=== PATIENT | male | born 1980 | race African-American/Black ===

== ENCOUNTER 2025-06-27 10:10 | Outpatient (CLI) | payer BC, SELFPAY ==
--- OUTSIDE RECORDS SUMMARY | 2025-06-27 10:23 | XMS_ITS ---
Author Name [facility] Address [address] [place] [address] Care Team Providers Care Pharmacy Sales Assistant Name Role Phone CECY DO Primary Care Provider Unavailabl e Insurance Providers: All historical and current Section Date Range: From patient's date of to the date document was created. This section includes the names of all active insurance providers for the patient. Insurance Provider Type of Coverage Plan Name Start of Policy Coverage End of Policy Coverage Group Number Member ID Insurance Provider's Telephone Number Policy Bell's Name Patient's Relationship to Policy Bell [place] PREFERRED PROVIDER ORGANIZAT ION (PPO) FEP BASIC FAM April 03, 2010 [id number] [phone] FIORDALIZA DÍAZ PATIENT ANTHE[place] F[place] PREFERRED PROVIDER ORGANIZAT ION (PPO) FEP BASIC FAM April 03, 2010 [id number] [phone] FIORDALIZA DÍAZ PATIENT [place] F[place] PREFERRED PROVIDER ORGANIZAT ION (PPO) FEP BASIC FAM April 03, 2010 [id number] [phone] FIORDALIZA DÍAZ PATIENT ANTHE[place] FEP PREFERRED PROVIDER ORGANIZAT ION (PPO) FEP BASIC FAMIL Y April 03, 2010 [id number] FIORDALIZA DÍAZ PATIENT ANTHEM FEP PREFERRED PROVIDER ORGANIZAT ION (PPO) FEP BASIC FAMIL Y April 03, 2010 [id number] [phone] FIORDALIZA DÍAZ PATIENT [place] F[place] PREFERRED PROVIDER ORGANIZAT ION (PPO) FEP-B ASIC- PPO April 03, 2010 [id number] [place] PATIENT [place] F[place] PREFERRED PROVIDER ORGANIZAT ION (PPO) FEP BASIC FAM April 03, 2010 [id number] [phone] BOX,FIORDALIZA PATIENT [place] ([id number]) PRESCRIPT ION FEP April 03, 2010 [id number] BOX,FIORDALIZA PATIENT [place] ([id number]) PRESCRIPT ION FEP April 03, 2010 [id number] BOX,FIORDALIZA PATIENT [place] FEP ([id number]) PRESCRIPT ION FEPRX April 03, 2010 [id number] [phone] BOX,FIORDALIZA PATIENT [place] FEP ([id number]) PRESCRIPT ION FEPRX April 03, 2010 [id number] [phone] BOX,FIORDALIZA PATIENT [place] FEP [id number] PRESCRIPT ION FEP RX April 03, 2010 [id number] [phone] BOX,FIORDALIZA PATIENT [place] FEP [id number] PRESCRIPT ION FEP RX April 03, 2010 [id number] [phone] BRE,FIORDALIZA PATIENT Selected Encounter This section includes the information on record at [place] for the Encounter. Date/Time Encounter Type Encounter Description Reason Provider Source Jun 22, 2025 07:48 AM Outpatient Encounter ADMIN PAT ACTIVTIES (MASGREGORIO) SHWETA DAVIS Encounter Template Text not used by [place] Plan of Treatment: Future Appointments (+ 6 months) and Future Tests (+/- 45 days) The Plan of Treatment section includes future care activities for the patient from all [place] treatmentfacilities. This section includes future appointments and future orders which are active, pending or scheduled. Future Appointments This section includes appointments that were scheduled to occur 6 months from the date of the Encounter, up to a maximum of 20 appointments. The data comes from all [place] treatment facilities. Appointment Date/Time Appointment Type Appointme nt Facility Name Jun 25, 2025 01:00 PM AMBULATORY - NONE [facility] Jul 09, 2025 11:00 AM AMBULATORY - NONE [facility] Jul 30, 2025 01:30 PM AMBULATORY - NONE Bryn Vazquez [facility] Oct 01, 2025 09:30 AM AMBULATORY - MEDICINE [facility] Active, Pending, and Scheduled Orders This section includes a listing of several types of active, pending, and scheduled orders, including clinic medications orders, diagnostic test orders, procedure orders and consult orders; where the start date of the order is 45 days before the date of the Encounter or 45 days after the date of theEncounter. The data comes from all [place] treatment facilities. Test Date/Time Test Type Test Details Facility Name Jun 22, 2025 12:00 AM Laboratory - Chemi stry Order OCCULT BLOOD FIT X1 SCREEN STOOL FECES SP [facility] Jul 30, 2025 12:00 AM Imaging - Magnetic Resonance Imaging (MRI) Order MRI SPINE LUMBAR W/O CONT [facility] Jul 30, 2025 12:00 AM Imaging - Magnetic Resonance Imaging (MRI) Order MRI SPINE CERVICAL W/O CONT [facility] Lab Results: +/- 30 days of the encounter This section includes the Chemistry and Hematology Lab Results on record with [place] for the patient. Radiology Reports and Pathology Reports are provided separately, in subsequent sections. Lab Results This section contains the Chemistry/Hematology Results that were resulted 30 days before or 30 daysafter the date of the Encounter. Date/Time Source Result Type Result - Unit Interpretation Reference Range Specimen Type Comment Jun 22, 2025 07:28 AM [facility] GLUCOSE,BLOOD-poct (STL) BLOOD Specimen Type: BLOOD Comment: Test Performed by: [id number] Meter #: [id number] Ordering Provider: RADHA JAMES Report Released Date/Time: Jun 22, 2025 07:31 AM Reporting Lab: [facility] [address] [facility] [id number] Performing Lab: [place] [address] [facility] [address] GLUCOSE,BLOOD-poct (STL) 133 mg/dL H 72-99 Social History: Smoking Status (Most current) and Tobacco Use (All prior to encounter date) This section includes the most current, and the historical, smoking and tobacco- related health factors from the [facility] where the Encounter took place. Current Smoking Status This section includes the most current smoking, or tobacco-related health factor, from the [place] facility where the Encounter took place. Date/Time Current Smoking Status Comment Vicenta juarez Apr 29, 2015 02:46 PM LIFETIME NON-USER OF TOBACCO [facility] Tobacco Use History This section includes a history of the smoking, or tobacco-related health factors, that were collected on or before the date of the Encounter. The data comes from the [place] facility where the Encounter took place. Date/Time Smoking Status/Tobacco Use Comment Cece logan Jun 29, 2014 02:52 PM LIFETIME NON-USER OF TOBACCO [facility] Jul 10, 2013 02:20 PM LIFETIME NON-USER OF TOBACCO [facility] May 24, 2009 08:42 AM LIFETIME NON-USER OF TOBACCO [facility] Encounter Notes: All associated encounter notes This section contains the clinical notes associated to the Encounter. Date/Time Encounter Note(s) Provider Source Jun 22, 2025 07:48 AM ANESTHESIOLOGY DAVID WSHEET: LOCAL TITLE: ANEGeorge INTRA-OP FLOWSHEET ST STANDARD TITLE: ANESTHESIOLOGY FLOWSHEET DATE OF NOTE: JUN 22, 2025@07:48 ENTRY DATE: JUN 22, 2025@07:48:06 AUTHOR: SHWETA DAVIS I EXP COSIGNER: URGENCY: STATUS: COMPLETED Patient: FIORDALIZA DÍAZ SSN: [id number] Date of Operation: 06/22/2025 Surgery Start Time: Surgery End Time: Anesthesia Care Start: 06/22/2025 7:34 Anesthesia Care End: 06/22/2025 7:37 ASA Number: 2 Procedure: colonoscopy Diagnosis: screening Staff: --------- SHWETA DAVIS PRIN. ANES. Procedure Date: 06/22/2025 Procedure Start Time: Procedure End Time: /caroline/ CHECO OCONNOR, FRACTIONATING STILL OPERATOR FRACTIONATING STILL OPERATOR, Anesthesiology Signed: 06/22/2025 07:48 SHWETA DAVIS I [facility]
--- OUTSIDE RECORDS SUMMARY | 2025-06-27 10:23 | XMS_ITS | Encounter Summary ---
Author Name [facility] [place] [facility] [place] [facility] [place] [facility] [place] Address [address] [place] [address] Care Team Providers Care Echocardiograph Technician Name Role Phone CECY DO Primary Care [...] FEP BASIC FAM April 03, 2010 [id number] [phone] FIORDALIZA GROVER PATIENT ANTHEM [place] FEP PREFERRED PROVIDER ORGANIZAT ION (PPO) FEP BASIC FAM April 03, 2010 112 [id number] [phone] FIORDALIZA GROVER PATIENT ANTHEM [place] FEP PREFERRED PROVIDER ORGANIZAT ION (PPO) FEP BASIC FAM April 03, 2010 112 [id number] [phone] FIORDALIZA GROVER PATIENT ANTHEM FEP PREFERRED PROVIDER ORGANIZAT ION (PPO) FEP BASIC FAMIL Y April 03, 2010 112 [id number] [phone] FIORDALIZA GROVER PATIENT ANTHEM FEP PREFERRED PROVIDER ORGANIZAT ION (PPO) FEP BASIC FAMIL Y April 03, 2010 112 [id number] [phone] FIORDALIZA GROVER PATIENT BC BS [place] FEP PREFERRED PROVIDER ORGANIZAT ION (PPO) FEP-B ASIC- PPO April 03, 2010 [id number] BOXFIORDALIZA PATIENT [place] FEP PREFERRED PROVIDER ORGANIZAT ION (PPO) FEP BASIC FAM April 03, 2010 112 [id number] [phone] BOXMARCON PATIENT [place] ([id number]) PRESCRIPT ION FEP April 03, 2010 [id number] BOX,FIORDALIZA PATIENT [place] ([id number]) PRESCRIPT ION FEP April 03, 2010 [id number] BOX,FIORDALIZA PATIENT [place] FEP ([id number]) PRESCRIPT ION FEPRX April 03, 2010 [id number] [phone] BOX,FIORDALIZA PATIENT [place] FEP ([id number]) PRESCRIPT ION FEPRX April 03, 2010 [id number] [phone] BOX,FIORDALIZA PATIENT [place] FEP [id number] PRESCRIPT ION FEP RX April 03, 2010 [id number] [phone] BOX,FIORDALIZA PATIENT [place] FEP [id number] PRESCRIPT ION FEP RX April 03, 2010 [id number] [phone] FIORDALIZA GROVER PATIENT Selected Encounter This section includes the information on record at [place] for the Encounter. Date/Time Encounter Type Encounter Description Reason Provider Source Sep 19, 2024 08:30 AM OFFICE O/P EST MOD 30 MIN PRIMARY CARE/MEDICINE ICD-10-CM E11.9 Type 2 diabetes mellitus without complications GABY JACINTO Monique Encounter Template Text not used by [place] Assessments - Encounter Diagnoses This section includes the primary and secondary diagnoses documented for the Encounter. Date/Time Primary/Secondary Diagnosis Diagnosis Name Provider Source Sep 30, 2024 04:30 PM PRIMARY Type 2 diabetes mellitus without complications GABY JACINTO [facility] Sep 30, 2024 04:30 PM SECONDARY Anxiety disorder, unspecified GABY JACINTO [facility] Sep 30, 2024 04:30 PM SECONDARY Constipation, unspecified GABY JACINTO [facility] Sep 30, 2024 04:30 PM SECONDARY Depression, unspecified GABY JACINTO [facility] Sep 30, 2024 04:30 PM SECONDARY Essential (primary) hypertension GABY JACINTO [facility] Sep 30, 2024 04:30 PM SECONDARY Gastro-esophageal reflux disease without esophagitis GABY JACINTO [facility] Sep 30, 2024 04:30 PM SECONDARY Gout, unspecified GAYB JACINTO [facility] Sep 30, 2024 04:30 PM SECONDARY Headache, unspecified GABY JACINTO [facility] Sep 30, 2024 04:30 PM SECONDARY Hyperlipidemia, unspecified GABY JACINTO [facility] Sep 30, 2024 04:30 PM SECONDARY Insomnia, unspecified GABY JACINTO [facility] Sep 30, 2024 04:30 PM SECONDARY Low back pain, unspecified GABY JACINTO [facility] Sep 30, 2024 04:30 PM SECONDARY Obesity, unspecified GABY JACINTO [facility] Sep 30, 2024 04:30 PM SECONDARY Obstructive sleep apnea (adult) (pediatric) GABY JACINTO [facility] Sep 30, 2024 04:30 PM SECONDARY Other constipation GABY JACINTO [facility] Sep 30, 2024 04:30 PM SECONDARY Pain in left knee GABY JACINTO [facility] Sep 30, 2024 04:30 PM SECONDARY Pain in right hip GABY JACINTO [facility] Sep 30, 2024 04:30 PM SECONDARY Unilateral primary osteoarthritis, left knee GABY JACINTO [facility] Sep 30, 2024 04:30 PM SECONDARY Vitamin B12 deficiency anemia, unspecified GABY JACINTO [facility] Sep 30, 2024 04:30 PM SECONDARY Vitamin D deficiency, unspecified GABY JACINTO [facility] Plan of Treatment: Future Appointments (+ 6 [...] The data comes from all [place] treatment [facility]. Appointment Date/Time Appointment Type Appointme nt Facility Name Sep 26, 2024 08:30 AM AMBULATORY - REHAB MEDICIN [facility] Oct 20, 2024 10:00 AM AMBULATORY - MEDICINE [facility] Oct 22, 2024 01:00 PM AMBULATORY - NONE [facility] Oct 28, 2024 10:30 AM AMBULATORY - MEDICINE [facility] Nov 10, 2024 06:35 PM AMBULATORY - MEDICINE [facility] Dec 19, 2024 02:00 PM AMBULATORY - NONE [facility] Lab Results: +/- 30 days of the encounter This section includes the Chemistry and Hematology Lab Results on record with [facility] for the patient. Radiology Reports and Pathology Reports are provided separately, in subsequent sections. Lab Results This section contains the Chemistry/Hematology Results that were resulted 30 days before or 30 daysafter the date of the Encounter. Date/Time Source Result Type Result - Unit Interpretation Reference Range Specimen Type Comment Sep 25, 2024 09:45 AM [facility] URIC ACID 24-HOUR URINE PANEL 24-HOUR URINE Specimen Type: 24-HOUR URINE No comment entered. Ordering Provider: GABY JACINTO Report Released Date/Time: Sep 19, 2024 08:27 AM Reporting Lab: [facility] [address] [facility] [phone] Performing Lab: [facility] [address] [facility] [address] VOLUME 2847 mL UNCALCULATED URINE URIC ACID comment URIC ACID 24-HOUR URINE 740 L 120-820 Sep 19, 2024 09:11 AM [facility] HGA1C BLOOD Specimen Type: BLOOD No comment entered. Ordering Provider: GABY JACINTO Report Released Date/Time: Sep 19, 2024 08:27 AM Reporting Lab: [facility] [address] [facility] [phone] Performing Lab: [facility] [address] [facility] [facility] [phone] HGA1C 6.3 H 4.0-6.0 Sep 19, 2024 09:11 AM [facility] LIPID PANEL (STL) PLASMA Specimen Type: PLASM A Comment: No hemolysis noted. Ordering Provider: GABY JACINTO Report Released Date/Time: Sep 19, 2024 08:27 AM Reporting Lab: [facility] [address] [place] [phone] Performing Lab: [facility] [address] [place] [phone] CHOLESTEROL 116 mg/dL 0-200 TRIGLYCERIDE 180 mg/dL H 0-150 CALCULATED LDL 51 mg/dL HDL(New) 29 mg/dL L >40 Sep 19, 2024 09:11 AM [facility] VITAMIN D, 25-HYDROXY SERUM Specimen Type: SE RUM Comment: The listed sex of this patient may not be a typical indication for this test. Therefore, reference ranges or interpretive criteria listed may not be valid. Clinical correlation suggested. Ordering Provider: GABY JACINTO Report Released Date/Time: Sep 19, 2024 08:27 AM Reporting Lab: [facility] [address] [facility] [phone] Performing Lab: [facility] [address] [place] [phone] VITAMIN D, 25-HYDROXY 33.3 ng/mL 30-96 Sep 19, 2024 09:11 AM [facility] COMPREHENSIVE METABOLIC PANEL PLASMA Specimen Type: PLASMA Comment: No hemolysis noted. Ordering Provider: GABY JACINTO Report Released Date/Time: Sep 19, 2024 08:27 AM Reporting Lab: [facility] [address] [facility] [phone] Performing Lab: [facility] [address] [facility] [phone] CREATININE 1.06 mg/dL 0.7-1.3 UREA NITROGEN 15.0 mg/dL 9.0-25.0 GLUCOSE 126 mg/dL H 72-99 SODIUM 138 meq/L 136-145 POTASSIUM 4.1 meq/L 3.5-5 CHLORIDE 104 meq/L 98-107 CARBON DIOXIDE 23 meq/L 22-31 CALCIUM 9.1 mg/dL 8.4-10.4 PROTEIN 7.8 g/dL 6-8.6 ALBUMIN 4.2 g/dL 3.4-5 TOTAL BILIRUBIN 0.9 mg/dL 0.2-1.2 ALKALINE PHOSPHATASE 82 U/L 40-150 AST/SGOT 20 U/L 5-34 ALT/SGPT 24 U/L 8-40 EGFR (CKD-EPI 2020) 88.8 >60 Sep 19, 2024 09:11 AM [facility] TSH (MA-PB) SERUM Specimen Type: SERUM Comment: The listed sex of this patient may not be a typical indication for this test. Therefore, reference ranges or interpretive criteria listed may not be valid. Clinical correlation suggested. Ordering Provider: GABY JACINTO Report Released Date/Time: Sep 19, 2024 08:27 AM Reporting Lab: [facility] [address] [facility] [phone] Performing Lab: [facility] [address] [place] [phone] TSH 0.858 u[IU]/mL 0.47-5 Sep 19, 2024 09:11 AM [facility] B12 SERUM Specimen Type: SERUM Comment: The listed sex of this patient may not be a typical indication for this test. Therefore, reference ranges or interpretive criteria listed may not be valid. Clinical correlation suggested. Ordering Provider: GABY JACINTO Report Released Date/Time: Sep 19, 2024 08:27 AM Reporting Lab: [facility] [address] [facility] [address] Performing Lab: [facility] [address] [facility] [phone] B12 214 pg/mL 213-816 Sep 19, 2024 09:11 AM [facility] CBC BLOOD Specimen Type: BLOOD No comment entered. Ordering Provider: GABY JACINTO Report Released Date/Time: Sep 19, 2024 08:27 AM Reporting Lab: [address] [phone] Performing Lab: [address] [address] WBC 5.3 10*3/uL 3.6-11.2 RBC 5.55 10*6/uL 4.10-5.70 HGB 15.8 g/dL 13.1-16.8 HCT 47.9 38.2-48.4 MCV 86.3 fL 80.0-100.0 MCH 28.5 pg 27.0-34.0 MCHC 33.0 g/dL 33.0-36.0 PLT 215 10*3/uL 150-400 MPV 11.2 fL 7.5-11.2 RDW 13.7 11.8-15.1 LYMPHOCYTES, AUTO % 15 MONOCYTES, AUTO % 7 NEUTROPHILS, AUTO % 73 EOSINOPHILS, AUTO % 4 BASOPHILS, AUTO % 1 LYMPHOCYTES, ABSOLUTE 0.78 10*3/uL 0.77- 4.50 MONOCYTES, ABSOLUTE 0.39 10*3/uL 0.19-0. 80 NEUTROPHILS, ABSOLUTE 3.91 10*3/uL 2.10- 8.00 EOSINOPHILS, ABSOLUTE 0.20 10*3/uL 0.00- 0.60 BASOPHILS, ABSOLUTE 0.04 10*3/uL 0.00-0. 20 Sep 19, 2024 09:11 AM [facility] PROST. SPECIFIC AG.(PB-STL) SERUM Specimen Ty pe: SERUM Comment: The listed sex of this patient may not be a typical indication for this test. Therefore, reference ranges or interpretive criteria listed may not be valid. Clinical correlation suggested. Ordering Provider: GABY JACINTO Report Released Date/Time: Sep 19, 2024 08:58 AM Reporting Lab: [facility] [address] [facility] [phone] Performing Lab: [facility] [address] [facility] [address] PROST. SPECIFIC AG.(PB-STL) 0.694 ng/mL 0-4 Sep 19, 2024 09:11 AM [facility] MICRAL/CREAT PROFILE (STL) URINE Specimen Typ e: URINE No comment entered. Ordering Provider: GABY JACINTO Report Released Date/Time: Sep 19, 2024 08:27 AM Reporting Lab: [facility] [address] [facility] [address] Performing Lab: [facility] [address] [facility] [phone] URINE ALBUMIN (PB-STL) 16.9 mg/L uACR (STL) 8 mg/g 0-29 CREATININE URINE/OTHERS 209.4 mg/dL H 63-1 66 Sep 19, 2024 09:11 AM [facility] URINALYSIS (STL-PB) URINE Specimen Type: URIN E No comment entered. Ordering Provider: GABY JACINTO Report Released Date/Time: Sep 19, 2024 08:58 AM Reporting Lab: [address] [phone] Performing Lab: [address] [phone] URINE COLOR Light-Yellow Yellow U.BILIRUBIN Negative mg/dL Negative U.PH 6.0 5.0-8.0 APPEARANCE Clear Clear U.NITRITE Negative mg/dL Negative URN.GLUCOSE > mg/dL H Negative URN.PROTEIN 20 mg/dL H URN.UROBILINOGEN Normal mg/dL Normal URN.BLOOD Negative mg/dL Negative-Trace URN.KETONES Negative mg/dL Negative-Trac e URN.LEUK.EST. Negative mg/dL Negative-Tr ghazal URN.SPECIFIC GRAVITY 1.034 H URINE WBC/HPF <1 /[HPF] 0-5 URINE RBC/HPF <1 /[HPF] 0-5 MUCUS RARE /[LPF] Negative-Rare Vital Signs: All taken on the encounter date This section contains inpatient and outpatient Vital Signs collected on the date of the Encounter. Date/Time Temperature Pulse Blood Pressure Respiratory Rate SP02 Pain Height Weight Body Mass Index Source Sep 19, 2024 08:53 AM 131/91 [facility] Sep 19, 2024 08:25 AM 130/91 [facility] Sep 19, 2024 08:24 AM 98.3 94 129/92 18 96 4 303 41 [facility] Social History: Smoking Status (Most current) and Tobacco Use (All prior to encounter date) This section includes the most current, and the historical, smoking and tobacco- related health factors from the [place] facility where the Encounter took place. Current Smoking Status This section includes the most current smoking, or tobacco-related health factor, from the [place] facility where the Encounter took place. Date/Time Current Smoking Status Comment Facil ity Aug 02, 2023 02:00 PM [facility] Tobacco Use History This section includes a history of the smoking, or tobacco-related health factors, that were collected on or before the date of the Encounter. The data comes from the [place] facility where the Encounter took place. Date/Time Smoking Status/Tobacco Use Comment F acility Apr 28, 2022 02:00 PM VA-TOBACCO NEVER [facility]ED [facility] Feb 04, 2021 09:00 AM VA-TOBACCO NEVER [facility]ED [facility] Jul 07, 2019 03:37 PM VA-TOBACCO NEVER [facility]ED [facility] Dec 11, 2018 01:41 PM VA-TOBACCO NEVER USED [facility] May 29, 2017 03:13 PM LIFETIME NON-USER OF TOBACCO [facility] Nov 29, 2016 03:21 PM LIFETIME NON-USER OF TOBACCO [facility] Encounter Notes: All associated encounter notes This section contains the clinical notes associated to the Encounter. Date/Time Encounter Note(s) Provider Source Oct 14, 2024 11:41 AM PHYSICIAN LETTERS: LOCAL TITLE: TEST RESULT GENERAL LETTER STL STANDARD TITLE: PHYSICIAN LETTERS DATE OF NOTE: OCT 14, 2024@11:41 ENTRY DATE: OCT 14, 2024@11:41:39 AUTHOR: GABY JACINTO COSIGNER: URGENCY: STATUS: COMPLETED [facility] [address] [place] [address] OCT 14, 2024 FIORDALIZA GROVER [address] [place] [address] [place], [place] [address] Dear Fiordaliza Grover, I would like to update you on your recent test results. EMG conclusion 09/26/24: Abnormal study. The electrophysiological changes seen are suggestive of: This is most likely diabetic polyneuropathy with his known history and current symptoms. I am unable to assess small fiber neuropathy with this study. However, the above findings may be related the large fiber involvement. No evidence of nerve root irritation/radiculopathy with normal EMG findings today. These readings are abnormal. Please schedule a telehealth appointment to discuss these results further. If you have any questions please call your behavioral health case manager. I look forward to seeing you at your next clinic appointment. Thank you for choosing the [facility] for your healthcare. FUTURE APPOINTMENTS: 10/22/2024 13:00 [facility] DENTAL SPEC 10/28/2024 10:30 PONCE-ST CLR PACT PHONE LESLIE 12/19/2024 14:00 PONCE-HW CHIRO CONSULT 8TH F 03/23/2025 09:00 PONCE-ST CLR VVC PACT 3 PCP Sincerely, Gaby Jacinto DNP, FORGE HELPER, SURFACER OPERATOR-C Primary Care Nurse Practitioner BOX,GABY MONTAÑO [facility] Oct 06, 2024 04:33 PM PHYSICIAN LETTERS: LOCAL TITLE: TEST RESULT GENERAL LETTER STL STANDARD TITLE: PHYSICIAN LETTERS DATE OF NOTE: OCT 06, 2024@16:33 ENTRY DATE: OCT 06, 2024@16:33:39 AUTHOR: GABY JACINTO EXP COSIGNER: URGENCY: STATUS: COMPLETED [facility] [address] [place] [address] OCT 06, 2024 FIORDALIZA GROVER [address] [facility] [place], [place] [address] Dear Fiordaliza Grover, I would like to update you on your recent test results. LIPID PROFILE - High cholesterol and triglycerides (lipids) are risk factors for heart disease. Your cholesterol should fall between 140 and 200, and your triglycerides levels should be less than or equal to 150. HDL is the good cholesterol and should ideally be greater than 40. LDL is the bad cholesterol and optimal levels should be less than 100 (near optimal is between 100 and 129). TRIGLYCERIDE 180 H mg/dL 09/19/2024 09:11 CHOLESTEROL 116 mg/dL 09/19/2024 09:11 HDL(New) 29 L mg/dL 09/19/2024 09:11 CALCULATED LDL 51 mg/dL 09/19/2024 09:11 These results are abnormal. Continue Atorvastatin as prescribed. See education below. -HDL's (high-density lipoproteins) and LDL's (low-density lipoproteins) transport cholesterol in your blood. LDLs carry cholesterol into your cells and HDLs carry it away and dispose of it in the liver, having a protective effect on your circulatory system. -HDL is good cholesterol and should be above 50. -LDL is bad cholesterol and should be less than 100 for most people including diabetics and less than 70 for people with heart disease. This level is the most important predictor of heart disease in a cholesterol panel. -Triglycerides (TG) are fatty compounds that are a combination of three (tri) fatty acids and glycerin. Body fat is made up of mostly stored triglycerides. -Triglycerides are another type of fat in the blood and should be less than 150. -Total cholesterol should be less than 200. You can improve these values by changing your diet and exercise regimen. Please review the following recommendations: -Incorporate 30-minutes of exercise with walking 5 days per week. Increasing your physical activity can help with weight management and improve your cholesterol levels. -Carefully review nutrition labels. Decrease intake of saturated fats or trans-fats. Monitor your salt intake. -Reduce your intake of sugars such as cake or candy. Additional hidden sugars are found foods such as pastries, breads, and pasta. Monitor your intake of these items as well and try not to consume on a daily basis. -Increase your intake of fresh or frozen fruits and vegetables which is preferred over canned or processed items. Canned foods have high amounts of sugar and salt. -Low fat dairy products are encouraged. -Leaner meats such as chicken or fish can have less fat that beef or pork. GLUCOSE - Your blood sugar or glucose level result GLUCOSE 126 H mg/dL 09/19/2024 09:11 These results are abnormal. A normal non-fasting glucose level is less than 140, and a normal fasting glucose test is less than 100. HEMOGLOBIN A1C - Gives us information about your diabetes (sugar or glucose) control over the past 3 months. Your target is to keep your A1C below 7 %. HGA1C 6.3 H % 09/19/2024 09:11 These results have improved since last check. Great job! Continue medication as prescribed. Continue to check blood sugars as recommended. Reduce the intake of sugary foods/beverages as well as eliminate regular soda. Monitor the frequency and portion sizes of pasta, bread, cereal, potatoes, white rice etc. Eat more whole grains including whole grain breads and pasta when possible. MICROALBUMIN - The microalbumin to creatinine ratio test is most commonly used to screen for kidney problems. MICROALBUMIN No MICRAL/CREAT RATIO (STL) data found Collection time: Sep 19, 2024@09:11 Test Name Result Units Range --------- ------ ----- ----- uACR (STL) 8 mg/g 0 - 29 These readings are within normal limits. CBC - A complete blood count (CBC) gives important information about the kinds and numbers of cells in the blood, especially red blood cells, white blood cells, and platelets. HGB 15.8 g/dL 09/19/2024 09:11 HEMATOCRIT 47.9 % (09/19/24 09:11) PLT 215 10*3/uL 09/19/2024 09:11 WHITE BLOOD COUNT 5.3 10*3/uL (09/19/24 09:11) These readings are within normal limits. B12 - Helps maintain healthy nerve cells, red blood cells, and is also needed to make DNA. B12 214 pg/mL 09/19/2024 09:11 These readings are within normal limits. CHEM 7 - This is important information about the current status of your kidneys, liver, and electrolyte and acid/base balance as well as of your blood sugar and blood proteins. SODIUM 138 mEq/L 09/19/2024 09:11 POTASSIUM 4.1 mEq/L 09/19/2024 09:11 CHLORIDE 104 mEq/L 09/19/2024 09:11 UREA NITROGEN 15.0 mg/dL 09/19/2024 09:11 CREATININE 1.06 mg/dL 09/19/2024 09:11 CALCIUM 9.1 mg/dL 09/19/2024 09:11 CARBON DIOXIDE 23 mEq/L 09/19/2024 09:11 EGFR (CKD-EPI 2020) 88.8 09/19/2024 09:11 These readings are within normal limits. LIVER FUNCTION PANEL - These are tests for liver function: PROTEIN 7.8 g/dL 09/19/2024 09:11 ALBUMIN 4.2 g/dL 09/19/2024 09:11 TOTAL BILIRUBIN 0.9 mg/dL 09/19/2024 09:11 ALKALINE PHOSPHATASE 82 U/L 09/19/2024 09:11 AST/SGOT 20 U/L 09/19/2024 09:11 ALT/SGPT 24 U/L 09/19/2024 09:11 These readings are within normal limits. PSA - Prostate-specific antigen is a protein produced by cells of the prostate gland. The PSA test measures the level of PSA in the blood. PSA PROST. SPECIFIC AG.(PB-STL) 0.694 ng/mL 09/19/2024 09:11 These readings are within normal limits. TSH - Thyroid-stimulating hormone (also known as TSH or thyrotropin) is a peptide hormone synthesized and secreted by thyrotrope cells in the anterior pituitary gland, which regulates the endocrine function of the thyroid gland. TSH 0.858 uIU/mL 09/19/2024 09:11 These readings are within normal limits. VITAMIN D - Helps promote the proper utilization of calcium and phosphorus, thereby producing proper bone maintenance. VITAMIN D, 25-HYDROXY 33.3 ng/mL 09/19/2024 09:11 These readings are within normal limits. URINALYSIS - A urinalysis (or UA) is an array of tests performed on urine and one of the most common methods of medical diagnosis. URINALYSIS URINE COLOR Light-Yellow 09/19/2024 09:11 APPEARANCE Clear 09/19/2024 09:11 U.PH 6.0 09/19/2024 09:11 U.BILIRUBIN Negative mg/dL 09/19/2024 09:11 U.NITRITE Negative mg/dL 09/19/2024 09:11 URINE RBC/HPF <1 /HPF 09/19/2024 09:11 URINE WBC/HPF <1 /HPF 09/19/2024 09:11 MUCUS RARE /LPF 09/19/2024 09:11 These readings are within normal limits. If you have any questions please call your behavioral health case manager. I look forward to seeing you at your next clinic appointment. Thank you for choosing the [facility] for your healthcare. FUTURE APPOINTMENTS: 10/28/2024 10:30 PONCE-ST CLR PACT PHONE LESLIE 12/19/2024 14:00 PONCE- CHIRO CONSULT 8TH F 03/23/2025 09:00 PONCE-ST CLR VVC PACT 3 PCP Sincerely, Gaby Jacinto DNP, FORGE HELPER, SURFACER OPERATOR-C Primary Care Nurse Practitioner BOX,GABY MONTAÑO [facility] Sep 19, 2024 08:26 AM NURSING NOTE: LOCAL TITLE: V15 PACT FACE TO FACE NOTE ST STANDARD TITLE: NURSING NOTE DATE OF NOTE: SEP 19, 2024@08:26 ENTRY DATE: SEP 19, 2024@08:26:17 AUTHOR: SAUNDRA MARTINEZ COSIGNER: URGENCY: STATUS: COMPLETED Provider Visit: Patient Identifiers : Full Name Date of Reason for visit: Established Follow-Up Patient states he is here due to back pain, neck and shoulder pain. Patient states he has muscle spasm in legs/would like labs done. Mode of Arrival: Ambulatory Allergy Review: METHADONE, METFORMIN Allergy list reviewed and remains current. Recent Vital Signs: Temperature: 98.3 F [36.8 C] (09/19/2024 08:24) Pulse: 94 (09/19/2024 08:24) Respiration: 18 (09/19/2024 08:24) B/P: 130/91 (09/19/2024 08:25) Pain: 4 (09/19/2024 08:24) Wt: 303 lb [137.44 kg] (09/19/2024 08:24) Ht: 72 in [182.9 cm] (04/28/2022 14:10) BMI: 41.2 POX: 96% (09/19/2024 08:24) Would you like to discuss any personal problem, family problem, alcohol use, drug use, or a mental or emotional illness? No [facility] ([facility]), please select appointment type: Face to face: Yes- Done Contact provided Primary Care phone number and encouraged to call if any questions or concerns. Review that after hours nurse line [phone] and emergency room are available 04/06 for patient use. Contact verbalized good understanding. Sexual Orientation - CP,L,N,P,PH,PS,S,U: The patient thinks of their sexual orientation as: Straight or Heterosexual Depression Screening - V: Perform PHQ-2 A PHQ-2 screen was performed. The score was 0 which is a negative screen for depression. Over the past two weeks, how often have you been bothered by the following problems? 1. Little interest or pleasure in doing things Not at all 2. Feeling down, depressed, or hopeless Not at all COVID-19 Immunization - L,N,P,PH,U: Refused Pfizer Monovalent COVID-19 vaccine Immunization: COVID-19 (PFIZER), MRNA, LNP-S, PF, BECCA-SUCROSE, 30 MCG/0.3 ML (AGES 12+ YEARS) Refusal Reason: PATIENT DECISION Patient refuses all immunization(s) in the COVID-19 group Date Documented: 09/19/24 08:29 Influenza Immunization - L,N,P,PH,U: Deferral / Refusal The patient declines to receive the recommended dose of seasonal influenza vaccine. Immunization: INFLUENZA, UNSPECIFIED FORMULATION Refusal Reason: PATIENT DECISION Patient refuses all immunization(s) in the FLU group Date Documented: 09/19/24 08:29 Suicide Screen - V: C-SSRS Screening [place] Suicide Severity Rating Scale (C-SSRS) screener 1. Over the past month, have you wished you were or wished you could go to sleep and not wake up? No 2. Over the past month, have you had any actual thoughts of killing yourself? No 3. Over the past month, have you been thinking about how you might do this? Response not required due to responses to other questions. 4. Over the past month, have you had these thoughts and had some intention of acting on them? Response not required due to responses to other questions. 5. Over the past month, have you started to work out or worked out the details of how to kill yourself? Response not required due to responses to other questions. 6. If yes, at any time in the past month did you intend to carry out this plan? Response not required due to responses to other questions. 7. In your lifetime, have you ever done anything, started to do anything, or prepared to do anything to end your life (for example, collected pills, obtained a gun, gave away valuables, went to the roof but didn't jump)? No 8. If YES, was this within the past 3 months? Response not required due to responses to other questions. /caroline/ SAUNDRA MARTINEZ LPN LICENSED PRACITCAL NURSE Signed: 09/19/2024 08:30 SAUNDRA MARTINEZ [facility] Sep 19, 2024 08:23 AM PRIMARY CARE NOTE: LOCAL TITLE: PRIMARY CARE PROVIDER ESTABLISHED VISIT [facility] STANDARD TITLE: PRIMARY CARE NOTE DATE OF NOTE: SEP 19, 2024@08:23 ENTRY DATE: SEP 19, 2024@08:23:31 AUTHOR: GABY JACINTO COSIGNER: URGENCY: STATUS: COMPLETED PRIMARY CARE PROVIDER ESTABLISHED VISIT [facility] Has ADDENDA REASON FOR VISIT/CHIEF COMPLAINT: Evaluation and management of chronic medical conditions/My scheduled visit HPI: Patient is a 43 year old BLACK OR MALE who presents to the clinic for evaluation and management of chronic medical conditions. Patient denies any recent ED visits or hospitalizations. Patient goes by Fiordaliza. Private providers: -Patient prefers for the [facility] to manage his primary care. -Private PCP Dr. Albright every 6 months in [place]. #DM 2: -HGA1C 7.5 H %08/03/2023. -Medications: SEMAGLUTIDE, Empagliflozin, METFORMIN, INSULIN,ASPART and INSULIN,GLARGINE-YFGN. -Reports medication compliance. -Blood sugar readings at home: <150 per patient. -Eye exam: Per [facility] optometry. -Foot exam: See reminders. -Micral: 02/13/23. Due. -Statin: Yes. -ACEI: Yes. -Denies recent hypo/hyperglycemia episodes. -Followed by [facility] pharmacist historically. #HTN: -Medications: Lisinopril. -Reports compliance to medication regimen. -Reports having blood pressure machine at home. -Blood pressure readings at home: >140/90. -Denies CP, SOB, heart palpitations, headaches, blurred vision, dizziness/lightheadedness. #HLD: -Medication: Atorvastatin. -Reports compliance with medication regimen. -Denies any new onset of myalgias. #Obesity: -BMI: 41.18. -Diet: Regular. -Exercise: Denies. #ILSA: -Denies nightly CPAP use. Reports he is intolerable. #GERD: -Medication: Omeprazole. -Reports compliance with medication regimen. -Denies concerns today. #Gout: -Medication: Allopurinol. -Denies compliance with medication regimen. -Denies any recent gout attacks. #Vitamin D deficiency: -Reports compliance with supplementation. #B12 Deficiency: -Reports compliance with supplementation. #Constipation: -Medication: Docusate and Miralax PRN. Declines renewal today. -Controlled per patient. #Left knee pain/OA: -Participated in PT for his knee historically. -Medication: Diclofenac gel and Meloxicam. Declines renewal of Meloxicam. -Has knee sleeve. #Depression/Anxiety/Insomnia: -Stable per patient. -Denies SI/HI. #Headache: -Stable, denies concerns today. -Patient reports notices this is worst when he is not sleeping well. -Denies changes in his headache pattern. #Right hip pain: -Onset: 2022. -Duration: Constant. -Character: Sharp, ache. -Aggravating factors: Prolonged walking. -Relieving factors: Stretching. -Medications: Lidocaine patches and Tylenol PRN. -Treatments: Denies. -Injury: Denies. -Imaging: Denies. -Patient had PT consult 03/06/23. #Hx CP: -Resolved. -Patient had stress test 04/20/23 at the [facility]. -Patient had EKG 06/25/23 at the [facility]. -Patient had echocardiogram 08/15/23 at the [facility]. #LBP: -Onset: Began his in 30s. -Reports having neuropathy to his bilateral legs R>L. -Duration: Intermittent. -Character: Sharp, numbness. -Aggravating factors: Prolonged standing or walking. -Relieving factors: Rest. -Medications: Methocarbamol without relief. -Treatments: Denies. -Injury: Denies. -Imaging: Has obtained historically. Reports having a bulging disc historically. -Denies bowel or bladder incontinence and saddle anesthesia. SOURCE(S) OF HISTORY: Patient PAST MEDICAL HISTORY: 1) Benign essential hypertension (SNOMED CT 3549891) 2) Sleep apnea (SNOMED CT 04161164) 3) Osteoarthritis of knee (SNOMED CT 419263315) 4) Diabetes mellitus type 2 5) Insomnia 6) Gout 7) Constipation 8) Hyperlipidemia 9) Gastroesophageal reflux disease 10) Obesity 11) Vitamin D deficiency 12) Decreased vitamin B12 level 13) Constipation 14) Pain of left knee region 15) Depression 16) Anxiety 17) Headache 18) Pain in right hip joint SOCIAL HISTORY: Tobacco: Denies. Alcohol: Has 1 drink twice per week. Illicit: Denies. ALLERGIES: METHADONE, METFORMIN ALLERGY REVIEW: Allergy list reviewed and remains current. MEDICATIONS: Active and Recently Outpatient Medications (excluding Supplies): Active Outpatient Medications Status 1) ALLOPURINOL 100MG TAB TAKE ONE TABLET BY MOUTH ONCE A ACTIVE DAY FOR GOUT. TAKE WITH PLENTY OF WATER. 2) ATORVASTATIN CALCIUM 40MG TAB TAKE ONE-HALF TABLET BY ACTIVE MOUTH EVERY EVENING FOR CHOLESTEROL. REPORT ANY UNEXPLAINED MUSCLE PAIN/WEAKNESS TO PROVIDER. 3) CHOLECALCIF 50MCG (D3-2,000UNIT) TAB TAKE TWO TABLETS ACTIVE BY MOUTH ONCE A DAY FOR VITAMIN D DEFICIENCY 4) CYANOCOBALAMIN 500MCG TAB TAKE ONE TABLET BY MOUTH ACTIVE ONCE A DAY FOR B12 SUPPLEMENTATION 5) DICLOFENAC NA 1% TOP GEL APPLY 4 GM TO AFFECTED ACTIVE AREA(S) FOUR TIMES A DAY FOR PAIN/INFLAMMATION; NOT MORE THAN 16 GRAMS DAILY TO ANY LOWER EXTREMITY JOINT. NOT MORE THAN 8 GRAMS DAILY TO ANY UPPER EXTREMITY JOINT. MAX 32GM/DAY OVER ALL JOINTS. (MEASURE DOSE WITH RULER ATTACHED INSIDE BOX) 6) EMPAGLIFLOZIN 25MG TAB TAKE ONE-HALF TABLET BY MOUTH ACTIVE ONCE A DAY 7) HYDROPHILIC (EQV EUCERIN) TOP CREAM APPLY LIGHTLY TO ACTIVE AFFECTED AREA(S) ONCE A DAY FOR DRY SKIN. (EXTERNAL USE ONLY) 8) INSULIN SYRINGE 0.5ML 30G 12MM USE 1 SYRINGE UNDER ACTIVE THE SKIN ONCE A DAY TO USE WITH INSULIN 9) INSULIN,ASPART(EQV-NOVLG)100UN/ ML FLXPEN INJECT 10 ACTIVE UNITS UNDER THE SKIN THREE TIMES A DAY BEFORE MEALS FOR BLOOD SUGAR CONTROL. ADMINISTER 10 MINUTES BEFORE FOOD DIRECTED. REFRIGERATE UN-OPENED PENS. DISCARD CARTRIDGE 28 DAYS AFTER OPENING. 10) INSULIN,GLARGINE-YFGN 100UNIT/ML INJ INJECT 42 UNITS ACTIVE UNDER THE SKIN ONCE A DAY TO CONTROL BLOOD SUGAR. ADMINISTER AT SAME TIME EACH DAY DIRECTED. DISCARD ANY VIAL 28 DAYS AFTER OPENING. 11) LIDOCAINE 5% PATCH APPLY 1 PATCH TO SKIN SITE ONCE A ACTIVE DAY NEEDED APPLY PATCH AND PRESS FIRMLY FOR 10-15 SECONDS. KEEP ON FOR 12 HOURS THEN REMOVE PATCH FOR 12 HOURS. 12) LISINOPRIL 40MG TAB TAKE ONE TABLET BY MOUTH ONCE A ACTIVE (S) DAY FOR HEART OR BLOOD PRESSURE 13) METFORMIN HCL 500MG 24HR SA TAB TAKE TWO TABLETS BY ACTIVE MOUTH ONCE A DAY FOR BLOOD SUGAR CONTROL. TAKE WITH FOOD. AVOID ALCOHOL. DISCONTINUE BEFORE GETTING XRAY DYE. 14) METHOCARBAMOL 750MG TAB TAKE 1 TABLET BY MOUTH THREE ACTIVE TIMES A DAY NEEDED FOR MUSCLE RELAXANT 15) OMEPRAZOLE 40MG EC CAP TAKE ONE CAPSULE BY MOUTH ACTIVE EVERY MORNING BEFORE A MEAL TO LOWER STOMACH ACID. TAKE 30 MINUTES PRIOR TO FOOD. Active Non-VA Medications Status 1) Non-VA ACETAMINOPHEN TAB BY MOUTH ACTIVE 2) Non-VA SEMAGLUTIDE 0.25MG/0.375ML INJ PEN 3ML 0.5MG ACTIVE UNDER THE SKIN EVERY WEEK 17 Total Medications REVIEW OF SYSTEMS: Constitutional: Denies weight loss, fever, chills. Ears, Nose, Mouth, Throat: Denies nasal drainage or sore throat. Denies dizziness. Endocrinology: Denies heat or cold intolerance, polydipsia, polyuria, or polyphagia. Cardiovascular: Denies chest pain, palpitations, or dizziness. Respiratory: Denies cough or shortness of breath. ABD/GI: Denies abdominal pain, nausea, vomiting, constipation, diarrhea or incontinence. Musculoskeletal/Extremities: Denies edema. Denies pain. /MANAGER TRANSFUSION: Denies frequency, hesitancy, urgency, or hematuria. Psychology: Denies insomnia or SI/HI. Denies anxiety or depression. Neurology: Denies ZAVALA, tremors, neuropathy, or seizures. Skin: Denies rashes, skin lesions. PHYSICAL EXAMINATION: VITALS (most recent, as listed in the electronic record): Temperature: 98.3 F [36.8 C] (09/19/2024 08:24) BP: 131/91 (09/19/2024 08:53) Pulse: 94 (09/19/2024 08:24) Resp: 18 (09/19/2024 08:24) PulsOx: 96% (09/19/2024 08:24) Pain: 4 (09/19/2024 08:24) Weight: Measurement DT WEIGHT LB(KG)[BMI] 09/19/2024 08:24 303(137.44)[41*] 01/29/2024 14:10 309(140.16)[42*] HEENT: EOMI, PERRLA, Moist mucous membranes. No Scleral icterus or cervical lymphadenopathy. Lungs: Clear to auscultation bilaterally. No accessory muscle use. Cardiovascular: Regular rate and rhythm. No murmur. No JVD. Abdomen: Soft, nontender and non-distended. No palpable masses. Positive bowel sounds in all four quadrants. Extremities: No edema. Nontender. Full ROM to all joints. Gait steady. : Deferred. Neurologic: No focal neurological deficits. Psychiatric: Appropriate mood and affect. Skin: Skin warm, dry and intact. No lesions or rashes noted. DATA REVIEW: HGA1C 7.5 H % 08/03/2023 08:24 ======== Lipid Panel: TRIGLYCERIDE 239 H mg/dL 08/03/2023 08:24 CHOLESTEROL 123 mg/dL 08/03/2023 08:24 HDL(New) 31 L mg/dL 08/03/2023 08:24 CALCULATED LDL 44 mg/dL 08/03/2023 08:24 ====== CMP: SODIUM 142 mEq/L 06/23/2023 22:30 POTASSIUM 3.8 mEq/L 06/23/2023 22:30 CHLORIDE 106 mEq/L 06/23/2023 22:30 UREA NITROGEN 19.7 mg/dL 06/23/2023 22:30 CREATININE 1.20 mg/dL 06/23/2023 22:30 CALCIUM 9.0 mg/dL 06/23/2023 22:30 PROTEIN 7.4 g/dL 06/23/2023 22:30 ALBUMIN 4.4 g/dL 06/23/2023 22:30 ALKALINE PHOSPHATASE 74 U/L 06/23/2023 22:30 ALT/SGPT 15 U/L 06/23/2023 22:30 AST/SGOT 18 U/L 06/23/2023 22:30 TOTAL BILIRUBIN 0.9 mg/dL 06/23/2023 22:30 CARBON DIOXIDE 24 mEq/L 06/23/2023 22:30 GLUCOSE 110 H mg/dL 06/23/2023 22:30 EGFR (CKD-EPI 2020) 77.0 06/23/2023 22:30 ======= CBC: WBC 6.4 10*3/uL 06/23/2023 22:30 RBC 5.38 10*6/uL 06/23/2023 22:30 HGB 15.4 g/dL 06/23/2023 22:30 HCT 46.3 % 06/23/2023 22:30 MCV 86.1 fL 06/23/2023 22:30 MCH 28.6 pg 06/23/2023 22:30 MCHC 33.3 g/dL 06/23/2023 22:30 RDW 14.5 % 06/23/2023 22:30 PLT 222 10*3/uL 06/23/2023 22:30 MPV 10.6 fL 06/23/2023 22:30 NEUTROPHILS, AUTO % 61 % 06/23/2023 22:30 LYMPHOCYTES, AUTO % 25 % 06/23/2023 22:30 MONOCYTES, AUTO % 7 % 06/23/2023 22:30 EOSINOPHILS, AUTO % 7 % 06/23/2023 22:30 BASOPHILS, AUTO % 0 % 06/23/2023 22:30 NEUTROPHILS, ABSOLUTE 3.89 10*3/uL 06/23/2023 22:30 LYMPHOCYTES, ABSOLUTE 1.57 10*3/uL 06/23/2023 22:30 MONOCYTES, ABSOLUTE 0.46 10*3/uL 06/23/2023 22:30 EOSINOPHILS, ABSOLUTE 0.47 10*3/uL 06/23/2023 22:30 BASOPHILS, ABSOLUTE 0.02 10*3/uL 06/23/2023 22:30 ======== PSA: PROST. SPECIFIC AG.(PB-STL) 0.822 ng/mL 02/13/2023 12:19 Result: Acceptable Health maintenance: -Declines immunizations today. Immunization Series Date Facility Reaction Info COVID-19 ([facility]), MRNA, LNP-S, * 2 02/16/2021 [facility] <C> COVID-19 (P[facility]ZER), MRNA, LNP-S, * 1 01/26/2021 [facility] <C> INFLUENZA, SPLIT VIRUS, QUADRIVA* 01/05/2020 [facility] PNEUMOCOCCAL CONJUGATE PCV20, PO* 08/04/2022 [facility] PNEUMOCOCCAL POLYSACCHARIDE PPV23 07/27/2015 [facility] TDAP 07/04/2019 [facility] <C> TDAP 12/02/2009 [facility] <C> Colonoscopy: Patient denies family history of colon cancer. PSA: 0.822 ng/mL 02/13/2023. Reports family history of prostate cancer in his father. Eye exam: Evaluation and management per [facility] optometry. Labs ordered: CBC, CMP, A1C, Lipid panel, Vitamin D, TSH, Uric acid, B12 PSA, UA and Micral (fasting). ASSESSMENT/PLAN: DM 2: -Continue to check BG as recommended. -Continue medication regimen. -Reviewed lifestyle modifications. -Educated to check feet daily and to have an eye exam yearly. -Evaluation and management per [facility] endocrinology. Recommend patient schedule an appointment. -Evaluation and management per [facility] nurses educator. Recommend patient schedule an appointment. -Evaluation and management per private PCP for Semaglutide. HTN: -Increase Lisinopril to 60 mg daily. Proper use and side effects reviewed. -Instructed patient to check BP daily 1-2 hours after medications. -Discussed importance of regular exercise and/or physical activity in the control of blood pressure. -Discussed low sodium diet w/ <2 g daily. -Discussed avoidance of caffeine. -Discussed appropriate sleep hygiene and quality with >6 hours of uninterrupted sleep. -RTC placed for BP log with RNCM via phone for f/u. HLD: -Continue medication regimen. -Reviewed lifestyle modifications including participating in a low fat/low cholesterol diet. -Dietitian contact information given. Obesity: -Reviewed lifestyle modifications. -MOVE program and dietitian contact information given. ILSA: -Recommend using CPAP machine nightly. -Clean machine daily and replace filters q6m. -The patient has been advised that using CPAP regularly can decrease cardiac strain and help to control blood pressure. GERD: -Continue medication regimen. -Reviewed lifestyle modifications. -Educated to avoid triggering foods such as alcohol, caffeinated drinks, chocolate, coffee, spicy foods, citrus foods, tomatoes etc. Gout: -Recommend compliance to Allopurinol. -Educated to avoid alcohol, seafood and organ meats. Vitamin D Deficiency: -Continue medication regimen. -Reviewed foods high in vitamin D including: Milk, orange juice, yogurt, salmon, canned tuna fish, cod liver oil and cereals with vitamin D added. B12 Deficiency: -Continue medication regimen. Constipation: -Continue medication regimen. -Lifestyle modifications reviewed. Left knee pain/OA: -Continue medication regimen. -Whole health contact information given. -Evaluation and management per [facility] orthopedics. Recommend patient schedule an appointment. Depression/Anxiety/Insomnia: - crisis line and whole health contact information given. -Patient declines [facility] psychology consult. Headache: -Stable. -Reviewed potential headache triggers. Right hip pain: -Continue medication regimen. -Whole health contact information given. -Evaluation and management per [facility] PT. Recommend patient schedule an appointment. Hx CP: -Resolved. LBP: -Discontinue Methocarbamol. Begin Gabapentin 100 mg at TID PRN. Proper use and side effects reviewed. Patient to notify clinic if this needs to be increased to 300 mg TID PRN. -Whole health contact information given. -EMG ordered. -Lumbar x-ray ordered. -[facility] chiropractor consult placed. RETURN TO CLINIC: 6 months or earlier as needed via [facility]. SUMMARY STATEMENT: Plan of care has been discussed with including expected therapeutic benefits and potential side effects of prescribed medication and treatments. [place] verbalizes understanding and is in agreement with the plan of care. Patient was instructed to keep all scheduled appointments and contact proposal rep for any additional problems. Medication Reconciliation Opt STL: I have reviewed the patient's medication list (including active outpatient prescriptions dispensed from this [facility] (local) and dispensed from another [facility] or [facility] facility (remote) as well as inpatient orders (local pending and active), local clinic medications, locally documented non-VA medications, and local prescriptions that have or been discontinued in the past 90 days.) with the patient and/or his/her care-infant caregiver. Handwritten corrections, additions and/or deletions were made to the list, as appropriate. Corrected Outpatient Medication List was provided to the patient/caregiver. HTN Assess for Elevated BP>=140/90 - N,P,PH: Repeat blood pressure: 131/91 The patient was counseled on the importance of regular exercise and/or physical activity in the control of blood pressure. The patient was instructed to try to participate in 120 minutes of aerobic exercise per week if possible and that any increase in physical activity may be useful in controlling blood pressure. The patient was counseled on the importance of diet and weight loss/ control in the regulation of blood pressure. The patient was counseled to reduce their weight to within 10 percent of their ideal body weight. The possible improvement in blood pressure control with even 5 to 10 pounds of weight loss was reviewed. The contribution of dietary sodium to elevated blood pressure was reviewed. The patient was counseled to have a goal sodium intake of 1500mg per day, with no more than 2300mg per day. The patient was counseled that a diet low in dietary saturated and trans fats is beneficial in lowering blood pressure. The patient was counseled that a diet rich in fresh fruits, vegetables and whole grains is beneficial in lowering blood pressure. The patient was counseled to limit alcohol intake to no more than 2 drinks per day for men and 1 drink per day for women. /caroline/ Gaby Jacinto DNP, FORGE HELPER, SURFACER OPERATOR-C Primary Care Nurse Practitioner Signed: 09/19/2024 09:00 10/06/2024 ADDENDUM STATUS: COMPLETED Labs reviewed from 09/19/24: CBC, CMP, A1C, Lipid panel, Vitamin D, TSH, B12 PSA, UA and Micral (fasting). Will mail result letter to patient. #DM 2: -HGA1C 6.3 H % 09/19/2024. -HGA1C 7.5 H %08/03/2023. -Medications: SEMAGLUTIDE, Empagliflozin, METFORMIN, INSULIN,ASPART and INSULIN,GLARGINE-YFGN. -Continue medication regimen. #HLD: TRIGLYCERIDE 180 H mg/dL 09/19/2024 09:11 CHOLESTEROL 116 mg/dL 09/19/2024 09:11 HDL(New) 29 L mg/dL 09/19/2024 09:11 CALCULATED LDL 51 mg/dL 09/19/2024 09:11 -Medication: Atorvastatin. -Continue medication regimen. /caroline/ Gaby Jacinto DNP, PATRICIA, SURFACER OPERATOR-C Primary Care Nurse Practitioner Signed: 10/06/2024 16:33 10/14/2024 ADDENDUM STATUS: COMPLETED Will mail result letter to patient. RTC placed to discuss results and treatment. EMG conclusion 09/26/24: Abnormal study. The electrophysiological changes seen are suggestive of: This is most likely diabetic polyneuropathy with his known history and current symptoms. I am unable to assess small fiber neuropathy with this study. However, the above findings may be related the large fiber involvement. No evidence of nerve root irritation/radiculopathy with normal EMG findings today. /caroline/ Gaby Jacinto DNP, PATRICIA, SURFACER OPERATOR-C Primary Care Nurse Practitioner Signed: 10/14/2024 11:41 GABY JACINTO [facility]
--- OUTSIDE RECORDS SUMMARY | 2025-06-27 10:23 | XMS_ITS | Encounter Summary ---
Author Name [facility] [place] [facility] [place] Address [address] [place] [address] Care Team Providers Care Teaching Manager Name Role Phone HI CECY Primary Care Provider Unavailforrest mccoy Insurance Providers: All historical and current Section [...] FEP BASIC FAM April 03, 2010 [id number] [phone] FIORDALIZA DÍAZ PATIENT ANTHEM BCBS [place] FEP PREFERRED PROVIDER ORGANIZAT ION (PPO) FEP BASIC FAM April 03, 2010 112 [id number] [phone] FIORDALIZA DÍAZ PATIENT ANTHEM BCBS [place] FEP PREFERRED PROVIDER ORGANIZAT ION (PPO) FEP BASIC FAM April 03, 2010 112 [id number] [phone] FIORDALIZA DÍAZ PATIENT ANTHEM FEP PREFERRED PROVIDER ORGANIZAT ION (PPO) FEP BASIC FAMIL Y April 03, 2010 112 [id number] [phone] FIORDALIZA DÍAZ PATIENT ANTHEM FEP PREFERRED PROVIDER ORGANIZAT ION (PPO) FEP BASIC FAMIL Y April 03, 2010 112 [id number] [phone] FIORDALIZA DÍAZ PATIENT BC BS [place] FEP PREFERRED PROVIDER ORGANIZAT ION (PPO) FEP-B ASIC- PPO April 03, 2010 [id number] BOXFIORDALIZA PATIENT [place] FEP PREFERRED PROVIDER ORGANIZAT ION (PPO) FEP BASIC FAM April 03, 2010 112 [id number] [phone] BOXMARCON PATIENT CAREMARK ([id number]) PRESCRIPT ION FEP April 03, 2010 [id number] BOX,FIORDALIZA PATIENT CAREMARK ([id number]) PRESCRIPT ION FEP April 03, 2010 [id number] BOX,FIORDALIZA PATIENT [place] FEP ([id number]) PRESCRIPT ION FEPRX April 03, 2010 [id number] [phone] BOX,FIORDALIZA PATIENT [place] FEP ([id number]) PRESCRIPT ION FEPRX April 03, 2010 [id number] [phone] BOX,FIORDALIZA PATIENT [place] FEP [id number] PRESCRIPT ION FEP RX April 03, 2010 [id number] [phone] BOX,FIORDALIZA PATIENT [place] FEP [id number] PRESCRIPT ION FEP RX April 03, 2010 [id number] [phone] FIORDALIZA DÍAZ PATIENT Selected Encounter This section includes the information on record at [place] for the Encounter. Date/Time Encounter Type Encounter Description Reason Provider Source April 09, 2025 09:00 AM POS AIRWAY PRESSURE CPAP SLEEP MEDICINE ICD-10-CM G47.33 Obstructive sleep apnea (adult) (pediatric) PATY HOOVER MD E Encounter Template Text not used by [place] Assessments - Encounter Diagnoses This section includes the primary and secondary diagnoses documented for the Encounter. Date/Time Primary/Secondary Diagnosis Diagnosis Name Provider Source April 09, 2025 09:42 AM PRIMARY Obstructive sleep apnea (adult) (pediatric) KYA HUBBARD [facility] Plan of Treatment: Future Appointments (+ 6 months) and Future Tests (+/- 45 days) The Plan of Treatment section includes future care activities for the patient from all [place] treatmentfacilities. This section includes future appointments and future orders which are active, pending or scheduled. Future Appointments This section includes appointments that were scheduled to occur 6 months from the date of the Encounter, up to a maximum of 20 appointments. The data comes from all [facility]. Appointment Date/Time Appointment Type Appointme nt Facility Name May 21, 2025 03:30 PM AMBULATORY - MEDICINE [facility] May 28, 2025 09:00 AM AMBULATORY - NONE [facility] Jun 02, 2025 12:00 PM AMBULATORY - NONE [facility] Jun 22, 2025 07:15 AM AMBULATORY - MEDICINE [facility] Jun 25, 2025 01:00 PM AMBULATORY - NONE [facility] Jul 09, 2025 11:00 AM AMBULATORY - NONE [facility] Jul 30, 2025 01:30 PM AMBULATORY - NONE [facility] Oct 01, 2025 09:30 AM AMBULATORY - MEDICINE [facility] Active, Pending, and Scheduled Orders This section includes a listing of several types of active, pending, and scheduled orders, including clinic medications orders, diagnostic test orders, procedure orders and consult orders; where thestart date of the order is 45 days before the date of the Encounter or 45 days after the date of the Encounter. The data comes from all [facility]. Test Date/Time Test Type Test Details Facility Name March 26, 2025 10:50 AM Consult Order [facility]-SLEEP MANDIBULAR REPOSITIONING DEVICE STL Cons Child Welfare Caseworker's Choice [facility] Lab Results: +/- 30 days of the encounter This section includes the Chemistry and Hematology Lab Results on record with [place] for the patient. Radiology Reports and Pathology Reports are provided separately, in subsequent sections. Lab Results This section contains the Chemistry/Hematology Results that were resulted 30 days before or 30 daysafter the date of the Encounter. Date/Time Source Result Type Result - Unit Interpretation Reference Range Specimen Type Comment April 02, 2025 02:20 PM [facility] HGA1C BLOOD Specimen Type: BLOOD No comment entered. Ordering Provider: GABY GASPAR Report Released Date/Time: March 26, 2025 10:50 AM Reporting Lab: [address] [address] Performing Lab: [facility] [address] [facility] [address] HGA1C 6.9 H 4.0-6.0 April 02, 2025 02:20 PM [facility] CYSTATIN C EGFR PANELS (STL-PB-MA) PLASMA Spec imen Type: PLASMA Comment: Choice of which of the reported eGFR values to use depends on the clinical situation. For example, for patients with severe muscle wasting or reduced muscle mass, eGFR calculated using the 2012 cystatin equation may be preferred. Ordering Provider: GABY GASPAR Report Released Date/Time: March 26, 2025 10:50 AM Reporting Lab: [address] [address] Performing Lab: [address] [address] CYSTATIN C 1.15 mg/L 0.57-1.80 CKD-EPI CYSTATIN C (2011) 68.6 >60 CKD-EPI CREAT-CYSC (2020) 75.4 >60 CREATININE ([facility]) 1.13 mg/dL 0.7-1.3 Social History: Smoking Status (Most current) and Tobacco Use (All prior to encounter date) This section includes the most current, and the historical, smoking and tobacco- related health factors from the [place] facility where the Encounter took place. Current Smoking Status This section includes the most current smoking, or tobacco-related health factor, from the [place] facility where the Encounter took place. Date/Time Current Smoking Status Comment Vicenta juarez Apr 29, 2015 02:46 PM LIFETIME NON-USER OF TOBACCO [facility] Tobacco Use History This section includes a history of the smoking, or tobacco-related health factors, that were collected on or before the date of the Encounter. The data comes from the [place] facility where the Encounter took place. Date/Time Smoking Status/Tobacco Use Comment Cece logan Jun 29, 2014 02:52 PM LIFETIME NON-USER OF TOBACCO [facility] Jul 10, 2013 02:20 PM LIFETIME NON-USER OF TOBACCO [facility] May 24, 2009 08:42 AM LIFETIME NON-USER OF TOBACCO [facility] Encounter Notes: All associated encounter notes This section contains the clinical notes associated to the Encounter. Date/Time Encounter Note(s) Provider Source April 09, 2025 09:40 AM RESPIRATORY THERAP Y CONSULT: LOCAL TITLE: RESPIRATORY THERAPY CONSULT STL STANDARD TITLE: RESPIRATORY THERAPY CONSULT DATE OF NOTE: APRIL 09, 2025@09:40 ENTRY DATE: APRIL 09, 2025@09:41:03 AUTHOR: KYA HUBBARD COSIGNER: URGENCY: STATUS: COMPLETED EDUCATION WAS ALSO PROVIDED TO PATIENT. /geovanni HUBBARD LUBE WORKER REGISTERED RESPIRATORY THERAPIST Signed: 04/09/2025 09:43 KYA HUBBARD [facility] April 09, 2025 09:21 AM RESPIRATORY THERAP Y CONSULT: LOCAL TITLE: RESPIRATORY THERAPY CONSULT STL STANDARD TITLE: RESPIRATORY THERAPY CONSULT DATE OF NOTE: APRIL 09, 2025@09:21 ENTRY DATE: APRIL 09, 2025@09:21:58 AUTHOR: KYA HUBBARD COSIGNER: URGENCY: STATUS: COMPLETED PATIENT ARRIVED FOR APPT TODAY. NEW MACHINE AND SUPPLIES ORDERED THROUGH [employer]. SETTINGS [id number] CONTACT/REPLACEMENT INFO PROVIDED TO PATIENT WELL. /geovanni HUBBARD LUBE WORKER REGISTERED RESPIRATORY THERAPIST Signed: 04/09/2025 09:23 KYA HUBBARD [facility]
--- OUTSIDE RECORDS SUMMARY | 2025-06-27 10:24 | XMS_ITS | Encounter Summary ---
Author Name [facility] [place] [facility] [place] Address [address] [place] [address] Care Team Providers Care Campus Recruiter Name Role Phone PANFILO DOAH Primary Care Provider Unavailforrest e Insurance Providers: All historical and current [...] FEP BASIC FAM April 03, 2010 [id number] [phone] FIORDALIZA DÍAZ PATIENT AN[place] FEP PREFERRED PROVIDER ORGANIZAT ION (PPO) FEP BASIC FAM April 03, 2010 112 [id number] [phone] FIORDALIZA DÍAZ PATIENT AN[place] FEP PREFERRED PROVIDER ORGANIZAT ION (PPO) FEP BASIC FAM April 03, 2010 112 [id number] [phone] FIORDALIZA DÍAZ PATIENT ANTHEM FEP PREFERRED PROVIDER ORGANIZAT ION (PPO) FEP BASIC FAMIL Y April 03, 2010 [id number] FIORDALIZA DÍAZ PATIENT ANTHEM FEP PREFERRED PROVIDER ORGANIZAT ION (PPO) FEP BASIC FAMIL Y April 03, 2010 112 [id number] [phone] FIORDALIZA DÍAZ PATIENT BC BS [place] FEP PREFERRED PROVIDER ORGANIZAT ION (PPO) FEP-B ASIC- PPO April 03, 2010 [id number] FIORDALIZA DÍAZ PATIENT BC[place] FEP PREFERRED PROVIDER ORGANIZAT ION (PPO) FEP BASIC FAM April 03, 2010 112 [id number] [phone] BOXMARCON PATIENT CAREMARK ([id number]) PRESCRIPT ION FEP April 03, 2010 [id number] BOX,FIORDALIZA PATIENT CAREMARK ([id number]) PRESCRIPT ION FEP April 03, 2010 [id number] BOX,FIORDALIZA PATIENT [place] FEP ([id number]) PRESCRIPT ION FEPRX April 03, 2010 [id number] [phone] BOX,FIORDALIZA PATIENT [place] FEP ([id number]) PRESCRIPT ION FEPRX April 03, 2010 [id number] [phone] BOX,FIORDALIZA PATIENT [place] FEP [id number] PRESCRIPT ION FEP RX April 03, 2010 [id number] BOX,FIORDALIZA PATIENT [place] FEP [id number] PRESCRIPT ION FEP RX April 03, 2010 [id number] [phone] FIORDALIZA DÍAZ PATIENT Selected Encounter This section includes the information on record at [place] for the Encounter. Date/Time Encounter Type Encounter Description Reason Pro vider Source Jan 08, 2025 02:58 PM Outpatient Encounter COMMUNITY CARE CONSULT IHE Encounter Template Text not used by [place] Plan of Treatment: Future Appointments (+ 6 months) and Future Tests (+/- 45 days) The Plan of Treatment section includes future care activities for the patient from all [place] treatmentfacilities. This section includes future appointments and future orders which are active, pending or scheduled. Future Appointments This section includes appointments that were scheduled to occur 6 months from the date of the Encounter, up to a maximum of 20 appointments. The data comes from all [place] treatment facilities. Appointment Date/Time Appointment Type Appointme nt Facility Name March 26, 2025 09:30 AM AMBULATORY - MEDICINE [facility] March 27, 2025 08:30 AM AMBULATORY - NONE [facility] April 02, 2025 01:00 PM AMBULATORY - NONE . [facility] April 09, 2025 09:00 AM AMBULATORY - MEDICINE [facility] May 21, 2025 03:30 PM AMBULATORY - MEDICINE [facility] May 28, 2025 09:00 AM AMBULATORY - NONE . [facility] Jun 02, 2025 12:00 PM AMBULATORY - NONE . [facility] Jun 22, 2025 07:15 AM AMBULATORY - MEDICINE . [facility] Jun 25, 2025 01:00 PM AMBULATORY - NONE [facility] Social History: Smoking Status (Most current) and Tobacco Use (All prior to encounter date) This section includes the most current, and the historical, smoking and tobacco- related health factors from the [place] facility where the Encounter took place. Current Smoking Status This section includes the most current smoking, or tobacco-related health factor, from the [place] facility where the Encounter took place. Date/Time Current Smoking Status Comment Vicenta juarez Apr 29, 2015 02:46 PM LIFETIME NON-USER OF TOBACCO [facility] Tobacco Use History This section includes a history of the smoking, or tobacco-related health factors, that were collected on or before the date of the Encounter. The data comes from the [place] facility where the Encounter took place. Date/Time Smoking Status/Tobacco Use Comment Cece logan Jun 29, 2014 02:52 PM LIFETIME NON-USER OF TOBACCO [facility] Jul 10, 2013 02:20 PM LIFETIME NON-USER OF TOBACCO [facility] May 24, 2009 08:42 AM LIFETIME NON-USER OF TOBACCO [facility] Encounter Notes: All associated encounter notes This section contains the clinical notes associated to the Encounter. Date/Time Encounter Note(s) Provider Source Jan 09, 2025 01:23 PM ADDENDUM: LOCAL TITLE: Addendum STANDARD TITLE: ADDENDUM DATE OF NOTE: JAN 09, 2025@13:23:27 ENTRY DATE: JAN 09, 2025@13:23:28 AUTHOR: KURT CROWLEY EXP COSIGNER: URGENCY: STATUS: COMPLETED Please call to schedule . RTC has been placed. 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: 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.9 Date [place] received request: Dec Date service required: Jan Requesting [facility] Provider Information: Patel Goldsmith [address] [place] [address] Specialty: Dentist - Camera Supervisor Network: [facility] Region 2 /caroline/ ERICKSON GARDUNO ADVANCED PROTECTIVE SIGNAL OPERATIONS SUPERVISOR Signed: 01/08/2025 15:00 Receipt Acknowledged By: * AWAITING SIGNATURE * KURT CROWLEY 01/09/2025 11:52 /caroline/ KYA SMITH [facility] RN 01/09/2025 ADDENDUM STATUS: COMPLETED Additional services requested: D6057 Custom fabricated abut-includes placemnt #3 D6058 Abutment supported porcelain/ceramic crown blocker #3 /caroline/ ERICKSON GARDUNO ADVANCED PROTECTIVE SIGNAL OPERATIONS SUPERVISOR Signed: 01/09/2025 12:50 Receipt Acknowledged By: 01/09/2025 13:20 /caroline/ KURT CROWLEY DENTIST * AWAITING SIGNATURE * KYA SMITH 01/09/2025 ADDENDUM STATUS: COMPLETED STL DENTAL SERVICE/COMMUNITY CARE RFS DETERMINATION The requested treatment: DENIED. 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 (provide any remarks/instructions to Community Care team or community provider) /geovanni CROWLEY DENTIST Signed: 01/09/2025 13:21 Receipt Acknowledged By: * AWAITING SIGNATURE * KYA SMITH [facility] Jan 09, 2025 01:20 PM ADDENDUM: LOCAL TITLE: Addendum STANDARD TITLE: ADDENDUM DATE OF NOTE: JAN 09, 2025@13:20:20 ENTRY DATE: JAN 09, 2025@13:20:21 AUTHOR: KURT CROWLEY COSIGNER: URGENCY: STATUS: COMPLETED ST DENTAL SERVICE/COMMUNITY CARE RFS DETERMINATION The requested treatment: DENIED. 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 (provide any remarks/instructions to Community Care team or community provider) /geovanni CROWLEY DENTIST Signed: 01/09/2025 13:21 Receipt Acknowledged By: 01/10/2025 09:39 /geovanni SMITH [facility] RN --- Original Document --- 01/08/25 COMMUNITY CARE-REQUEST FOR SERVICE NOTE STL: Request for Services (RFS) documentation has been sent for scanning to [facility] 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 Dx code: K02.9 Date VA received request: Dec Date service required: Jan Requesting [facility] Provider Information: Patel Goldsmith [address] [facility] [place] [address] Specialty: Dentist - Camera Supervisor Network: [facility] Region 2 /geovanni GARDUNO ADVANCED PROTECTIVE SIGNAL OPERATIONS SUPERVISOR Signed: 01/08/2025 15:00 Receipt Acknowledged By: 01/09/2025 15:07 /geovanni CROWLEY DENTIST 01/09/2025 11:52 /geovanni SMITH [facility] RN 01/09/2025 ADDENDUM STATUS: COMPLETED Additional services requested: D6057 Custom fabricated abut-includes placemnt #3 D6058 Abutment supported porcelain/ceramic crown blocker #3 /caroline/ ERICKSON GARDUNO ADVANCED PROTECTIVE SIGNAL OPERATIONS SUPERVISOR Signed: 01/09/2025 12:50 Receipt Acknowledged By: 01/09/2025 13:20 /geovanni CROWLEY DENTIST 01/10/2025 09:39 /geovanni SMITH [facility] [place] 01/09/2025 ADDENDUM STATUS: COMPLETED Please call to schedule . RTC has been placed. /caroline/ KURT CROWLEY DENTIST Signed: 01/09/2025 13:24 Receipt Acknowledged By: 01/09/2025 14:10 /es/ DIAMOND DE OLIVEIRA Advance Medical Auditor 01/09/2025 14:54 /es/ KURT ROBERTS MSA [facility] Jan 09, 2025 12:49 PM ADDENDUM: LOCAL TITLE: Addendum STANDARD TITLE: ADDENDUM DATE OF NOTE: JAN 09, 2025@12:49:18 ENTRY DATE: JAN 09, 2025@12:49:19 AUTHOR: ERICKSON GARDUNO COSIGNER: URGENCY: STATUS: COMPLETED Additional services requested: D6057 Custom fabricated abut-includes placemnt #3 D6058 Abutment supported porcelain/ceramic crown blocker #3 /caroline/ ERICKSON GARDUNO ADVANCED PROTECTIVE SIGNAL OPERATIONS SUPERVISOR Signed: 01/09/2025 12:50 Receipt Acknowledged By: 01/09/2025 13:20 /es/ KURT CROWLEY DENTIST 01/10/2025 09:39 /es/ KYA SMITH [facility] RN --- Original Document --- 01/08/25 COMMUNITY CARE-REQUEST FOR SERVICE NOTE STL: Request for Services (RFS) documentation has been sent for scanning [email or web address] Consult: COMMUNITY CARE-GEN Consult No: [id number] Date sent to scanning: Dec A Request for Service (RFS) form [id number] has been received which includes the following: Care Requested: 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 Dx code: K02.9 Date VA received request: Dec Date service required: Jan Requesting Community Provider Information: Patel Goldsmith [address] [place] [place] [address] Specialty: Dentist - Camera Supervisor Network: [facility] Region 2 /caroline/ ERICKSON GARDUNO ADVANCED PROTECTIVE SIGNAL OPERATIONS SUPERVISOR Signed: 01/08/2025 15:00 Receipt Acknowledged By: 01/09/2025 15:07 /geovanni CROWLEY DENTIST 01/09/2025 11:52 /caroline/ KYA SMITH [facility] RN 01/09/2025 ADDENDUM STATUS: COMPLETED STL DENTAL SERVICE/COMMUNITY CARE RFS DETERMINATION The requested treatment: DENIED. 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 (provide any remarks/instructions to Community Care team or community provider) /caroline/ KURT CROWLEY DENTIST Signed: 01/09/2025 13:21 Receipt Acknowledged By: * AWAITING SIGNATURE * KYA SMITH 01/09/2025 ADDENDUM STATUS: COMPLETED Please call to schedule . RTC has been placed. /geovanni CROWLEY DENTIST Signed: 01/09/2025 13:24 Receipt Acknowledged By: 01/09/2025 14:10 /caroline/ DIAMOND DE OLIVEIRA Advance Medical Auditor 01/09/2025 14:54 /caroline/ ERICKSON SALAZAR MSA [facility] Jan 08, 2025 02:58 PM NONVA NOTE: LOCAL TITLE: COMMUNITY CARE-REQUEST FOR SERVICE NOTE [facility] STANDARD TITLE: NONVA NOTE DATE OF NOTE: JAN 08, 2025@14:58 ENTRY DATE: JAN 08, 2025@14:58:46 AUTHOR: ERICKSON GARDUNO COSIGNER: URGENCY: STATUS: COMPLETED COMMUNITY CARE-REQUEST FOR SERVICE NOTE STL Has ADDENDA Request for Services (RFS) documentation has been sent for scanning to [employer] Community Care Consult: COMMUNITY CARE-GEN Consult No: [id number] Date sent to scanning: Dec A Request for Service (RFS) form [id number] has been received which includes the following: Care Requested: 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 Dx code: K02.9 Date VA received request: Dec Date service required: Jan Requesting Community Provider Information: Patel Goldsmith[address] [place] [phone] Specialty: Dentist - Camera Supervisor Network: [place] [phone] /caroline/ ERICKSON GARDUNO ADVANCED PROTECTIVE SIGNAL OPERATIONS SUPERVISOR Signed: 01/08/2025 15:00 Receipt Acknowledged By: 01/09/2025 15:07 /caroline/ KURT CROWLEY DENTIST 01/09/2025 11:52 /caroline/ KYA SMITH [facility] RN 01/09/2025 ADDENDUM STATUS: COMPLETED Additional services requested: D6057 Custom fabricated abut-includes placemnt #3 D6058 Abutment supported porcelain/ceramic crown blocker #3 /caroline/ ERICKSON GARDUNO ADVANCED PROTECTIVE SIGNAL OPERATIONS SUPERVISOR Signed: 01/09/2025 12:50 Receipt Acknowledged By: 01/09/2025 13:20 /caroline/ KURT CROWLEY DENTIST * AWAITING SIGNATURE * KYA SMITH 01/09/2025 ADDENDUM STATUS: COMPLETED ST[facility] DENTAL SERVICE/COMMUNITY CARE RFS DETERMINATION The requested treatment: DENIED. 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 (provide any remarks/instructions to Community Care team or community provider) /es/ KURT CROWLEY DENTIST Signed: 01/09/2025 13:21 Receipt Acknowledged By: * AWAITING SIGNATURE * LUISKYA Moore 01/09/2025 ADDENDUM STATUS: COMPLETED Please call to schedule . RTC has been placed. /caroline/ KURT CROWLEY DENTIST Signed: 01/09/2025 13:24 Receipt Acknowledged By: 01/09/2025 14:10 /es/ DIAMOND DE OLIVEIRA Advance Medical Auditor 01/09/2025 14:54 /es/ ERICKSON SALAZAR [facility]
--- OUTSIDE RECORDS SUMMARY | 2025-06-27 10:24 | XMS_ITS ---
Author Name [facility] [place] [facility] [place] [facility] [facility] [place] Address [address] [place] [address] Care Team Providers Care Rigger Apprentice Name Role Phone CECY ALVAREZ Primary Care Provider Unavailabl e Insurance Providers: [...] FEP BASIC FAM April 03, 2010 [id number] [phone] FIORDALIZA GROVER PATIENT ANTHEM [place] FEP PREFERRED PROVIDER ORGANIZAT ION (PPO) FEP BASIC FAM April 03, 2010 112 [id number] [phone] FIORDALIZA GROVER PATIENT ANTHE[place] FEP PREFERRED PROVIDER ORGANIZAT ION (PPO) FEP BASIC FAM April 03, 2010 112 [id number] [phone] FIORDALIZA GROVER PATIENT ANTHEM FEP PREFERRED PROVIDER ORGANIZAT ION (PPO) FEP BASIC FAMIL Y April 03, 2010 112 [id number] [phone] FIORDALIZA GROVER PATIENT ANTHEM FEP PREFERRED PROVIDER ORGANIZAT ION (PPO) FEP BASIC FAMIL Y April 03, 2010 112 [id number] [phone] FIORDALIZA GROVER PATIENT [place] BS [place] FEP PREFERRED PROVIDER ORGANIZAT ION (PPO) FEP-B ASIC- PPO April 03, 2010 [id number] BOX,FIORDALIZA PATIENT [place] FEP PREFERRED PROVIDER ORGANIZAT ION (PPO) FEP BASIC FAM April 03, 2010 112 [id number] [phone] BOX,FIORDALIZA PATIENT [place] ([id number]) PRESCRIPT ION FEP April 03, 2010 [id number] BOX,FIORDALIZA PATIENT [place] ([id number]) PRESCRIPT ION FEP April 03, 2010 [id number] BOX,FIORDALIZA PATIENT [place] FEP ([id number]) PRESCRIPT ION FEPRX April 03, 2010 [id number] [phone] BOX,FIORDALIZA PATIENT [place] FEP ([id number]) PRESCRIPT ION FEPRX April 03, 2010 [id number] [phone] BOX,FIORDALIZA PATIENT [place] FEP [id number] PRESCRIPT ION FEP RX April 03, 2010 [id number] [phone] BOX,FIORDALIZA PATIENT [place] FEP [id number] PRESCRIPT ION FEP RX April 03, 2010 [id number] [phone] FIORDALIZA GROVER PATIENT Selected Encounter This section includes the information on record at [place] for the Encounter. Date/Time Encounter Type Encounter Description Reason Provider Source March 26, 2025 09:30 AM OFFICE O/P EST MOD 30 MIN PRIMARY CARE/MEDICINE ICD-10-CM E11.9 Type 2 diabetes mellitus without complications CECY ALVAREZ Monique Encounter Template Text not used by [place] Assessments - Encounter Diagnoses This section includes the primary and secondary diagnoses documented for the Encounter. Date/Time Primary/Secondary Diagnosis Diagnosis Name Provider Source April 09, 2025 09:18 AM PRIMARY Type 2 diabetes mellitus without complications CECY ALVAREZ [facility] April 09, 2025 09:18 AM SECONDARY Anxiety disorder, unspecified CECY ALVAREZ [facility] April 09, 2025 09:18 AM SECONDARY Constipation, unspecified CECY ALVAREZ [facility] April 09, 2025 09:18 AM SECONDARY Depression, unspecified CECY ALVAREZ [facility] April 09, 2025 09:18 AM SECONDARY Essential (primary) hypertension CECY ALVAREZ [facility] April 09, 2025 09:18 AM SECONDARY Gastro-esophageal reflux disease without esophagitis CECY ALVAREZ [facility] April 09, 2025 09:18 AM SECONDARY Gout, unspecified CECY ALVAREZ [facility] April 09, 2025 09:18 AM SECONDARY Headache, unspecified CECY ALVAREZ [facility] April 09, 2025 09:18 AM SECONDARY Hyperlipidemia, unspecified CECY ALVAREZ [facility] April 09, 2025 09:18 AM SECONDARY Insomnia, unspecified CECY ALVARZE [facility] April 09, 2025 09:18 AM SECONDARY Low back pain, unspecified CECY ALVAREZ [facility] April 09, 2025 09:18 AM SECONDARY Obesity, unspecified CECY ALVAREZ [facility] April 09, 2025 09:18 AM SECONDARY Obstructive sleep apnea (adult) (pediatric) CECY ALVAREZ [facility] April 09, 2025 09:18 AM SECONDARY Other constipation CECY ALVAREZ [facility] April 09, 2025 09:18 AM SECONDARY Other fatigue CECY ALVAREZ [facility] April 09, 2025 09:18 AM SECONDARY Pain in left knee CECY ALVAREZ [facility] April 09, 2025 09:18 AM SECONDARY Pain in right hip CECY ALVAREZ [facility] April 09, 2025 09:18 AM SECONDARY Polyneuropathy, unspecified CECY ALVAERZ [facility] April 09, 2025 09:18 AM SECONDARY Type 2 diabetes mellitus with diabetic polyneuropathy CECY ALVAREZ [facility] April 09, 2025 09:18 AM SECONDARY Unilateral primary osteoarthritis, left knee CECY ALVAREZ [facility] April 09, 2025 09:18 AM SECONDARY Vitamin B12 deficiency anemia, unspecified CECY ALVAREZ [facility] April 09, 2025 09:18 AM SECONDARY Vitamin D deficiency, unspecified CECY ALVAREZ [facility] Plan of Treatment: Future Appointments (+ 6 months) and Future Tests (+/- 45 days) The Plan of Treatment section includes future care activities for the patient from [facility] [place] [facility]. This section includes future appointments and future orders which are active, pending or scheduled. Future Appointments This section includes appointments that were scheduled to occur 6 months from the date of the Encounter, up to a maximum of 20 appointments. The data comes from all [place] treatment [facility]. Appointment Date/Time Appointment Type Appointme nt Facility Name March 27, 2025 08:30 AM AMBULATORY - NONE . MAGY Olivarez [facility] April 02, 2025 01:00 PM AMBULATORY - NONE [facility] April 09, 2025 09:00 AM AMBULATORY - MEDICINE [facility] May 21, 2025 03:30 PM AMBULATORY - MEDICINE [facility] May 28, 2025 09:00 AM AMBULATORY - NONE [facility] Jun 02, 2025 12:00 PM AMBULATORY - NONE [facility] Jun 22, 2025 07:15 AM AMBULATORY - MEDICINE [facility] Jun 25, 2025 01:00 PM AMBULATORY - NONE [facility] Jul 09, 2025 11:00 AM AMBULATORY - NONE [facility] Jul 30, 2025 01:30 PM AMBULATORY - NONE [facility] Active, Pending, and Scheduled Orders This section includes a listing of several types of active, pending, and scheduled orders, including clinic medications orders, diagnostic test orders, procedure orders and consult orders; where the start date of the order is 45 days before the date of the Encounter or 45 days after the date of theEncounter. The data comes from all [facility]. Test Date/Time Test Type Test Details Facility Name March 26, 2025 10:50 AM Consult Order [facility]-SLEEP MANDIBULAR REPOSITIONING DEVICE STL Cons Manager Cardiology's Choice [facility] Lab Results: +/- 30 days of the encounter This section includes the Chemistry and Hematology Lab Results on record with [place] for the patient. Radiology Reports and Pathology Reports are provided separately, in subsequent sections. Lab Results This section contains the Chemistry/Hematology Results that were resulted 30 days before or 30 daysafter the date of the Encounter. Date/Time Source Result Type Result - Unit Interpretation Reference Range Specimen Type Comment April 02, 2025 02:20 PM [facility] HGA1C BLOOD Specimen Type: BLOOD No comment entered. Ordering Provider: GABY GASPAR Report Released Date/Time: March 26, 2025 10:50 AM Reporting Lab: [address] [id number] Performing Lab: [address] [id number] HGA1C 6.9 H 4.0-6.0 April 02, 2025 02:20 PM [facility] CYSTATIN C EGFR PANELS (STL-PB-MA) PLASMA Spec imen Type: PLASMA Comment: Choice of which of the reported eGFR values to use depends on the clinical situation. For example, for patients with severe muscle wasting or reduced muscle mass, eGFR calculated using the 2012 cystatin equation may be preferred. Ordering Provider: GABY GASPAR Report Released Date/Time: March 26, 2025 10:50 AM Reporting Lab: [facility] [address] [place] [id number] Performing Lab: [address] [address] CYSTATIN C 1.15 mg/L 0.57-1.80 CKD-EPI CYSTATIN C (2011) 68.6 >60 CKD-EPI CREAT-CYSC (2020) 75.4 >60 CREATININE ([facility]) 1.13 mg/dL 0.7-1.3 Vital Signs: All taken on the encounter date This section contains inpatient and outpatient Vital Signs collected on the date of the Encounter. Date/Time Temperature Pulse Blood Pressure Respiratory Rate SP02 Pain Height Weight Body Mass Index Source March 26, 2025 10:20 AM 142/88 [facility] March 26, 2025 09:33 AM 98 90 161/116 16 97 72 299.4 41 [facility] Encounter Notes: All associated encounter notes This section contains the clinical notes associated to the Encounter. Date/Time Encounter Note(s) Provider Source April 03, 2025 09:21 AM PHYSICIAN LETTERS: LOCAL TITLE: TEST RESULT GENERAL LETTER STL STANDARD TITLE: PHYSICIAN LETTERS DATE OF NOTE: APRIL 03, 2025@09:21 ENTRY DATE: APRIL 03, 2025@09:21:27 AUTHOR: GABY GASPAR EXP COSIGNER: URGENCY: STATUS: COMPLETED [facility] [address] [place] [address] APRIL 03, 2025 FIORDALIZA GROVER [address] [place] [address] [place], [place] [address] Dear Fiordaliza Grover, I would like to update you on your recent test results. HEMOGLOBIN A1C - Gives us information about your diabetes (sugar or glucose) control over the past 3 months. Your target is to keep your A1C below 0 %. HGA1C 6.9 H % 04/02/2025 14:20 The results are similar to previous values and not a clinical concern. You have diabetes. Continue follow-up with endocrinology and clinical pharmacy FUTURE APPOINTMENTS: 04/09/2025 09:00 PONCE-CPAP RESP TX 04/16/2025 13:00 PONCE-DENTAL DMD3 PROC 05/21/2025 15:30 [facility]-PACT PHONE STRING STUDIES DIRECTOR RESIDENT 07/09/2025 10:00 PONCE-ST CLR VVC PACT NUTR 10/01/2025 09:30 MARILY-PACT E STRING STUDIES DIRECTOR RESIDENT 1 Sincerely, GABY GASPAR, DNP, NUCLEAR ENGINEERING TECHNICIAN-C, PROCESS TECHNICIAN NURSE PRACTITIONER RESIDENT BOX,GABY LAMAS [facility] March 26, 2025 10:36 AM ACCOUNTING OF DISC LOSURES NOTE: LOCAL TITLE: STATE PRESCRIPTION DRUG MONITORING PROGRAM STANDARD TITLE: ACCOUNTING OF DISCLOSURES NOTE DATE OF NOTE: MARCH 26, 2025@10:36:07 ENTRY DATE: MARCH 26, 2025@10:36:07 AUTHOR: CECY ALVAREZ EXP COSIGNER: URGENCY: STATUS: COMPLETED This PDMP query was submitted by Cecy Alvarez STRING STUDIES DIRECTOR. The clinical justification for this PDMP query is to review controlled substances prescribed outside of the [facility], and any additional information that may become available, as an important component of standard clinical care, and in accordance with [facility] policy. Patient information was shared with the PDMP [place]. No prescription(s) for controlled substances outside the [facility] were found in the last 90 days. /caroline/ Cecy Malin. BOBO Alvarez- NURSE PRACTITIONER Signed: 03/26/2025 10:36 CECY ALVAREZ [facility] March 26, 2025 09:51 AM PRIMARY CARE NOTE: LOCAL TITLE: PRIMARY CARE PROVIDER ESTABLISHED VISIT ST STANDARD TITLE: PRIMARY CARE NOTE DATE OF NOTE: MARCH 26, 2025@09:51 ENTRY DATE: MARCH 26, 2025@09:51:43 AUTHOR: GABY GASPAR EXP COSIGNER: CECY ALVAREZ URGENCY: STATUS: COMPLETED PRIMARY CARE PROVIDER ESTABLISHED VISIT ST Has ADDENDA ESTABLISHED PATIENT [id number]: REASON FOR VISIT/CHIEF COMPLAINT: Regularly scheduled PCP follow up HPI: 44 y/o AAM in the office for care and management of chronic conditions Hosp/sx/ED/UC visits: No Current concerns: Pt endorses strength/muscle loss to left side for over a year. Pt didn't think anything of it, pt states it was noted by neurology during EMG, which showed polyneuropathy. Pt denies gait issues, inability to use the affected side, just slight weakness. Pt noting pins and needles, associated w/ his neuropathy. 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 DM 2 HGA1C 6.3 H % 09/19/2024 09:11 HGA1C 7.5 H % 08/03/2023 08:24 HGA1C 9.8 H % 02/13/2023 12:19 HGA1C 7.7 H % 08/17/2022 10:24 HGA1C 7.9 H % 03/01/2022 13:57 -Taking sliding scale Aspart, 45 units Lantus, Empaglaflozin, and 1mg Ozempic weekly (prvt PCP) --Pt states pharmacy just sends him the meds and has talked to a pharmacist in the past, but unsure of the name -Stopped Metformin 1-1.5 yrs ago, after starting Ozempic -Weight has been fluctuating, lost 60lbs but gained 10lbs back 2. HTN -Taking Lisinopril -Avg 140/90 3. HLD TRIGLYCERIDE 180 H mg/dL 09/19/2024 09:11 CHOLESTEROL 116 mg/dL 09/19/2024 09:11 HDL(New) 29 L mg/dL 09/19/2024 09:11 CALCULATED LDL 51 mg/dL 09/19/2024 09:11 -Taking Atorvastatin -Watches diet as much as possible -Difficult to exercise due to nerve pain 4. Obesity -LSM currently --Watches diet as much as possible --Difficult to exercise due to nerve pain -Taking Ozempic weekly -Weight has been fluctuating, lost 60lbs but gained 10lbs back 5. ILSA -Has CPAP, but doesn't use it d/t too much pressure -Pt endorses near constant fatigue 6. GERD -Taking Omeprazole -Avoiding triggering foods such as alcohol, caffeinated drinks, chocolate, coffee, spicy foods, citrus foods, tomatoes, etc. 7. Gout -Denies any episodes -Hasn't taken Allopurinol in 5 months -Avoiding alcohol, seafood, pork, and organ meats 8. Vitamin D Deficiency VITAMIN D, 25-HYDROXY 33.3 ng/mL 09/19/2024 09:11 VITAMIN D, 25-HYDROXY 22.7 L ng/mL 08/03/2023 08:24 VITAMIN D, 25-HYDROXY 15.7 L ng/mL 02/13/2023 12:19 -Taking Cholecalciferol 9. B12 Deficiency B12 214 pg/mL 09/19/2024 09:11 -Taking Cyanocobalmin 10. Constipation -LSM currently, seems to help 11. Left knee pain/OA -Swollen at times, told he needs a knee replacement -Taking Gabapentin, OTC Tylenol, and Diclofenac -F/B [facility] 12. Depression/Anxiety/Insomnia -Denies SI/HI -Dealing w/ pain is difficult, but he presses on -Declines [facility] historically, state he tried it in the past and it was unhelpful 13. Headache -Taking OTC Tylenol, Aleve, excedrin -Made better w/ sleep 14. Right hip pain -Taking Gabapentin, OTC Tylenol, and Diclofenac -F/B [facility], previously saw PT -Does stretches prescribed by Pt, helps sometimes 15. Hx CP -Resolved 16. LBP -Taking Gabapentin -EMG ordered --Probable polyneuropathy --No evidence of nerve root irritation/radiculopathy with normal EMG findings -Lumbar x-ray ordered at last visit, never obtained -[place] chiropractor, saw Dec 2024 --No longer seeing SOURCE(S) OF HISTORY: Patient [place] records reviewed and summarized PAST MEDICAL HISTORY: 1) Benign essential hypertension (SNOMED CT 4864397) 2) Sleep apnea (SNOMED CT 90341702) 3) Osteoarthritis of knee (SNOMED CT 899830264) 4) Diabetes mellitus type 2 5) Insomnia 6) Gout 7) Constipation 8) Hyperlipidemia 9) Gastroesophageal reflux disease 10) Obesity 11) Vitamin D deficiency 12) Decreased vitamin B12 level 13) Constipation 14) Pain of left knee region 15) Depression 16) Anxiety 17) Headache 18) Pain in right hip joint 19) Low back pain 20) Polyneuropathy due to diabetes mellitus FAMILY HISTORY: SOCIAL HISTORY: NICOTINE: No data available ETOH: ILLICIT DRUGS: 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 Handwritten corrections, additions and/or deletions were made to the list. Corrected Outpatient Medication List was provided to the patient/caregiver. Active Outpatient Medications (including Supplies): Active Outpatient Medications Status 1) CHOLECALCIF 50MCG (D3-2,000UNIT) TAB TAKE TWO TABLETS BY ACTIVE MOUTH ONCE A DAY Indication: FOR VITAMIN D DEFICIENCY 2) GABAPENTIN 100MG CAP TAKE ONE CAPSULE BY MOUTH THREE TIMES A ACTIVE DAY Indication: FOR NERVE PAIN 3) INSULIN SYRINGE 0.5ML 30G 12MM USE 1 SYRINGE UNDER THE SKIN ACTIVE ONCE A DAY TO USE WITH INSULIN Indication: FOR DIABETES 4) INSULIN,GLARGINE,HUMAN 100 UNIT/ML INJ INJECT 42 UNITS UNDER ACTIVE THE SKIN ONCE A DAY TO CONTROL BLOOD SUGAR. ADMINISTER AT SAME TIME EACH DAY DIRECTED. DISCARD ANY VIAL 28 DAYS AFTER OPENING. Indication: FOR DIABETES 5) LISINOPRIL 40MG TAB TAKE ONE AND ONE-HALF TABLETS BY MOUTH ACTIVE ONCE A DAY FOR HEART OR BLOOD PRESSURE Indication: FOR HIGH BLOOD PRESSURE 6) NEEDLE,PEN 31G,5MM USE 1 NEEDLE UNDER THE SKIN FOUR TIMES A ACTIVE DAY 7) OMEPRAZOLE 40MG EC CAP TAKE ONE CAPSULE BY MOUTH EVERY ACTIVE MORNING BEFORE A MEAL TO LOWER STOMACH ACID. TAKE 30 MINUTES PRIOR TO FOOD. 8) SODIUM FLUORIDE 1.1% TOOTHPASTE USE DIRECTED BY MOUTH ACTIVE TWICE A DAY TOOTHPASTE (DO NOT SWALLOW) APPLY A PEA-SIZED AMOUNT OF THE PASTE TO A TOOTHBRUSH AND BRUSH THOROUGHLY FOR TWO MINUTES, AT MORNING AND AT NIGHT; SPIT, DO NOT RINSE. DO NOT EAT, DRINK, OR RINSE FOR 30 MINUTES AFTER USE. Indication: FOR DENTAL CARIES Active Non-VA Medications Status 1) Non-VA ACETAMINOPHEN TAB BY MOUTH ACTIVE 2) Non-VA SEMAGLUTIDE 0.25MG/0.375ML INJ PEN 3ML 0.5MG UNDER ACTIVE THE SKIN EVERY WEEK 10 Total Medications DATA REVIEW: HGA1C 6.3 H % 09/19/2024 09:11 Lipid Panel: TRIGLYCERIDE 180 H mg/dL 09/19/2024 09:11 CHOLESTEROL 116 mg/dL 09/19/2024 09:11 HDL(New) 29 L mg/dL 09/19/2024 09:11 CALCULATED LDL 51 mg/dL 09/19/2024 09:11 CMP: SODIUM 138 mEq/L 09/19/2024 09:11 POTASSIUM 4.1 mEq/L 09/19/2024 09:11 CHLORIDE 104 mEq/L 09/19/2024 09:11 UREA NITROGEN 15.0 mg/dL 09/19/2024 09:11 CREATININE 1.06 mg/dL 09/19/2024 09:11 CALCIUM 9.1 mg/dL 09/19/2024 09:11 PROTEIN 7.8 g/dL 09/19/2024 09:11 ALBUMIN 4.2 g/dL 09/19/2024 09:11 ALKALINE PHOSPHATASE 82 U/L 09/19/2024 09:11 ALT/SGPT 24 U/L 09/19/2024 09:11 AST/SGOT 20 U/L 09/19/2024 09:11 TOTAL BILIRUBIN 0.9 mg/dL 09/19/2024 09:11 CARBON DIOXIDE 23 mEq/L 09/19/2024 09:11 GLUCOSE 126 H mg/dL 09/19/2024 09:11 EGFR (CKD-EPI 2020) 88.8 09/19/2024 09:11 CBC: WBC 5.3 10*3/uL 09/19/2024 09:11 RBC 5.55 10*6/uL 09/19/2024 09:11 HGB 15.8 g/dL 09/19/2024 09:11 HCT 47.9 % 09/19/2024 09:11 MCV 86.3 fL 09/19/2024 09:11 MCH 28.5 pg 09/19/2024 09:11 MCHC 33.0 g/dL 09/19/2024 09:11 RDW 13.7 % 09/19/2024 09:11 PLT 215 10*3/uL 09/19/2024 09:11 MPV 11.2 fL 09/19/2024 09:11 NEUTROPHILS, AUTO % 73 % 09/19/2024 09:11 LYMPHOCYTES, AUTO % 15 % 09/19/2024 09:11 MONOCYTES, AUTO % 7 % 09/19/2024 09:11 EOSINOPHILS, AUTO % 4 % 09/19/2024 09:11 BASOPHILS, AUTO % 1 % 09/19/2024 09:11 NEUTROPHILS, ABSOLUTE 3.91 10*3/uL 09/19/2024 09:11 LYMPHOCYTES, ABSOLUTE 0.78 10*3/uL 09/19/2024 09:11 MONOCYTES, ABSOLUTE 0.39 10*3/uL 09/19/2024 09:11 EOSINOPHILS, ABSOLUTE 0.20 10*3/uL 09/19/2024 09:11 BASOPHILS, ABSOLUTE 0.04 10*3/uL 09/19/2024 09:11 PSA: PROST. SPECIFIC AG.(PB-STL) 0.694 ng/mL 09/19/2024 09:11 Result: Acceptable Follow-up Action: Re check prior to next visit. Data results reviewed with patient and/or caregiver. REVIEW OF SYSTEMS: All systems reviewed and otherwise negative unless noted in HPI VITALS Temperature: 98 F [36.7 C] (03/26/2025 09:33) BP: 161/116 (03/26/2025 09:33) Pulse: 90 (03/26/2025 09:33) Resp: 16 (03/26/2025 09:33) PulsOx: 97% (03/26/2025 09:33) Pain: 3 (11/10/2024 18:42) Weight: Measurement DT WEIGHT LB(KG)[BMI] 03/26/2025 09:33 299.4(135.81)[41*] 09/19/2024 08:24 303(137.44)[41*] PHYSICAL EXAM Gen: Patient pleasant, appears adequately nourished, appropriately dressed, well-groomed. Pt yawning repeatedly throughout visit HEENT: Normocephalic; PERRLA, EOM, sclera white, cornea clear, conjunctiva pink. TM pearly ramirez, + light reflex. Throat without erythema or exudate Neck: supple, no lymphadenopathy, no thyroidmegaly, or carotid bruits Lungs: Lungs CTA, normal RR, no increased WOB noted Heart: RRR S1S2-m/r/g Abdomen: soft, non-tender, no hepatosplenomegaly, BS pos X4 neuro: A+OX4, no focal deficits, ambulates with steady gait, normal foot exam : deferred Psych: good affect, denies si/hi Back: Normal curvature, no crepitus/step-offs noted to C/T/L-spine, Equal shoulder and hip symmetry ext: no edema, + pedal pulses. Slight size difference of musculature from left to right upper and lower extremities. Strength and ROM equal bilateral skin: warm and dry, normal color for race, no rashes or skin lesions ASSESSMENT/PLAN: 1. DM 2 HGA1C 6.3 H % 09/19/2024 09:11 HGA1C 7.5 H % 08/03/2023 08:24 HGA1C 9.8 H % 02/13/2023 12:19 HGA1C 7.7 H % 08/17/2022 10:24 HGA1C 7.9 H % 03/01/2022 13:57 -Continue sliding scale Aspart, 45 units Lantus, Empaglaflozin, and 1mg Ozempic weekly (prvt PCP) -Cotninue watching diet and exercise as able -Will add clinical pharm to pt note for coverage of DM management 2. HTN -Continue Lisinopril -Avg 140/90 3. HLD TRIGLYCERIDE 180 H mg/dL 09/19/2024 09:11 CHOLESTEROL 116 mg/dL 09/19/2024 09:11 HDL(New) 29 L mg/dL 09/19/2024 09:11 CALCULATED LDL 51 mg/dL 09/19/2024 09:11 -Cotninue Atorvastatin -Continue watching diet and exercise as able --Discussed Mediterranean diet and 150 mins of exercise 4. Obesity -LSM currently -Continue Ozempic weekly -Continue watching diet and exercise as able --Discussed Mediterranean diet and 150 mins of exercise 5. ILSA -Pt to attempt CPAP usage and contact sleep clinic for new pressure settings -RT consult placed to assist w/ CPAP changes -Consult placed for mandibular device 6. GERD -Continue Omeprazole and avoiding trigger foods 7. Gout -Avoid alcohol, seafood, pork, and organ meats 8. Vitamin D Deficiency VITAMIN D, 25-HYDROXY 33.3 ng/mL 09/19/2024 09:11 VITAMIN D, 25-HYDROXY 22.7 L ng/mL 08/03/2023 08:24 VITAMIN D, 25-HYDROXY 15.7 L ng/mL 02/13/2023 12:19 -Continue Cholecalciferol 9. B12 Deficiency B12 214 pg/mL 09/19/2024 09:11 -Continue Cyanocobalmin 10. Constipation -LSM currently 11. Left knee pain/OA -Continue Gabapentin, OTC Tylenol, and Diclofenac -[facility] --Pt still wants to wait on sx, pt to contact the office/ortho when that changes 12. Depression/Anxiety/Insomnia -Denies SI/HI -Offered MH, pt declined -Pt to start Duloxeting 30mg daily to help w/ pain and secondarily assist with MH complaints 13. Headache -Continue OTC Tylenol, Aleve, excedrin -Pt to attempt CPAP usage and contact sleep clinic for new pressure settings -RT consult placed to assist w/ CPAP changes -Consult placed for mandibular device 14. Right hip pain -Most likely r/t overuse of that side -Continue Gabapentin, OTC Tylenol, and Diclofenac -Continue stretches prescribed by PT -Discussed Whole Health, Yoga, Pilates 15. Hx CP -Resolved 16. LBP -Pt to take Gabapentin at night w/ sleep -Pt prescribed 30mg Duloxetine during day for pain -Discussed Whole Health, Yoga, Pilates -Pt to F/U via phone in 2 months to discuss pain control --Pt to call sooner if med dosage is not effective and will increase then 17. Neuropathy/weakness -Explained to pt noted weak feeling and slight loss of mass to left side most likely d/t disuse r/t pain on that side (LUE neuropathy and left knee pain) -30 mg Duloxetine ordered during the day to help w/ pain and fatigue -Pt to continue Gabapentin at night -Pt to F/U via phone in 2 months to discuss pain control --Pt to call sooner if med dosage is not effective and will increase then #Labs Ordered: A1C, Cystatin C #Tests: None #RTC: 6 months PREVENTION & SCREENING: Colonoscopy: No data available for: COLONOSCOPY CONSULT REPORT STL SLT - Lab Tests Selected No selection items chosen for this component. AAA: No data available for: US ABD AORTA (AAA) US ABD AORTA SCREENING(AAA) US AAA SCREENING US ABDOMEN AORTA (AAA), LIMITED No Impressions found LDCT: LOW DOSE CHEST CT No data available for: ZZLDCT LUNG CANCER SCREENING No data available for: LDCT LCS 1, 3 OR 6 MONTH FOLLOW UP ZZLDCT LUNG CANCER SCREENING LDCT LUNG CANCER SCREENING No selection items chosen for this component. PSA: Collection DT Specimen Test Name Result Units Ref Range 09/19/2024 09:11 SERUM PSA 0.694 ng/mL 0 - 4 Comment: The listed sex of this patient may not be a typical Comment: indication for this test. Therefore, reference ranges or Comment: interpretive criteria listed may not be valid. Clinical correlation Comment: suggested. 02/13/2023 12:19 SERUM PSA 0.822 ng/mL 0 - 4 Comment: The listed sex of this patient may not be a typical Comment: indication for this test. Therefore, reference ranges or Comment: interpretive criteria listed may not be valid. Clinical correlation Comment: suggested. 12/02/2009 12:48 SERUM PSA 0.561 ng/ml 0 - 4 [facility] Bone Density No data available for: NM BONE DENSITY(DXA), AXIAL SKELETON BONE DENSITY (RAD) -P BONE DENSITY-P LAB SURGICAL PATHOLOGY No data available [facility] FACTORS SELECTED No data available for: [facility] Outside Abnormal ([facility]) Pap [facility] Outside Abnormal (Other) Pap [facility] Outside Normal Pap Immunizations ADMINISTERED Immunization Series Date Facility Reaction Info COVID-19 (Adjacent Applications), MRNA, LNP-S, * 2 02/16/2021 [facility]* <C> COVID-19 (PFIZER), MRNA, LNP-S, * 1 01/26/2021 [facility]* <C> INFLUENZA, SPLIT VIRUS, QUADRIVA* 01/05/2020 [facility] INFLUENZA, UNSPECIFIED FORMULATI* Says here* NOVEL [id number], ALL FOR* 02/10/2010 [facility]* <C> PNEUMOCOCCAL CONJUGATE PCV20, PO* 08/04/2022 [facility] PNEUMOCOCCAL POLYSACCHARIDE PPV23 07/27/2015 [facility] TDAP 4 12/15/2023 [facility] TDAP 07/04/2019 [facility]* <C> TDAP 2 05/24/2018 [facility] TDAP 12/02/2009 [facility]* <C> CONTRAINDICATED No data available REFUSED ======= Immunization Date Facility Info COVID-19 (MODERNA), MRNA, LNP-S,* 01/31/2023 [facility] <I> COVID-19 (MODERNA), MRNA, LNP-S,* 01/29/2024 [facility] <I> COVID-19 (PFIZER), MRNA, LNP-S, * 03/26/2025 [facility]* <I> COVID-19 (PFIZER), MRNA, LNP-S, * 09/19/2024 [facility] <I> INFLUENZA, UNSPECIFIED FORMULATI* 09/19/2024 [facility] <I> INFLUENZA, UNSPECIFIED FORMULATI* 01/29/2024 [facility] <I> INFLUENZA, UNSPECIFIED FORMULATI* 08/02/2023 [facility] <I> INFLUENZA, UNSPECIFIED FORMULATI* 02/07/2023 No Site <I> INFLUENZA, UNSPECIFIED FORMULATI* 01/31/2023 [facility] <I> <C> See the Detailed Immunizations Health Summary Component[DIM] for Comments <I> See the Detailed Immunizations Health Summary Component[DIM] for Additional Information * Value is truncated; see the Detailed Immunizations Health Summary Component[DIM] for complete text RETURN TO CLINIC: Return to Clinic order placed SUMMARY STATEMENT: Plan of care has been discussed with including expected therapeutic benefits and potential side effects of prescribed medication and treatments. verbalizes understanding and is in agreement with the plan of care. Patient was instructed to keep all scheduled appointments and contact materials inspector for any additional problems. THE SUPERVISING PHYSICIAN FOR THIS PATIENT ENCOUNTER IS MICHELE Calvert HTN Assess for Elevated BP>=140/90 - N,P,PH: Repeat blood pressure: 142/88 The patient declines the recommended changes in medications to improve blood pressure control. Comment: will revaluate in 1 month Cystatin C with eGFR Screen - N,P,PH: The patient has a condition that may benefit from obtaining a Cystatin C test for accurate assessment of renal function. Cystatin C w/eGFR ordered for renal assessment. RHS Screen - VS: RHS Screen Session Format: Face to Face Environmental Check Upon inquiry, the individual reports that the environment is safe to proceed. Informed Consent to Screen and Document The individual consents to proceed with screening. The individual consents to documentation of responses. PRIMARY SCREEN: In the past 12 months, how often did a current or former intimate partner (e.g., boyfriend, girlfriend, , , sexual partner): 1. Scream or curse at you Never 2. Insult or talk down to you Never 3. Threaten you with harm Never 4. Physically hurt you Never 5. Force or pressure you to have sexual contact against your will, or when you were unable to say no Never The HITS tool (items 1-4 above) is [place] copyright protected by Nash Cabrera MD, and the user has full rights to use it throughout the [place] system. PRIMARY SCREEN RESULT: The Primary Screen is NEGATIVE. The individual answered never to all forms of IPV above (i.e., answered never to all 5 items) The individual accepts education and/or resources: Yes - Offered verbal universal education about IPV EDUCATION: The individual indicated readiness to learn. Education offered during this session as noted above. The individual indicated understanding by asking relevant questions and making appropriate comments. No barriers to learning were observed or identified. Avg Risk Colorectal Cancer Screen - L,N,P,PH: AVERAGE RISK colorectal cancer screening is due based on information available to this clinical reminder Screening is due now. Colonoscopy consult has been ordered. See orders tab for details. Eye Care At-Risk Screen - L,N,PH,U: Patient identified to be at risk for the following eye condition(s): DIABETIC RETINOPATHY: Diabetes Diagnosis Information: Encounter Diagnosis: 11/10/2024@18:35 E11.9 (ICD-10-CM) Type 2 Diabetes Mellitus without Complications rank: SECONDARY Prov. Narr. - Type 2 Diabetes Mellitus without Complications Action: Referral Ordered: Comprehensive Eye Exam Patient has active eye problems/symptoms. Schedule for a comprehensive eye exam ordered. PAVE Foot Check - L,N,P,PH,PO,PT,U: A complete foot check was completed at this encounter. VISUAL INSPECTION: Includes inspection for skin breaks, deformity, erythema, trauma, pallor on elevation, dependent rubor, nail deformities, extensive callus and pitting edema. Visual exam results: Normal PEDAL PULSES: Includes palpation of dorsalis and posterior tibial pulses and signs/symptoms of vascular compromise like pain, pallor, paresthesia or paralysis. Present (even if diminished) SENSORY CHECK: Includes 10 gram Monofilament ([place]Rafal) test of sensation. Intact (Greater than or equal to 80% of sites checked) Abnormal (Less than 80% of sites checked): Intact LOW-RISK: LOW RISK INFORMATION PROVIDED: 1. Advised patient not to walk barefoot. 2. Explained the importance of daily foot checks for changes. 3. Stressed the importance of daily foot hygiene, including bathing and complete drying. The patient verbalized understanding and was offered a detailed handout on diabetic foot care. /caroline/ GABY GASPAR DNP, BOBO-C, PROCESS TECHNICIAN NURSE PRACTITIONER RESIDENT Signed: 03/26/2025 11:10 /caroline/ MICHELE Hernandez NURSE PRACTITIONER Cosigned: 03/26/2025 11:12 03/26/2025 ADDENDUM STATUS: COMPLETED I have seen this with the STRING STUDIES DIRECTOR resident. I have participated in developing the plan of care, and reviewed medications, lab, and any radiology reports. The concurs with the plan of care. /caroline/ MICHELE Hernandez NURSE PRACTITIONER Signed: 03/26/2025 11:13 GABY GASPAR [facility] March 26, 2025 09:37 AM NURSING NOTE: LOCAL TITLE: V15 PACT FACE TO FACE NOTE STL STANDARD TITLE: NURSING NOTE DATE OF NOTE: MARCH 26, 2025@09:37 ENTRY DATE: MARCH 26, 2025@09:37:24 AUTHOR: KIMBERLEY WILSON EXP COSIGNER: URGENCY: STATUS: COMPLETED Provider Visit: Patient Identifiers : Full Name Date of Reason for visit: Established Follow-Up Mode of Arrival: Ambulatory Allergy Review: METFORMIN MARCH 22, 2017 (HISTORICAL) Symptoms: DIARRHEA METHADONE MAY 08, 2011 (HISTORICAL) Symptoms: NAUSEA AND VOMITING Allergy list reviewed and remains current. Recent Vital Signs: Temperature: 98 F [36.7 C] (03/26/2025 09:33) Pulse: 90 (03/26/2025 09:33) Respiration: 16 (03/26/2025 09:33) B/P: 161/116 (03/26/2025 09:33) Pain: 3 (11/10/2024 18:42) Wt: 299.4 lb [135.81 kg] (03/26/2025:) Ht: 72 in [182.9 cm] (03/26/2025 09:) BMI: 40.7 POX: 97% (03/26/2025 09:) Would you like to discuss any personal problem, family problem, alcohol use, drug use, or a mental or emotional illness? No Contact provided Primary Care phone number and encouraged to call if any questions or concerns. Review that after hours nurse line [phone] and emergency room are available 04/06 for patient use. Contact verbalized good understanding. Alcohol Use Screen (AUDIT-C) - V: Alcohol Screen: SCREEN FOR ALCOHOL (AUDIT-C) An alcohol screening test (AUDIT-C) was negative (score=1). 1. How often did you have a drink containing alcohol in the past year? Consider a drink to be a 12 ounce can or bottle of regular beer, 8 ounces of malt liquor, a 5 ounce glass of table wine, or a 1.5 ounce shot of liquor (like scotch, gin, or vodka). Monthly or less 2. How many drinks containing alcohol did you have on a typical day when you were drinking in the past year? One or two drinks 3. How often did you have six or more drinks on one occasion in the past year? Never COVID-19 Immunization-L,N,P,PH,U: Refused Pfizer Monovalent COVID-19 vaccine Immunization: COVID-19 (PFIZER), MRNA, LNP-S, PF, BECCA-SUCROSE, 30 MCG/0.3 ML (AGES 12+ YEARS) Refusal Reason: PATIENT DECISION Patient refuses all immunization(s) in the COVID-19 group Date Documented: 03/26/25 09:39 /caroline/ KIMBERLEY RICHARDSON RN REGISTERED NURSE Signed: 03/26/2025 09:40 KIMBERLEY WILSON [facility]
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
--- OUTSIDE RECORDS SUMMARY | 2025-06-27 10:24 | XMS_ITS | Encounter Summary ---
Author Name [facility] [place] [facility] [place] Address [address] [place] [address] Care Team Providers Care Dietary Cook Name Role Phone CECY DO Primary Care Provider Unavailforrest e Insurance Providers: [...] FEP BASIC FAM April 03, 2010 112 [id number] [phone] FIORDALIZA DÍAZ PATIENT ANTHEM [place] FEP PREFERRED PROVIDER ORGANIZAT ION (PPO) FEP BASIC FAM April 03, 2010 112 [id number] [phone] FIORDALIZA DÍAZ PATIENT [place] F[place] PREFERRED PROVIDER ORGANIZAT ION (PPO) FEP BASIC FAM April 03, 2010 112 [id number] [phone] FIORDALIZA DÍAZ PATIENT ANTHEM FEP PREFERRED PROVIDER ORGANIZAT ION (PPO) FEP BASIC FAMIL Y April 03, 2010 112 [id number] FIORDALIZA DÍAZ PATIENT ANTHEM FEP PREFERRED PROVIDER ORGANIZAT ION (PPO) FEP BASIC FAMIL Y April 03, 2010 112 [id number] [phone] FIORDALIZA DÍAZ PATIENT BC BS [place] FEP PREFERRED PROVIDER ORGANIZAT ION (PPO) FEP-B ASIC- PPO April 03, 2010 112 [id number] BOX,FIORDALIZA PATIENT [place] FEP PREFERRED PROVIDER ORGANIZAT ION (PPO) FEP BASIC FAM April 03, 2010 112 [id number] [phone] BOX,FIORDALIZA PATIENT CAREMARK ([id number]) PRESCRIPT ION FEP April 03, 2010 [id number] BOX,FIORDALIZA PATIENT CAREMARK ([id number]) PRESCRIPT ION FEP April 03, 2010 [id number] BOX,FIORDALIZA PATIENT CAREMARK FEP ([id number]) PRESCRIPT ION FEPRX April 03, 2010 [id number] [phone] BOX,FIORDALIZA PATIENT CAREMARK FEP ([id number]) PRESCRIPT ION FEPRX April 03, 2010 [id number] [phone] BOX,FIORDALIZA PATIENT CAREMARK FEP [id number] PRESCRIPT ION FEP RX April 03, 2010 [id number] [phone] BOX,FIORDALIZA PATIENT CAREMARK FEP [id number] PRESCRIPT ION FEP RX April 03, 2010 [id number] [phone] FIORDALIZA DÍAZ PATIENT Selected Encounter This section includes the information on record at [place] for the Encounter. 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 Date/Time Primary/Secondary Diagnosis Diagnosis Name Provider Source Dec 19, 2024 04:49 PM PRIMARY Low back pain, unspecified TIAGO CROWELL [facility] Dec 19, 2024 04:49 PM SECONDARY Myalgia, unspecified site TIAGO CROWELL [facility] Plan of Treatment: Future Appointments (+ 6 months) and Future Tests (+/- 45 days) The Plan of Treatment section includes future care activities for the patient from all [place] [facility]. This section includes future appointments and future orders which are active, pending or scheduled. Future Appointments This section includes appointments that were scheduled to occur 6 months from the date of the Encounter, up to a maximum of 20 appointments. The data comes from all [facility] facilities. Appointment Date/Time Appointment Type Appointme nt Facility Name March 26, 2025 09:30 AM AMBULATORY - MEDICINE [facility] March 27, 2025 08:30 AM AMBULATORY - NONE [facility] April 02, 2025 01:00 PM AMBULATORY - NONE [facility] April 09, 2025 09:00 AM AMBULATORY - MEDICINE [facility] May 21, 2025 03:30 PM AMBULATORY - MEDICINE [facility] May 28, 2025 09:00 AM AMBULATORY - NONE [facility] Jun 02, 2025 12:00 PM AMBULATORY - NONE [facility] Social History: Smoking Status (Most current) and Tobacco Use (All prior to encounter date) This section includes the most current, and the historical, smoking and tobacco- related health factors from the [place] facility where the Encounter took place. Current Smoking Status This section includes the most current smoking, or tobacco-related health factor, from the [place] facility where the Encounter took place. Date/Time Current Smoking Status Comment Vicenta itgold Apr 29, 2015 02:46 PM LIFETIME NON-USER OF TOBACCO [facility] Tobacco Use History This section includes a history of the smoking, or tobacco-related health factors, that were collected on or before the date of the Encounter. The data comes from the [place] facility where the Encounter took place. Date/Time Smoking Status/Tobacco Use Comment F acfelice Jun 29, 2014 02:52 PM LIFETIME NON-USER OF TOBACCO [facility] Jul 10, 2013 02:20 PM LIFETIME NON-USER OF TOBACCO [facility] May 24, 2009 08:42 AM LIFETIME NON-USER OF TOBACCO [facility] Encounter Notes: All associated encounter notes This section contains the clinical notes associated to the Encounter. Date/Time Encounter Note(s) Provider Source Dec 19, 2024 12:47 PM CONSULT: LOCAL TITLE: CHIROPRACTIC [facility] CONSULT [facility] STANDARD TITLE: CONSULT DATE OF NOTE: DEC 19, 2024@12:47 ENTRY DATE: DEC 19, 2024@12:47:48 AUTHOR: VINI GAUTHIER COSIGNER: URGENCY: STATUS: COMPLETED REQUESTING PROVIDER: MARTINA JACINTO Thank you for your referral, as you know this is a 44 year old BLACK OR NOT OR MALE presenting to the Chiropractic clinic on 12/19/24 14:00 with a chief complaint of neck and low back pain. COMPLAINT: Patient is 44 y/o pleasant male who presents today for an evaluation of low back pain. It has been ongoing for 10 years, but in the last 6 months feels like it has gotten worse. He has done an EMG, and the results report it's due to neuropathy. Patient mentions that has been taking Ozempic for the last 7 months and only eats one meal a day due to the prescription. He has decreased his soda intake to 1x/wk and replacing it with sweetened tea. He reports having dropped his sugar levels from 12 to 6 in the past year. 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 Patient reports experiencing back pain when sitting, or walking for various amounts of time. 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 He notes that he bustos through work task and not taking enough screen time breaks. Patient is equipped with variable height desk, but his task chair has poor lumbar support. He endorses walking and bowling does help with the back pain, and does not experience radicular symptoms during activity. At it's worse he rates his low back pain, 8/10. Patient points to the lumbosacral region as the area pain with the R > L. He endorses experiencing b/l radicular pain that can go down to the feet. However today he feels more pain on the right side of the back that radiates behind the leg to the knee and anteriorly into the groin. Denies of any slips, falls, or injury. Denies n/t or bladder and bowel dysfunction. Patient also reports of neck pain that has been ongoing for 2-3 years. He points to the CT junction as the area of pain. He reports of no ORI, and has gradually gotten worse over time. Patient endorses experiencing headaches with light and sound sensitivity, just about every day for the last 3 months. He reports taking IBU 3x/day/every day for the pain. Denies of any nausea or vomiting. He rates the pain today, 12/22. RED FLAGS: [-] Recent unexplained weight loss [-] History of Cancer [-] Recent fever/chills [-] Chest Pain/SOB [-] Abdominal Pains [-] Bowel/Bladder Dysfunction intermittent increase in urination frequency, attributes to medication intermittent episodes of constipation and diarrhea [-] New Severe Headache experiences headaches every day, 3-02/19 pain, no nausea/vomiting, does get light and sound sensitivity [-] Dizziness standing up [-] History of Stroke PAST HISTORY: Surgery/Facet or Epidural Inj: injection left knee 3 years ago, not beneficial Past DC/PT/TENS: DC: 3 years for left knee, and neck pain, beneficial PT: 15 years for low back TENS: feels like shock no relief SIGNIFICANT INJURY OR ILLNESS: left knee replacement SOCIAL HISTORY/EMPLOYMENT: [employer] disability work, walks, bowling [employer] 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 TOBACCO: Denies ETOH: rarely ILLICITS: Denies Service Connected: Yes (100%) DS - Disabilities Eligibility: SERVICE CONNECTED 50% to 100% VERIFIED Total S/C %: 100 HIATAL HERNIA 30% 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% S/C SLEEP APNEA SYNDROMES 50% S/C OSTEOMALACIA 10% S/C KNEE CONDITION 0% S/C INTERVERTEBRAL DISC SYNDROME 40% S/C KNEE CONDITION 0% S/C EXCESSIVE TEARING 0% S/C MIGRAINE HEADACHES 50% S/C PHARYNX, INJURIES TO 0% S/C DEFORMITY OF THE PENIS 0% S/C MOOD DISORDER 70% S/C HYPERTENSIVE VASCULAR DISEASE 10% S/C LIMITED FLEXION OF KNEE 10% 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% S/C CAN score: N/A GOALS: knowledge, would like answers of how to better manage symptoms REFERRAL DATE: 09/19/2024 EXAM DATE(S): 12/19/24 14:00 INITIAL TREATMENT DATE: 12/19/24 14:00 TYPE OF CARE: active DISCHARGE DATE: ALERTS: EXAMINATION APPEARANCE, MOOD & ORIENTATION The patient is a 44 year old BLACK OR NOT OR MALE, who is alert and oriented to person, place, and time. The patient is in no apparent distress and is well developed and well nourished. Patient walks with a limp limiting pressure on LLE. There is no visible antalgia nor hitch in his gait OBJECTIVE/PALPATION: taut and tender lumbar, thoracic, cervical. TrP right levator and left supraspinatus RESTRICTIONS: lumbar, thoracic CERVICAL RANGE OF MOTION: Ranges of motion in flexion, extension, lateral flexion, and rotation were all in normal range except: left lateral flexion and right rotation with pain R cervical paraspinals. THORACOLUMBAR RANGE OF MOTION : Ranges of motion in extension, lateral flexion, and rotation were all in normal range excepct: flexion restriction with hands to mid chopra with pain lumbosacral junction. SENSORY Light touch: Bilateral upper/lower extremities intact without deficit. Patient experienced increased sensation to touch on entire R LE compared to L. MOTOR (Graded 0-5) All 5/5 bilaterally except : L R Deltoids (C5) Biceps (C6) Wrist Extension (C6) Triceps (C7) Finger Extension (C7) Finger Flexion (C8) Finger Adduction (T1) Hip Flexion - Iliopsoas (L1,2,3) Leg Extension - Quadriceps (L2,3,4) Hip Adduction (L2,3,4) Tibialis Anterior (L4) Extensor Hallucis Longus (L5) Peroneus Longus and Brevis (S1) REFLEXES - Deep Tendon All 2+ bilaterally except (Graded 0-4) L R Biceps (C5) Triceps (C7) Brachioradialis (C6) Patellar (L4) 0 0 Achilles (S1) ORTHOPEDIC All tests negative except as indicated: L R Location of Pain Foraminal Compression Max Foraminal Compression + central Anuj's Compression + central Distraction Comments Gait Toe Walk (S1,S2) Heel Walk (L4,L5) Jarad's Sign Comments: Able to stand on their heels and on their toes without difficulty L R Location of Pain Kemps Standing + central LB Bechterew's Tripod Sign SLR 60 70 central LB Efrem FABERE + + central and right hip Denita's Hibb's Nachlas Julissa's [place]'s + anterior thigh Additional Tests: Clonus (-) LE Hoffmans (-) UE OK sign (-) UE Additional Comments: Palmar inspection normal color, muscle tone, and turgor DIAGNOSTIC IMAGING Exam Date/Time 03/03/2019 08:44 Procedure Name SPINE CERVICAL MIN 4 OR 5 VIEWS Reason for Study radicular left shoulder pain Clinical History as above Impression FINDINGS/IMPRESSION: Left 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 No acute fracture or malalignment. Intact ribs. No pneumothorax. Straightening of the typical cervical lordosis. Loss of disc height at C4-5 and C6-7 with marginal osteophytes. Suboptimal cervical spine radiographs fail to demonstrate the cervicothoracic junction, even on the swimmer's view. Atlantoaxial relationships are grossly maintained (although the C1/C2 relationships are obscured by over-projecting teeth on the odontoid view). Prevertebral soft tissues grossly unremarkable. Exam Date/Time 02/28/2019 12:40 Procedure Name MRI SPINE LUMBAR W/O CONT Reason for Study eval for stenosis Clinical History back pain radiates down the bilateral posterior legs to the bottoms of the feet, left greater than right. He states there is associated numbness and tingling. Report INDICATION: Degenerative disc disease COMPARISON: 07/23/2018 TECHNIQUE: MRI lumbar spine without intravenous contrast. This patient was unable to complete the study due to severe claustrophobia. Only the sagittal T2 sequences performed. FINDINGS: For purposes of this dictation, the lowest fully formed intervertebral disc space is designated as L5-S1. Redemonstrated is endplate remodeling most prominent at L4-L5 which is associated with intervertebral disc space height loss. Redemonstrated is prominent disc herniation at L4-L5 resulting in central canal stenosis. Exam Date/Time 04/25/2018 13:15 Procedure Name MRI SPINE LUMBAR W/O CONT Reason for Study low back pain Clinical History 37 y old male with chronic low back pain now getting worse and now with pain radiating down the left leg with numbness x 3 months Report INDICATION: low back pain COMPARISON:Radiographs 03/18/2018, MRI 05/24/2011 TECHNIQUE: MRI lumbar spine without intravenous contrast FINDINGS: Only the sagittal T2 sequence could be performed. The patient was unable to tolerate the study due to claustrophobia. The patient cannot take sedation. The lowest fully formed intervertebral intervertebral disc space is designated as L5-S1. Degenerative intervertebral disc space height loss, discogenic changes, endplate remodeling and signal changes have progressed at L4-L5. No acute fracture or traumatic subluxation. Distal spinal cord signal not well evaluated. Posterior disc osteophyte complex and facet arthropathy at L4-L5 result in bilateral neuroforaminal stenosis and central canal stenosis. ASSESSMENT: Nonspecific low back pain with neuropathy and myalgia with associated segmental dysfunction complicated by comorbidities and degenerative changes. No red flags. Neurological exam intact except could not illicit L4 b/l, and patient experiences greater sensation on the R LE in neurological exam. Prognosis is guarded given patient's past medical history. However, patient is receptive working with [facility] in managing his symptoms. open to working with PACT nutrition therapist. PLAN: The patient was given a review of findings following the exam. The benefits, risks and alternatives to animal care worker were discussed with the patient, along with an opportunity to ask questions. Patient then gave an informed consent to treatment. Plan of care will consist of 4-6 visits consisting of chiropractic manipulation with an incremental increase in home exercise depending on the patients response. The patient agrees to this plan. Treatment consisted of flexion distraction lumbar, Abdi drop lumbar and SIJ regions. Manual therapy consisting of vibratory massage of thoracic and lumbar paraspinal. Table assisted pin and stretch thoracolumbar paraspinals. Manual therapy 10 minutes. Patient was instructed in /20/20 breaks from desk work, Bruegger's Stretch. Therapeutic exercise 10 minutes. The patient reported feeling much better following their treatment. May consider lumbar support, hamstrings stretch, quad/hip flexor stretch, knee strengthening exercise. Encourage increased walking, seated hip flexion activation. Outpatient consultation consisting of chart review, history, examination, education and documentation 43 minutes. HOME CARE: Rule of 20's Bruegger's Stretches RTC: 2 weeks /es/ VINI GAUTHIER [facility] Chiropractic Physician Signed: 12/19/2024 17:11 VINI GAUTHIER [facility]
--- OUTSIDE RECORDS SUMMARY | 2025-06-27 10:24 | XMS_ITS | Encounter Summary ---
Author Name [place] Address [address] [place] [address] Care Team Providers Care Record Retrieval Specialist Name Role Phone CECY DO Primary Care [...] FEP BASIC FAM April 03, 2010 112 [id number] [phone] FIORDALIZA DÍAZ ANTHEM [place] FEP PREFERRED PROVIDER ORGANIZAT ION (PPO) FEP BASIC FAM April 03, 2010 112 [id number] [phone] FIORDALIZA DÍAZ [place] FEP PREFERRED PROVIDER ORGANIZAT ION (PPO) FEP BASIC FAM April 03, 2010 112 [id number] [phone] FIORDALIZA DÍAZ ANTHEM FEP PREFERRED PROVIDER ORGANIZAT ION (PPO) FEP BASIC FAMIL Y April 03, 2010 112 [id number] FIORDALIZA DÍAZ PATIENT ANTHEM FEP PREFERRED PROVIDER ORGANIZAT ION (PPO) FEP BASIC FAMIL Y April 03, 2010 112 [id number] [phone] BOX,FIORDALIZA PATIENT BC BS [place] FEP PREFERRED PROVIDER ORGANIZAT ION (PPO) FEP-B ASIC- PPO April 03, 2010 112 [id number] BOX,FIORDALIZA PATIENT [place] FEP PREFERRED PROVIDER ORGANIZAT ION (PPO) FEP BASIC FAM April 03, 2010 112 [id number] [phone] BOXMARCON PATIENT CAREMARK ([id number]) PRESCRIPT ION FEP April 03, 2010 [id number] BOX,FIODRALIZA PATIENT CAREMARK ([id number]) PRESCRIPT ION FEP April 03, 2010 [id number] [phone] BOX,FIORDALIZA PATIENT CAREMARK FEP ([id number]) PRESCRIPT ION FEPRX April 03, 2010 [id number] [phone] BOX,FIORDALIZA PATIENT CAREMARK FEP ([id number]) PRESCRIPT ION FEPRX April 03, 2010 [id number] [phone] BOX,FIORDALIZA PATIENT CAREMARK FEP [id number] PRESCRIPT ION FEP RX April 03, 2010 [id number] [phone] BOX,FIORDALIZA PATIENT CAREMARK FEP [id number] PRESCRIPT ION FEP RX April 03, 2010 [id number] [phone] BOX,FIORDALIZA PATIENT Selected Encounter This section includes the information on record at [place] for the Encounter. Date/Time Encounter Type Encounter Description Reason Pro vider Source IHE Encounter Template Text not used by [place]
--- OUTSIDE RECORDS SUMMARY | 2025-06-27 10:24 | XMS_ITS | Encounter Summary ---
Author Name [facility] [place] Address [address] [place] [address] Care Team Providers Care Digital Photographer Name Role Phone CECY DO Primary Care [...] FEP BASIC FAM April 03, 2010 112 [id number] [phone] FIORDALIZA DÍAZ ANTHEM [place] FEP PREFERRED PROVIDER ORGANIZAT ION (PPO) FEP BASIC FAM April 03, 2010 112 [id number] [phone] FIORDALIZA DÍAZ [place] FEP PREFERRED PROVIDER ORGANIZAT ION (PPO) FEP BASIC FAM April 03, 2010 112 [id number] [phone] FIORDALIZA DÍAZ ANTHEM FEP PREFERRED PROVIDER ORGANIZAT ION (PPO) FEP BASIC FAMIL Y April 03, 2010 112 [id number] [phone] FIORDALIZA DÍAZ PATIENT ANTHEM FEP PREFERRED PROVIDER ORGANIZAT ION (PPO) FEP BASIC FAMIL Y April 03, 2010 112 [id number] [phone] BOX,FIORDALIZA PATIENT BC BS [place] FEP PREFERRED PROVIDER ORGANIZAT ION (PPO) FEP-B ASIC- PPO April 03, 2010 112 [id number] BOX,FIORDALIZA PATIENT [place] FEP PREFERRED PROVIDER ORGANIZAT ION (PPO) FEP BASIC FAM April 03, 2010 112 [id number] [phone] BOXMARCON PATIENT CAREMARK ([id number]) PRESCRIPT ION FEP April 03, 2010 [id number] BOX,FIORDALIZA PATIENT CAREMARK ([id number]) PRESCRIPT ION FEP April 03, 2010 [id number] BOX,FIORDALIZA PATIENT CAREMARK FEP ([id number]) PRESCRIPT ION FEPRX April 03, 2010 [id number] [phone] BOX,FIORDALIZA PATIENT CAREMARK FEP ([id number]) PRESCRIPT ION FEPRX April 03, 2010 [id number] [phone] BOX,FIORDALIZA PATIENT CAREMARK FEP [id number] PRESCRIPT ION FEP RX April 03, 2010 [id number] [phone] BOX,FIORDALIZA PATIENT CAREMARK FEP [id number] PRESCRIPT ION FEP RX April 03, 2010 [id number] [phone] BOX,FIORDALIZA PATIENT Selected Encounter This section includes the information on record at [place] for the Encounter. Date/Time Encounter Type Encounter Description Reason Pro vider Source I[facility] Encounter Template Text not used by [place]
--- OUTSIDE RECORDS SUMMARY | 2025-06-27 10:24 | XMS_ITS | Clinical Summary ---
Author Organization 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 Gender Identity Not on file Sexual Orientation Not on file Plan of Treatment Health Maintenance Due Date Last Done Comments Hepatitis C Virus (HCV) Screening 1979 TdaP Immunization 1979 Hepatitis B Immunization (1 of 3 - 19+ 3-dose series) 1998 Human Papillomavirus (HPV) Immunization (1 - 3-dose SCDM series) 2006 SARS-COV-2 Immunization ( season) 2024 Cologuard 2024 Colonoscopy 2024 Colorectal Cancer Screening 2024 Immunochemical Fecal Occult Blood 2024 Influenza Immunization (#1) 2025 Respiratory Syncytial Virus (RSV) Immunization (Adult) (1 - 1-dose 75+ series) 2054 Meningococcal Immunization (ACWY) Aged Out No longer eligible based on patient's age to complete this topic Pneumococcal Immunization Combined Aged Out No longer eligible based on patient's age to complete this topic Rotavirus Immunization Aged Out No lo nger eligible based on patient's age to complete this topic
--- OUTSIDE RECORDS SUMMARY | 2025-06-27 10:24 | XMS_ITS | Continuity of Care Document ---
Author Name [facility] Organization [facility] Care Team Providers Care Application Tester Name Role Phone [facility] Unavailable Unavailable Problems Combined list of problems 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 It does not include entries that were removed or entered in error. Problem Status Onset Date Problem Type Date of Resolution Comments Source MALE ERECTILE DISORDER Active Condition reassurance, possibly due to HTN meds. Will change meds and reevaluate before working up ED further. DoD CONDITIONS INFLUENCING HEALTH STATUS Active Condition DoD diarrhea Active Condition immodium ordered DoD KNEE SPRAIN CRUCIATE LIGAMENT ANTERIOR Active Condition DoD ASTIGMATISM - REGULAR Active Condition DoD REFRACTIVE ERROR - HYPERMETROPIA Active Condition DoD HEADACHE SYNDROMES Inactive Condition Do D BACKACHE Active Condition [facility] headache Inactive Condition possibly r /t allergies DoD LUMBAGO Active Condition DoD Vaccines Prophylactic Need Against Influenza Inactive Condition [facility] Body Mass Index Active Condition [facility] Patient Education - Dietary Active Condition Pt completed questionnaire prior to start of class. Questionnaire revealed: _x__high calorie beverages, _x__high fat foods, _x__meal/snack infrequency, _x__oversized portions, __x_decreased activity level may be contributing to overweight/obesity. Reviewed behavioral/eating/l ifestyle characteristics of soldiers on the wt mgt program; incr metabolism by not skipping meals; eating in response to hunger and satiety; food groups, nutrients, and high fat sources of each; food guide pyramid; emphasized the need for awareness of serving size, kcal from sweetened beverages, and restaurant food choices, and non-hunger eating; the need for carbohydrate/glycog en replacement; Goal - pt will keep food journal to improve awareness and get fasting blood sugar, thyroid function and cholesterol panel checked. 60 MINUTES FACE TO FACE TIME. [facility] visit for: ears, nose, and throat exam Inactive Condition [facility] SLEEP APNEA OBSTRUCTIVE Active Condition Assessment: Pt with ILSA that is symptomatic. I have discussed the PSG, diagnosis, and treatment options (CPAP, dental appliance, ENT surgery and wt loss). At present, he wishes to continue on CPAP therapy. Discussed the importance of compliance, weight loss and good sleep hygiene. Also, the implications (AR [id number]) of the diagnosis were discussed. He currently meets retention stds for this dx. Plan: 1) continue CPAP @ 7 cm H2O. Profile (temp) provided for access to electricity. Increase use to q night. Consider increasing humidity to improve xerostomia.; 2) Good sleep hygiene; 3) wt loss encouraged; 4) keep ENT appt; 5) Safety briefing provided. To f/u in 3 months. All questions answered. DoD OSTEOARTHROSIS KNEE Active Condition MEB for Chronic left knee DJD. HX of twisting injury in 2001. Constant left knee pain with associated swelling, popping, giving way and occassional locking. Imaging: Left knee ( Dec 19), MRI left knee ( April 18). Tx : Physical therapy, Aquatic therapy, knee class, ACL knee brace, knee sleeve, NSAODS, profile. No active meds. P3 profile [facility] OSTEOARTHRITIS Active Condition [facility] NONORGANIC SLEEP DISORDERS Active Condition The patient was referred for a possible sleep disorder.The patient attended a group session on sleep disorders. The patient completed a comprehensive sleep questionnaire that was reviewed by the sleep medicine physician. During the group appointment, I gave an interactive presentation covering respiratory therapy, nutrition, behavioral medicine, pharmacology and sleep medicine designed to educate and inform the patient about the multidisciplinary nature of many sleep disorders and self help options for addressing many of these issues. The patient was shown a short video designed to familiarize the patient with sleep laboratory procedures. At the conclusion of the session, the patient was appointed to an overnight polysomnogram or Sleep Clinic appointment to best address the likely sleep disorder. The patient was given a safety briefing about driving precautions when sleepy. The patient was given an opportunity to ask questions at the completion of the group session. All questions were answered.Detailed questionnaire reviewed. The patient has a high clinical suspicion for sleep disordered breathing. Proceed to a split night PSG prior to 1:1 appointment with a sleep physician. [facility] Observation For Suspected Medical Condition Inactive Condition DoD feared medical condition not demonstrated Inactive Condition f/u with pcm fo r annual evaluations. DoD visit for: screening exam hypertension Active Condition diastolic press ure slightly high: Patient encouraged to f/u next week with 5 day b/p reading DoD Other Physical Therapy Active Condition DoD visit for: physical medical evaluation board (MEB) Inactive Condition DoD ESSENTIAL HYPERTENSION Active Condition continue 5 day bp check DoD insomnia Active Condition [facility] PRIMARY SNORING Active Condition DoD HYPERTENSION (SYSTEMIC) Active Condition stopped HCTZ du e to ED, started new HTN meds. 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 [facility] Knee Motion Active Condition [facility] OBESITY Active Condition [facility] Anxiety Active Condition [facility] ARTHRALGIA [facility] Benign essential hypertension (SNOMED CT 2596737) Active Condition [facility] Constipation Active Condition [facility] Decreased vitamin B12 level Active Condition [facility] DEGENERATIVE JOINT DISEASE (DJD) [facility] Depression Active Condition [facility] Diabetes mellitus type 2 Active Condition [facility] Eczema * (ICD-9-CM 692.9) [facility] Gastroesophageal reflux disease Active Condition [facility] Gout Active Condition [facility] Headache Active Condition [facility] Hyperglycemia * (ICD-9-CM 790.29) [facility] Hyperlipidemia Active Condition [facility] Insomnia Active Condition [facility] Low back pain Active Condition [facility] LOW BACK PAIN Active Condition [facility] Morbid Obesity * (ICD-9-CM 278.01) [facility] Obesity Active Condition [facility] Osteoarthritis of knee (SNOMED CT 487644032) Active Condition Apr 15, 2012 Entered By: NARRA,KAMINI B Comment: severe [facility] Other and unspecified Sleep Apnea (ICD-9-CM 780.57) Active Condition [facility] Pain in right hip joint Active Condition [facility] Pain of left knee region Active Condition [facility] Polyneuropathy due to diabetes mellitus Active Condition [facility] pre diabetes Active Condition [facility] Sleep apnea (SNOMED CT 55872502) Active Condition [facility] Vitamin D deficiency Active Condition [facility] ACL Injury, Chronic Inactive Condition 01/30/2024 [facility] Body mass index 30+ - obesity Inactive Condition 01/30/2024 [facility] Chronic low back pain (SNOMED CT 503657887) Inactive Condition 01/30/2024 Feb 02, 2011 Entered By: KAMINI ALBERT Comment: disc herniation L4-5 [facility] Degeneration of lumbar intervertebral disc (SNOMED CT 43200895) Inactive Condition 01/30/2024 [facility] Diabetes Mellitus without mention of Complication, type II or unspecified type, Inactive Condition 01/30/2024 [facility] Herniated Disc * Inactive Condition 01/30/2024 [facility] Impotence of organic origin Inactive Condition 01/30/2024 [facility] Injury of right wrist Inactive Condition 01/30/2024 [facility] Lack of Housing (ICD-9-CM V60.0) Inactive Condition 01/30/2024 [facility] Old disruption of anterior cruciate ligament Inactive Condition 01/30/2024 [facility] Diagnosis: ICD-10-CM Z01.818 Encounter for other preprocedural examination Active Diagnosis [facility] Diagnosis: ICD-10-CM Z12.11 Encounter for screening for malignant neoplasm of colon Active Diagnosis [facility] Diagnosis: ICD-10-CM Z01.20 Encounter for dental exam and cleaning w/o abnormal findings Active Diagnosis [facility] Diagnosis: ICD-10-CM E11.42 Type 2 diabetes mellitus with diabetic polyneuropathy Active Diagnosis [facility] Diagnosis: ICD-10-CM G47.33 Obstructive sleep apnea (adult) (pediatric) Active Diagnosis [facility] Diagnosis: ICD-10-CM E11.9 Type 2 diabetes mellitus without complications Active Diagnosis [facility] Diagnosis: ICD-10-CM M54.50 Low back pain, unspecified Active Diagnosis [facility] Diagnosis: ICD-10-CM J02.9 Acute pharyngitis, unspecified Active Diagnosis [facility] Diagnosis: ICD-10-CM I10 Essential (primary) hypertension Active Diagnosis [facility] Diagnosis: ICD-10-CM E10.40 Type 1 diabetes mellitus with diabetic neuropathy, unsp Active Diagnosis [facility] Medications Combined list of outpatient medications from Department of Defense and [facility] Affairs facilities.Medications provided include 1) outpatient medications from the last 15 months, and 2) patient-reported medications. Medication Details Route Status Patient Instructions Prescription Expires Prescription Number Last Dispense Date Ordering Provider Order Date Order Qty Source ACETAMINOPH EN TAB TAKE BY MOUTH FOUR TIMES A DAY NEEDED ORAL ACTIVE VIDHYA JACINTO LBY R 2022 [facility] ALLOPURINOL 100MG TAB TAKE ONE TABLET BY MOUTH ONCE A DAY FOR GOUT. TAKE WITH PLENTY OF WATER. ORAL ACTIVE 03/27/2026 [id number] 5 GABY GASPAR 2024 90 [facility] AMOXICILLIN TRIHYDRATE 500MG CAP TAKE TWO CAPSULES BY MOUTH ONCE A DAY FOR PHARYNGI TIS TAKE UNTIL GONE UNLESS OTHERWIS E DIRECTED . ORAL 12/10/2024 [id number] JOSEPHINE GENAO 2023 20 [facility] ATORVASTATI N CA 40MG TAB TAKE ONE-HALF TABLET BY MOUTH EVERY EVENING FOR CHOLESTE ROL. REPORT ANY UNEXPLAI ERICK MUSCLE PAIN/WEA KNESS TO PROVIDER . ORAL ACTIVE 03/27/2026 [id number] 5 GABY GASPAR 2024 45 [facility] ATORVASTATI N CA 40MG TAB TAKE ONE-HALF TABLET BY MOUTH EVERY EVENING FOR CHOLESTE ROL. REPORT ANY UNEXPLAI ERICK MUSCLE PAIN/WEA KNESS TO PROVIDER . ORAL DISCONT INUED 01/21/2025 [id number] 4 VIDHYA JACINTO LBY R 2023 45 [facility] BACITRACIN 500UNT/GM OINT,TOP APPLY LIGHTLY TO AFFECTED AREA(S) TWICE DAILY FOR BACTERIA L INFECTIO N (EXTERNA L USE ONLY) TOPICA L 12/10/2024 [id number] VU,JOSEPHINE D 2023 30 [facility] BISACODYL 5MG TAB,EC TAKE TWO TABLETS BY MOUTH ONE TIME TAKE BISACODY L TABLETS AT 4PM ON AFTERNOO N PRIOR TO TEST. CALL [phone] WITH ANY QUESTION S ABOUT THESE INSTRUCT IONS. MAIL TAKE BISACODY L TABLETS AT 4PM ON AFTERNOO N PRIOR TO TEST. CALL WITH ANY QUESTION S ABOUT THESE INSTRUCT IONS. MAIL ORAL ACTIVE 07/15/2025 [id number] 5 Frannie HOBSON 2024 2 [facility] BISACODYL 5MG TAB,EC TAKE TWO TABLETS BY MOUTH ONE TIME TAKE BISACODY L TABLETS AT 4PM ON AFTERNOO N PRIOR TO TEST. CALL WITH ANY QUESTION S ABOUT THESE INSTRUCT IONS. MAIL TAKE BISACODY L TABLETS AT 4PM ON AFTERNOO N PRIOR TO TEST. CALL [phone] WITH ANY QUESTION S ABOUT THESE INSTRUCT IONS. MAIL ORAL 05/09/2025 [id number] 5 Frannie HOBSON 2024 2 [facility] CHOLECALCIF MIKE 50MCG (2,000UNIT) TAB TAKE TWO TABLETS BY MOUTH ONCE A DAY FOR VITAMIN D DEFICIEN CY ORAL ACTIVE 09/20/2025 [id number] 5 VIDHYA JACINTO R 2024 200 [facility] CHOLECALCIF MIKE 50MCG (2,000UNIT) TAB TAKE TWO TABLETS BY MOUTH ONCE A DAY FOR VITAMIN D DEFICIEN CY ORAL DISCONT INUED 01/21/2025 [id number] 4 VIDHYA JACINTO R 2023 200 [facility] CYANOCOBALA MIN 500MCG TAB TAKE ONE TABLET BY MOUTH ONCE A DAY FOR B12 SUPPLEME NTATION ORAL ACTIVE 03/27/2026 [id number] 5 GABY GASPAR 2024 100 [facility] CYANOCOBALA MIN 500MCG TAB TAKE ONE TABLET BY MOUTH ONCE A DAY FOR B12 SUPPLEME NTATION ORAL DISCONT INUED 01/30/2025 [id number] VIDHYA JACINTO R 2023 100 [facility] DICLOFENAC NA 1% GEL,TOP APPLY 4 GM TO AFFECTED AREA(S) FOUR TIMES A DAY FOR PAIN/INF LAMMATIO N; NOT MORE THAN 16 GRAMS DAILY TO ANY LOWER EXTREMIT Y JOINT. NOT MORE THAN 8 GRAMS DAILY TO ANY UPPER EXTREMIT Y JOINT. MAX 32GM/DAY OVER ALL JOINTS. (MEASURE DOSE WITH RULER ATTACHED INSIDE BOX) TOPICA L ACTIVE 03/27/2026 [id number] 5 GABY GASPRA 2024 300 [facility] DICLOFENAC NA 1% GEL,TOP APPLY 4 GM TO AFFECTED AREA(S) FOUR TIMES A DAY FOR PAIN/INF LAMMATIO N; NOT MORE THAN 16 GRAMS DAILY TO ANY LOWER EXTREMIT Y JOINT. NOT MORE THAN 8 GRAMS DAILY TO ANY UPPER EXTREMIT Y JOINT. MAX 32GM/DAY OVER ALL JOINTS. (MEASURE DOSE WITH RULER ATTACHED INSIDE BOX) TOPICA L DISCONT INUED 01/30/2025 [id number] VIDHYA JACINTO R 2023 300 [facility] DULOXETINE HCL 30MG CAP,EC TAKE ONE CAPSULE BY MOUTH ONCE A DAY DO NOT ABRUPTLY DISCONTI NUE MEDICATI ON. ORAL ACTIVE 05/22/2026 [id number] CHASITY GABY Zhao 2024 90 [facility] DULOXETINE HCL 30MG CAP,EC TAKE ONE CAPSULE BY MOUTH ONCE A DAY DO NOT ABRUPTLY DISCONTI NUE MEDICATI ON. ORAL DISCONT INUED 06/24/2025 [id number] 5 CHASITYGABY Cece 2024 90 [facility] EMPAGLIFLOZ IN 25MG TAB TAKE ONE-HALF TABLET BY MOUTH ONCE A DAY ORAL ACTIVE 03/27/2026 [id number] 5 CHASITYGABY Cece 2024 45 [facility] EMPAGLIFLOZ IN 25MG TAB TAKE ONE-HALF TABLET BY MOUTH ONCE A DAY ORAL DISCONT INUED 01/21/2025 [id number] 4 OPHELIA,VIDHYA LBY R 2023 45 [facility] GABAPENTIN 100MG CAP TAKE ONE CAPSULE BY MOUTH THREE TIMES A DAY FOR NERVE PAIN ORAL ACTIVE 09/20/2025 [id number] 5 VIDHYA JACINTO LBY R 2023 270 [facility] HYDROPHILIC (EQV EUCERIN) CREAM,TOP APPLY LIGHTLY TO AFFECTED AREA(S) ONCE A DAY FOR DRY SKIN. (EXTERNA L USE ONLY) TOPICA L ACTIVE 03/27/2026 [id number] 5 GABY GASPAR 2024 454 [facility] INSULIN,ASP ART,HUMAN (EQV-NOVOLO G) 100 UNIT/ML,FLE XPEN,3ML INJECT 10 UNITS UNDER THE SKIN THREE TIMES A DAY BEFORE MEALS FOR BLOOD SUGAR CONTROL. ADMINIST ER 10 MINUTES BEFORE FOOD DIRECTED . REFRIGER ATE UN-OPENE D PENS. DISCARD CARTRIDG E 28 DAYS AFTER OPENING. SUBCUT ANEOUS ACTIVE 03/27/2026 [id number] 5 GABY GASPAR 2024 10 [facility] INSULIN,ASP ART,HUMAN (EQV-NOVOLO G) 100 UNIT/ML,FLE XPEN,3ML INJECT 10 UNITS UNDER THE SKIN THREE TIMES A DAY BEFORE MEALS FOR BLOOD SUGAR CONTROL. ADMINIST ER 10 MINUTES BEFORE FOOD DIRECTED . REFRIGER ATE UN-OPENE D PENS. DISCARD CARTRIDG E 28 DAYS AFTER OPENING. SUBCUT ANEOUS DISCONT INUED 01/21/2025 [id number] 4 VIDHYA JACINTO R 2023 10 [facility] INSULIN,GLA RGINE,HUMAN 100 UNT/ML INJ INJECT 42 UNITS UNDER THE SKIN ONCE A DAY TO CONTROL BLOOD SUGAR. ADMINIST ER AT SAME TIME EACH DAY DIRECTED . DISCARD ANY VIAL 28 DAYS AFTER OPENING. SUBCUT ANEOUS ACTIVE 09/20/2025 [id number] 5 OPHELIA,VIDHYA PRATER R 2023 3 [facility] INSULIN,GLA RGINE-YFGN 100UNIT/ML INJ INJECT 42 UNITS UNDER THE SKIN ONCE A DAY TO CONTROL BLOOD SUGAR. ADMINIST ER AT SAME TIME EACH DAY DIRECTED . DISCARD ANY VIAL 28 DAYS AFTER OPENING. SUBCUT ANEOUS DISCONT INUED 01/21/2025 [id number] VIDHYA JACINTO R 2023 3 [facility] LIDOCAINE 5% PATCH APPLY 1 PATCH TO SKIN SITE ONCE A DAY NEEDED APPLY PATCH AND PRESS FIRMLY FOR 10-15 SECONDS. KEEP ON FOR 12 HOURS THEN REMOVE PATCH FOR 12 HOURS. TRANSD ERMAL ACTIVE 03/27/2026 [id number] 5 GABY GASPAR F 2024 90 [facility] LISINOPRIL 40MG TAB TAKE ONE AND ONE-HALF TABLETS BY MOUTH ONCE A DAY FOR HIGH BLOOD PRESSURE FOR HEART OR BLOOD PRESSURE ORAL ACTIVE 09/20/2025 [id number] OPHELIA,VIDHYA PRATER R 2023 135 [facility] LISINOPRIL 40MG TAB TAKE ONE TABLET BY MOUTH ONCE A DAY FOR HEART OR BLOOD PRESSURE ORAL DISCONT INUED (EDIT) 01/21/2025 [id number] 4 VIDHYA JACINTO R 2023 90 [facility] METHOCARBAM OL 750MG TAB TAKE 1 TABLET BY MOUTH THREE TIMES A DAY NEEDED FOR MUSCLE RELAXANT ORAL DISCONT INUED BY PROVIDE R 06/28/2025 [id number] 4 VIDHYA JACINTO R 2023 270 [facility] NO NON-VA MEDICATIONS PER PATIENT INTERVIE W ACTIVE YULIANA OLVERA RAY [address] [place]bi [facility] OMEPRAZOLE 40MG CAP,EC TAKE ONE CAPSULE BY MOUTH EVERY MORNING BEFORE A MEAL TO LOWER STOMACH ACID. TAKE 30 MINUTES PRIOR TO FOOD. ORAL ACTIVE 09/20/2025 [id number] 5 VIDHYA JACINTO R 2024 90 [facility] OMEPRAZOLE 40MG CAP,EC TAKE ONE CAPSULE BY MOUTH EVERY MORNING BEFORE A MEAL TO LOWER STOMACH ACID. TAKE 30 MINUTES PRIOR TO FOOD. ORAL DISCONT INUED 01/30/2025 [id number] 4 VIDHYA JACINTO R 2023 90 [facility] PEG-3350/EL ECTROLYTES PWDR MIX AND DRINK CONTENTS OF BOTTLE BY MOUTH DIRECTED FOR BOWEL EMPTYING FILL WITH WATER TO THE LINE INDICATE D ON CONTAINE R. DRINK DIRECTED . (THE DAY BEFORE YOUR TEST ONLY DRINK CLEAR LIQUIDS- NO SOLID FOOD! TAKE THE BISACODY L TABLETS AT 4PM AND MIX THE CONTAINE R WITH WATER AND REFRIGER ATE. AT 7PM DRINK HALF OF THE CONTAINE R. REFRIGER ATE OVERNIGH T. COMPLETE CONTAINE R 3 HRS BEFORE LEAVING HOME FOR TEST. READ YOUR INSTRUCT IONS!) ORAL ACTIVE 07/19/2025 [id number] Carmen JUNIOR 2024 1 [facility] PEG-3350/EL ECTROLYTES PWDR MIX AND DRINK CONTENTS OF BOTTLE BY MOUTH DIRECTED FILL WITH WATER TO THE LINE INDICATE D ON CONTAINE R. DRINK DIRECTED . (THE DAY BEFORE YOUR TEST ONLY DRINK CLEAR LIQUIDS- NO SOLID FOOD! TAKE THE BISACODY L TABLETS AT 4PM AND MIX THE CONTAINE R WITH WATER AND REFRIGER ATE. AT 7PM DRINK HALF OF THE CONTAINE R. REFRIGER ATE OVERNIGH T. COMPLETE CONTAINE R 3 HRS BEFORE LEAVING HOME FOR TEST. READ YOUR INSTRUCT IONS!) FILL WITH WATER TO THE LINE INDICATE D ON CONTAINE R. DRINK DIRECTED . (THE DAY BEFORE YOUR TEST ONLY DRINK CLEAR LIQUIDS- NO SOLID FOOD! TAKE THE BISACODY L TABLETS AT 4PM AND MIX THE CONTAINE R WITH WATER AND REFRIGER ATE. AT 7PM DRINK HALF OF THE CONTAINE R. REFRIGER ATE OVERNIGH T. COMPLETE CONTAINE R 3 HRS BEFORE LEAVING HOME FOR TEST. READ YOUR INSTRUCT IONS!) ORAL DISCONT INUED (EDIT) 07/15/2025 [id number] 5 Frannie HOBSON 2024 1 [facility] PEG-3350/EL ECTROLYTES PWDR MIX AND DRINK CONTENTS OF BOTTLE BY MOUTH DIRECTED (THE DAY BEFORE YOUR TEST ONLY DRINK CLEAR LIQUIDS- NO SOLID FOOD! TAKE THE BISACODY L TABLETS AT 4PM AND MIX THE CONTAINE R WITH WATER AND REFRIGER ATE. AT 7PM DRINK HALF OF THE CONTAINE R. REFRIGER ATE OVERNIGH T. COMPLETE CONTAINE R 3 HRS BEFORE LEAVING HOME FOR TEST. READ YOUR INSTRUCT IONS!) (THE DAY BEFORE YOUR TEST ONLY DRINK CLEAR LIQUIDS- NO SOLID FOOD! TAKE THE BISACODY L TABLETS AT 4PM AND MIX THE CONTAINE R WITH WATER AND REFRIGER ATE. AT 7PM DRINK HALF OF THE CONTAINE R. REFRIGER ATE OVERNIGH T. COMPLETE CONTAINE R 3 HRS BEFORE LEAVING HOME FOR TEST. READ YOUR INSTRUCT IONS!) ORAL 05/09/2025 [id number] 5 Frannie HOBSON 2024 1 [facility] SEMAGLUTIDE 0.25MG/0.37 5ML INJ,SOLN,PE N,3ML INJECT 0.5MG UNDER THE SKIN EVERY WEEK SUBCUT ANEOUS ACTIVE ANIKA RAMON 2022 [facility] SIMETHICONE 80MG TAB,CHEW CHEW AND SWALLOW FOUR TABLETS BY MOUTH DIRECTED FOR TWO DOSES BEFORE GI PROCEDUR E ORAL ACTIVE 07/15/2025 [id number] 5 Frannie HOBSON 2024 8 [facility] SIMETHICONE 80MG TAB,CHEW CHEW AND SWALLOW FOUR TABLETS BY MOUTH DIRECTED FOR TWO DOSES BEFORE GI PROCEDUR E ORAL 05/09/2025 [id number] 5 Frannie HOBSON 2024 8 [facility] SODIUM FLUORIDE 1.1% TOOTHPASTE USE DIRECTED BY MOUTH TWICE A DAY TOOTHPAS TE (DO NOT SWALLOW) APPLY A PEA-SIZE D AMOUNT OF THE PASTE TO A TOOTHBRU SH AND BRUSH THOROUGH LY FOR TWO MINUTES, AT MORNING AND AT NIGHT; SPIT, DO NOT RINSE. DO NOT EAT, DRINK, OR RINSE FOR 30 MINUTES AFTER USE. TOOTHPAS TE (DO NOT SWALLOW) APPLY A PEA-SIZE D AMOUNT OF THE PASTE TO A TOOTHBRU SH AND BRUSH THOROUGH LY FOR TWO MINUTES, AT MORNING AND AT NIGHT; SPIT, DO NOT RINSE. DO NOT EAT, DRINK, OR RINSE FOR 30 MINUTES AFTER USE. ORAL ACTIVE 01/01/2026 [id number] 5 ROBERTO CARLOS CHARLES 2024 51 [facility] N Allergies, Adverse Reactions, Alerts Combined list of allergies 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 It does not include entries that were removed or entered in error. Substance Category Reaction Severity Reaction type Status Date Reported Comments Source ANALGESIC(O PIOD) DR[facility] GROUP FOR ALLERGIES Drug allergy (disorder) Nausea and Vomiting active 1 [facility] METFORMIN Propensity to adverse reactions to drug (finding) Diarrhea active 7 [facility] METHADONE Propensity to adverse reactions to drug (finding) Nausea and vomiting active 1 [facility] Immunizations Combined list of available immunizations from the Department of Defense and Veterans Affairs facilities. Immunization Series Date Given Administered By Site Reaction Lot Number CVX Code Drug Basket Filler Status Comments Source TDAP 4 2023 115 complet ed HISTORICA L INFORMATI ON - FROM OTHER REGISTRY, [facility] PNEUMOCOCCAL CONJUGATE PCV20, POLYSACCHARID E [id number] CONJUGATE, ADJUVANT, PF 2021 216 complet ed [facility] COVID-19 (PFIZER), MRNA, LNP-S, PF, 30 MCG/0.3 ML DOSE 2 2020 208 complet ed PFR; [id number]; 1 [facility] COVID-19 (PFIZER), MRNA, LNP-S, PF, 30 MCG/0.3 ML DOSE 1 2020 208 complet ed PFR; [id number]; 1 [facility] INFLUENZA, INJECTABLE, QUADRIVALENT, PRESERVATIVE FREE 2019 150 complet ed [facility] TDAP 2018 115 complet ed Right Deltoid [facility] TDAP 2 2017 115 complet ed HISTORICA L INFORMATI ON - FROM OTHER REGISTRY, [facility] N PNEUMOCOCCAL POLYSACCHARID E PPV23 2014 33 complet ed [facility] INFLUENZA, UNSPECIFIED FORMULATION 2009 88 complet ed [facility] NOVEL INFLUENZA-H1N 1-09, ALL FORMULATIONS 2009 128 complet ed Nov[employer]is [facility] N TDAP 2009 115 complet ed Left Deltoid [facility] N influenza virus vaccine, unspecified formulation 1 2006 IRWIN, FARSHAD [id number] 88 [employer] (SKB) complet ed influenza virus vaccine, unspecifi ed formulati on [facility] hepatitis A vaccine, adult dosage 2 2005 [id number] 52 Merck (MSD) complet ed hepatitis A vaccine, adult dosage DoD typhoid Vi capsular polysaccharid e vaccine 1 2005 [id number] Sanofi Pasteur (PMC) complet ed typhoid Vi capsular polysacch aride vaccine DoD influenza virus vaccine, live, attenuated, for intranasal use 1 2005 [id number] [employer] (MED) complet ed influenza virus vaccine, live, attenuate d, for intranasa l use [facility] tetanus and diphtheria toxoids, adsorbed, preservative free, for adult use (2 Lf of tetanus toxoid and 2 Lf of diphtheria toxoid) 1 2005 [id number] [employer] (AVB) complet ed tetanus and diphtheri a toxoids, adsorbed, preservat efren free, for adult use (2 Lf of tetanus toxoid and 2 Lf of diphtheri a toxoid) [facility] hepatitis A vaccine, adult dosage 1 2005 [id number] 52 [employer] (SKB) complet ed hepatitis A vaccine, adult dosage DoD measles, mumps and rubella virus vaccine 1 2001 UNK 03 Unknown (UNK) comple t ed measles, mumps and rubella virus vaccine DoD poliovirus vaccine, inactivated 1 2001 UNK 10 Unknown (UNK) comple t ed polioviru s vaccine, inactivat ed DoD Results Combined list of recent chemistry, hematology and other laboratory results from Department of Defense and Veterans Affairs, ranging from 15 months to all on record, depending upon the facility. Order Name Results Value Reference Range Date Interpretation Specimen Comments Source GLUCOSE, BLOOD-po ct (STL) GLUCOSE [MASS/VOLU ME] IN BLOOD BY AUTOMATED TEST STRIP 133 mg/dL 72 - 99 06/22 H Specimen Type: BLOOD Comment: Test Performed by: [id number] Meter #: [id number] Ordering Provider: RADHA JAMES Report Released Date/Time: Jun 22, 2025 07:31 AM Reporting Lab: [facility] [address] [facility] [address] Performing Lab: [facility] [address] [place] [phone] [facility] HGA1C HEMOGLOBIN A1C/HEMOGL OBIN.TOTAL IN BLOOD 6.9 4.0 - 6.0 04/02 H Specimen Type: BLOOD No comment entered. Ordering Provider: YULIANA GASPAR Report Released Date/Time: March 26, 2025 10:50 AM Reporting Lab: [facility] [address] [facility] [address] Performing Lab: [facility] [address] [facility] [address] [facility] CYSTATIN C EGFR PANELS (STL-PB- MA) CYSTATIN C [MASS/VOLU ME] IN SERUM OR PLASMA 1.15 mg/L 0.57 - 1.80 04/02 Specimen Type: PLASMA Comment: Choice of which of the reported eGFR values to use depends on the clinical situation. For example, for patients with severe muscle wasting or reduced muscle mass, eGFR calculated using the 2011 cystatin equation may be preferred. Ordering Provider: YULIANA GASPAR Report Released Date/Time: March 26, 2025 10:50 AM Reporting Lab: [address] [address] Performing Lab: [address] [address] [facility] CYSTATIN C EGFR PANELS (L-PB- MA) CKD-EPI CYSTATIN C (2011) 68.6 60 04/02 Specimen Type: PLASMA Comment: Choice of which of the reported eGFR values to use depends on the clinical situation. For example, for patients with severe muscle wasting or reduced muscle mass, eGFR calculated using the 2011 cystatin equation may be preferred. Ordering Provider: YULIANA GASPAR Report Released Date/Time: March 26, 2025 10:50 AM Reporting Lab: [address] [address] Performing Lab: [address] [address] [facility] CYSTATIN C EGFR PANELS (L-PB- MA) CKD-EPI CREAT-CYSC (2020) 75.4 60 04/02 Specimen Type: PLASMA Comment: Choice of which of the reported eGFR values to use depends on the clinical situation. For example, for patients with severe muscle wasting or reduced muscle mass, eGFR calculated using the 2011 cystatin equation may be preferred. Ordering Provider: YULIANA GASPAR Report Released Date/Time: March 26, 2025 10:50 AM Reporting Lab: [address] [address] Performing Lab: [address] [address] [facility] CYSTATIN C EGFR PANELS ([facility]-PB- MT) CREATININE [MASS/VOLU ME] IN SERUM OR PLASMA 1.13 mg/dL 0.7 - 1.3 04/02 Specimen Type: PLASMA Comment: Choice of which of the reported eGFR values to use depends on the clinical situation. For example, for patients with severe muscle wasting or reduced muscle mass, eGFR calculated using the 2012 cystatin equation may be preferred. Ordering Provider: YULIANA GASPAR Report Released Date/Time: March 26, 2025 10:50 AM Reporting Lab: [place] [address] [facility] [address] Performing Lab: [place] [address] [place] [address] COVID-19 DIAGNOST IC (FLU/RSV )([facility]) INFLUENZA VIRUS A AG [PRESENCE] IN NASOPHARYN X Negative 11/10 Specimen Type: NASOPHARYNX Comment: Qualitative real-time PCR and RT-PCR to detect viral RNA. A negative result does not preclude infection with the agent(s) tested and should not be used as the sole basis for treatment or other patient management decisions. If negative, but symptoms persist, consider re-testing. Positive results do not rule out bacterial infection or co-infectio n with other viruses. All results must be combined with clinical observation s, patient history, and epidemiolog ical information for final interpretat ion. Ordering Provider: EZEQUIEL DURAN Report Released Date/Time: Nov 10, 2024 06:43 PM Reporting Lab: [address] [address] Performing Lab: [place] [address] [facility] [phone] [place] [address] COVID-19 DIAGNOST IC (FLU/RSV )([facility]) INFLUENZA B Negative 11/10 Specimen Type: NASOPHARYNX Comment: Qualitative real-time PCR and RT-PCR to detect viral RNA. A negative result does not preclude infection with the agent(s) tested and should not be used as the sole basis for treatment or other patient management decisions. If negative, but symptoms persist, consider re-testing. Positive results do not rule out bacterial infection or co-infectio n with other viruses. All results must be combined with clinical observation s, patient history, and epidemiolog ical information for final interpretat ion. Ordering Provider: EZEQUIEL DURAN Report Released Date/Time: Nov 10, 2024 06:43 PM Reporting Lab: [address] [address] Performing Lab: [address] [address] [facility] COVID-19 DIAGNOST IC (FLU/RSV )(STL) SARS-COV-2 (COVID-19) RNA [PRESENCE] IN RESPIRATOR Y SYSTEM SPECIMEN BY NICKI WITH PROBE DETECTION Not Detected 11/10 Specimen Type: NASOPHARYNX Comment: Qualitative real-time PCR and RT-PCR to detect viral RNA. A negative result does not preclude infection with the agent(s) tested and should not be used as the sole basis for treatment or other patient management decisions. If negative, but symptoms persist, consider re-testing. Positive results do not rule out bacterial infection or co-infectio n with other viruses. All results must be combined with clinical observation s, patient history, and epidemiolog ical information for final interpretat ion. Ordering Provider: EZEQUIEL DURAN Report Released Date/Time: Nov 10, 2024 06:43 PM Reporting Lab: [address] [address] Performing Lab: [address] [address] [facility] COVID-19 DIAGNOST IC (FLU/RSV )(STL) RESPIRATOR Y SYNCYTIAL VIRUS RNA [PRESENCE] IN RESPIRATOR Y SYSTEM SPECIMEN BY NICKI WITH PROBE DETECTION NEGATIVE 11/10 Specimen Type: NASOPHARYNX Comment: Qualitative real-time PCR and RT-PCR to detect viral RNA. A negative result does not preclude infection with the agent(s) tested and should not be used as the sole basis for treatment or other patient management decisions. If negative, but symptoms persist, consider re-testing. Positive results do not rule out bacterial infection or co-infectio n with other viruses. All results must be combined with clinical observation s, patient history, and epidemiolog ical information for final interpretat ion. Ordering Provider: EZEQUIEL UDRAN Report Released Date/Time: Nov 10, 2024 06:43 PM Reporting Lab: [facility] [address] [facility] [address] Performing Lab: [address] [phone] [place] [address] URIC ACID 24-HOUR URINE PANEL VOLUME OF 24 HOUR URINE 2847 mL 09/25 Specimen Type: 24-HOUR URINE No comment entered. Ordering Provider: CONNIE JACINTO Report Released Date/Time: Sep 19, 2024 08:27 AM Reporting Lab: [facility] [address] [facility] [address] Performing Lab: [address] [facility] URIC ACID 24-HOUR URINE PANEL URATE [MASS/VOLU ME] IN 24 HOUR URINE comment 09/25 Specimen Type: 24-HOUR URINE No comment entered. Ordering Provider: CONNIE JACINTO Report Released Date/Time: Sep 19, 2024 08:27 AM Reporting Lab: [facility] [address] [facility] [address] Performing Lab: [address] [facility] URIC ACID 24-HOUR URINE PANEL URATE [MASS/TIME ] IN 24 HOUR URINE 740 120 - 820 09/25 L Specimen Type: 24-HOUR URINE No comment entered. Ordering Provider: CONNIE JACINTO Report Released Date/Time: Sep 19, 2024 08:27 AM Reporting Lab: [facility] [address] [place] [address] Performing Lab: [address] [facility] HGA1C HEMOGLOBIN A1C/HEMOGL OBIN.TOTAL IN BLOOD 6.3 4.0 - 6.0 09/19 H Specimen Type: BLOOD No comment entered. Ordering Provider: CONNIE JACINTO Report Released Date/Time: Sep 19, 2024 08:27 AM Reporting Lab: [place] [address] Performing Lab: [address] VITAMIN D, 25-HYDRO XY 25-HYDROXY VITAMIN D3 [MASS/VOLU ME] IN SERUM OR PLASMA 33.3 ng/mL 30 - 96 09/19 Specimen Type: SERUM Comment: The listed sex of this patient may not be a typical indication for this test. Therefore, reference ranges or interpretiv e criteria listed may not be valid. Clinical correlation suggested. Ordering Provider: CONNIE JACINTO Report Released Date/Time: Sep 19, 2024 08:27 AM Reporting Lab: [place] [address] Performing Lab: [address] TSH (MA-PB) THYROTROPI N [UNITS/VOL UME] IN SERUM OR PLASMA 0.858 u[IU]/mL 0.47 - 5 09/19 Specimen Type: SERUM Comment: The listed sex of this patient may not be a typical indication for this test. Therefore, reference ranges or interpretiv e criteria listed may not be valid. Clinical correlation suggested. Ordering Provider: CONNIE JACINTO Report Released Date/Time: Sep 19, 2024 08:27 AM Reporting Lab: [place] [address] Performing Lab: [address] LIPID PANEL (STL) CHOLESTERO L [MASS/VOLU ME] IN SERUM OR PLASMA 116 mg/dL 0 - 200 09/19 Specimen Type: PLASMA Comment: No hemolysis noted. Ordering Provider: CONNIE JACINTO Report Released Date/Time: Sep 19, 2024 08:27 AM Reporting Lab: [facility] [address] [facility] [address] Performing Lab: [facility] [address] [place] [address] [facility] LIPID PANEL (STL) TRIGLYCERI DE [MASS/VOLU ME] IN SERUM OR PLASMA 180 mg/dL 0 - 150 09/19 H Specimen Type: PLASMA Comment: No hemolysis noted. Ordering Provider: CONNIE JACINTO Report Released Date/Time: Sep 19, 2024 08:27 AM Reporting Lab: [address] [address] Performing Lab: [address] [address] [facility] LIPID PANEL (STL) CHOLESTERO L IN LDL [MASS/VOLU ME] IN SERUM OR PLASMA BY CALCULAONEIDAO N 51 mg/dL 09/19 Specimen Type: PLASMA Comment: No hemolysis noted. Ordering Provider: CONNIE JACINTO Report Released Date/Time: Sep 19, 2024 08:27 AM Reporting Lab: [address] [address] Performing Lab: [address] [address] [facility] LIPID PANEL (STL) CHOLESTERO L IN HDL [MASS/VOLU ME] IN SERUM OR PLASMA 29 mg/dL 40 09/19 L Specimen Type: PLASMA Comment: No hemolysis noted. Ordering Provider: CONNIE JACINTO Report Released Date/Time: Sep 19, 2024 08:27 AM Reporting Lab: [address] [address] Performing Lab: [address] [address] [facility] PROST. SPECIFIC AG.(PB-S TL) PROSTATE SPECIFIC AG [MASS/VOLU ME] IN SERUM OR PLASMA 0.694 ng/mL 0 - 4 09/19 Specimen Type: SERUM Comment: The listed sex of this patient may not be a typical indication for this test. Therefore, reference ranges or interpretiv e criteria listed may not be valid. Clinical correlation suggested. Ordering Provider: CONNIE JACINTO Report Released Date/Time: Sep 19, 2024 08:58 AM Reporting Lab: [facility] [address] [facility] [address] Performing Lab: [facility] [address] [facility] [address] [facility] Vital Signs Combined list of inpatient and outpatient Vital Signs from Department of Defense and Veterans Affairs, ranging from 12 months to all on record, depending upon the facility. Vital Sign Value Date Comments Source SYSTOLIC BLOOD PRESSURE 161 03/26/2025 09:33:58 [facility] DIASTOLIC BLOOD PRESSURE 116 03/26/2025 09:33:58 [facility] PULSE OXIMETRY 97 03/26/2025 09:33:58 [facility] WEIGHT 299.4 03/26/2025 09:33:[address] [facility] BMI 41 kg/m2 03/26/2025 09:33:[address] [facility] HEIGHT 72 03/26/2025 09:33:[address] [facility] TEMPERATURE 98 03/26/2025 09:33:58 [facility] PULSE 90 03/26/2025 09:33:[address] [facility] RESPIRATION 16 03/26/2025 09:33:58 [facility] SYSTOLIC BLOOD PRESSURE 130 11/10/2024 18:42:00 [facility] DIASTOLIC BLOOD PRESSURE 90 11/10/2024 18:42:00 [facility] PAIN 3 11/10/2024 18:42:00 [facility] TEMPERATURE 98 11/10/2024 18:42:00 [facility] PULSE 98 11/10/2024 18:42:00 [facility] RESPIRATION 18 11/10/2024 18:42:00 [facility] SYSTOLIC BLOOD PRESSURE 129 09/19/2024 08:24:49 [facility] DIAST[facility]LOOD PRESSURE 92 09/19/2024 08:24:49 [facility] PULSE OXIMETRY 96 09/19/2024 08:24:49 [facility] WEIGHT 303 09/19/2024 08:24:[facility] BMI 41 kg/m2 09/19/2024 08:24:[facility] PAIN 4 09/19/2024 08:24:49 [facility] TEMPERATURE 98.3 09/19/2024 08:24:49 [facility] PULSE 94 09/19/2024 08:24:49 [facility] RESPIRATION 18 09/19/2024 08:24:49 [facility] Encounters Combined list of: 1) Encounters from Department of Veterans Affairs facilities going backup to the last 18 months, not all VA inpatient encounters are included; 2) Encounters from the Department of Defense facilities going backup to 280 months. Location Location Details Encounter Type Encounter Number Reason For Visit Attending Provider ADM Date DC Date Status Disposition Source [place]) OUTPATIENT [id number] left knee pain JOHAN DELEON 12/11 Released w/o Limitations [place] [facility]PAT[place] [id number] L knee DONNY HWANG A 12/24 Released with Work/Duty [place] [facility] [place] OUTPATIENT [id number] pt/st rash on ear conf [email or web address] 40 KYA REDDY 01/16 Released [place]itations [place] [place]) [place]) OUTPATIENT [id number] PT/ST FOR KNEE PAIN IRA TAN 03/21 Released with Work/D[place]itations [place]) [place] OUTPATIENT [id number] NIALL CLINTON 03/25 [place] [id number] JOINT PAIN LEFT KNEE ASHOK ESPARZA I 05/06 Released with Work/[place]PAT[place] [id number] inserts IRA AZEVEDO 05/06 [place] OUTPATIENT [id number] S/T/INS ISTED ON APPT TO GET MRI RESULTS LIDIA VILLAVICENCIO 05/07 [place]ased [place] Limitations [place] [place]) [place] [id number] knee pain MELVIN VILLA 05/08 Released [place] [id number] est/kne ASHOK Russell I 05/23 Released [place] [id number] [place] JOHAN DELEON 05/27 [place] [facility] [id number] OSTEOAR THRITIS KNEE MELVIN VILLA 05/27 Released [place] OUTPATIENT [id number] walkin / bp JOHAN DELEON 05/28 [place]ased [place] [facility]) [place] OUTPATIENT [id number] blood pressur e check IRA TAN 05/29 [place]ased [place] [place] [facility] [id number] ADAN Ramos 05/29 [place] [facility] [place] OUTPATIENT [id number] walk-in bp JOHAN DLEEON 05/30 [place]ased [place] Limitations [place] Red) [place] OUTPATIENT [id number] WALK IN FOR BP CHECK JOHAN DELEON 05/31 [place]ased [place]o Limitations [place] [id number] WALK IN FOR BP CHECK SAUNDRA LEE 06/01 [place]ased [place] [place] [facility] [id number] ADAN Ramos 06/03 [place] [place] [id number] ADAN Ramos 06/05 [place] [place] [place] OUTPATIENT [id number] walk-in / mri results ADRIENNE JOHAN Jass 06/07 [place]ased [place] [id number] ADAN Ramos 06/10 [place] [place] [id number] DAYAN MOSES 06/12 [place] [id number] ADAN Ramos 06/17 [place] [place] [place] [id number] acl fitting IRA AZEVEDO 06/18 [place] [id number] ADAN Ramos 06/19 [place] [place] [place]Pul[place] [id number] arsenio william RAFIQ TEJA VINCENTKYAW 06/20 [place] OUTPATIENT [id number] FLB YOLY CHAVEZ 06/25 [place] OUTPATIENT [id number] walk-in /knee JOHAN DELEON 07/09 [place]ased [place] [id number] est/ASHOK Chan I 07/12 [place]ased [place]) [place] [id number] FLB SAVANNAH SALGADO 07/18 [place] [id number] narsum request for left knee djd ALLEN MELVIN A 07/26 [place] TELE CONSULT [id number] ALLEN MELVIN A 08/05 [place]LE CONS[place] [id number] no show ASHOK ESPARZA I 08/12 [place] [id number] OBESITY SHERIDAN BERGERON 08/27 [place]ul[place] [id number] RAFIQ TEJA MELISAKYAW 09/13 [place] [facility] [place] OUTPAT[place] [id number] FLU SHOT IRA ENRIQUE 10/11 [place] OUTPATIENT [id number] NEW PT IRA ENRIQUE 10/11 [place] OUTPATIENT [id number] initial intake LYUDMILA BEDOLLA 10/11 [place]ased with [place] [place] OUTPATIENT [id number] HIGH BLOOD PRESSUR E JOHAN DELEON 10/16 [place] [place] OUTPATIENT [id number] Initial CM Meeting DIAMOND ALANIZ 10/18 Released [place] OUTPATIENT [id number] Weekly CM meeting DIAMOND ALANIZ 10/22 Released [place] [id number] BACK/NE CK CLASS OSCAR GRIFFIN 10/23 [place] [facility] [place] OUT[place]IENT [id number] F/U/BLO OD PRESSUR E/PER CM/(CRH ) SERENE LINARES L 10/24 [place] OUTPATIENT [id number] Wkly CEDRIC Meeting DIAMOND ALANIZ 10/29 Released with [place] [facility] [place] OUTPATIENT [id number] BP CHECK SERENE LINARES L 10/29 [place] [facility] [place] OUTPATIENT [id number] BACK PAIN/(C RH) SERENE LINARES 10/30 [place] OUT[place]IENT [id number] BP check SERENE LINARES 10/30 Released w/o Limitations [place] [place] [facility] OUTPATIENT [id number] BLOOD PRESSUR E CHECK SERENE LINARES L 10/31 [place]ased [place] [place] [place] [facility] [place] OUTPATIENT [id number] Routine eye exam DEB HERNANDEZ 10/31 [place]itations [place] [place] [facility] OUTPATIENT [id number] BP CHECK JARVISDRNADINE SANTIAGOA L 11/01 [place]ased [place] [place] [facility] OUTPATIENT [id number] BP CHECK MCKENDRJACK , SERENE L 11/07 [place]itations [place] [place] OUTPATIENT [id number] Wkly CM Meeting DIAMOND ALANIZ 11/07 Released with Work/Duty [place] [place] [id number] 2ND OPIONIO N FROM DR.JOHN HERNANDEZ. pT HAS HAD mri DONE SEAN FOREMAN 11/13 [place] [id number] Cane fitting and instruc tions. EVANGELINA MCKINLEY 11/13 Released with Work/D[place] OUTPATIENT [id number] Wkly CM Meeting DIAMOND ALANIZ 11/14 Released with Work/[place]uty [place] OUTPATIENT [id number] BLOOD PRESSUR E CHECK SERENE LINARES Jass 11/18 [place]itations [place] [id number] BACKNIRMAL PEREZ 11/18 [place] [place] [facility] OUTPATIENT [id number] BLOOD PRESSUR E SERENE BEAN L 11/19 [place]ased [place]itations [place] OUTPATIENT [id number] Wkly CM Meeting DIAMOND ALANIZ 11/19 Released with Work/D[place] [place] [facility] OUTPATIENT [id number] med concern /sdw VIJAY SERENE L 11/21 [place]itations [place] TELE CONSULT [id number] f/u call/Re ab to [place] HUNG Herbert 11/27 [place] [place] OUTPATIENT [id number] Wkly CM Meeting DIAMOND ALANIZ 12/04 Released with Work/D[place] TELE CONSULT [id number] no-show DONNY HWANG 12/06 [place] [place]PATIENT [id number] Vamsi Meeting DIAMOND ALANIZ 12/10 Released with Work/Duty [place]itations [place] [place] [place] [facility] OUTPATIENT [id number] med refills per SERENE Coffman 01/21 [place]ased w[place]o Limitations [place] [facility] Outpatient Encounter [id number] [id number] CIRO ANN 01/10 [facility] OFFICE O/P EST MOD 30 MIN [id number] Diagnos is: ICD-10- CM E11.9 Type 2 diabete s mellitu s without complic ations MARAH JACINTO 01/28 [facility] INTRAORAL PERIAPICAL FIRST [id number] Diagnos is: ICD-10- CM Z01.20 Encount er for dental exam and cleanin g w/o abnorma l finding s KURT CROWLEY 02/27 [facility] END THXPY BICUSPID TOOTH [id number] [id number] Diagnos is: ICD-10- CM Z01.20 Encount er for dental exam and cleanin g w/o abnorma l finding s KURT CROWLEY 03/13 [facility] Outpatient Encounter [id number] [id number] CARIE VALENCIA GGShruthi 04/04 [facility] INTRAORAL PERIAPICAL FIRST [id number] [id number] Diagnos is: ICD-10- CM Z01.20 Encount er for dental exam and cleanin g w/o abnorma l finding s KURT CROWLEY 06/13 [facility] Outpatient Encounter [id number] [id number] 06/27 [facility] Outpatient Encounter [id number] [id number] GORMANEUGENIO MCDANIEL L 07/02 [facility] Outpatient Encounter [id number] [id number] 07/13 [facility] Outpatient Encounter [id number] [id number] 07/28 [facility] FIXED PROSTHODON TIC PROC [id number] [id number] Diagnos is: ICD-10- CM Z01.20 Encount er for dental exam and cleanin g w/o abnorma l finding s KURT CROWLEY 08/05 [facility] FIXED PROSTHODON TIC PROC [id number] [id number] Diagnos is: ICD-10- CM Z01.20 Encount er for dental exam and cleanin g w/o abnorma l finding s KURT CROWLEY 08/15 [facility] Outpatient Encounter [id number] [id number] 08/30 [facility] Outpatient Encounter [id number] [id number] 09/11 [facility] CORE BUILD-UP INCL ANY PINS [id number] [id number] Diagnos is: ICD-10- CM Z01.20 Encount er for dental exam and cleanin g w/o abnorma l finding s KURT CROWLEY 09/16 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 OFFICE O/P EST MOD 30 MIN [id number] [id number] Diagnos is: ICD-10- CM E11.42 Type 2 diabete s mellitu s with diabeti c polyneu ropathy MARAH JACINTO BY Juanis 10/20 [facility] OFF/OP EST MAY X REQ PHY/QHP [id number] [id number] Diagnos is: ICD-10- CM I10 Essenti al (primar y) hyperte nsion MARAH JACINTO BY R 10/28 [facility] Outpatient Encounter [id number] [id number] VU,JOSEPHINE D 11/10 [facility] EMERGENCY DEPT VISIT LOW MDM 72446-4.65 [id number] Diagnos is: ICD-10- CM J02.9 Acute pharyng itis, unspeci fied VU,JOSEPHINE D 11/10 [facility] Outpatient Encounter [id number] [id number] VU,JOSEPHINE D 11/10 [facility] Outpatient Encounter [id number] [id number] 11/20 [facility] Outpatient Encounter [id number] [id number] 12/04 [facility] Outpatient Encounter [id number] [id number] 12/16 [facility] Outpatient Encounter [id number] [id number] EUGENIO GORMAN L 12/18 [facility] OFF/OP CNSLTJ NEW/EST MOD 40 [id number] [id number] Diagnos is: ICD-10- CM M54.50 Low back pain, unspeci fied TERESE GAUTHIER TTHEW J 12/19 [facility] Outpatient Encounter [id number] [id number] TERESE GAUTHIER TTHEW J 12/19 [facility] Outpatient Encounter [id number] [id number] 01/08 [facility] Outpatient Encounter [id number] [id number] 01/08 [facility] Outpatient Encounter [id number] [id number] 01/09 [facility] Outpatient Encounter [id number] [id number] KURT CROWLEY 01/10 [facility] Outpatient Encounter [id number] [id number] 01/14 [facility] Outpatient Encounter [id number] [id number] 01/15 [facility] Outpatient Encounter [id number] [id number] 01/19 [facility] Outpatient Encounter [id number] [id number] TERESE SILVERMANENIA A 03/24 [facility] Outpatient Encounter [id number] [id number] 03/26 [facility] Outpatient Encounter [id number] [id number] 03/26 [facility] OFFICE O/P EST MOD 30 MIN [id number] [id number] Diagnos is: ICD-10- CM E11.9 Type 2 diabete s mellitu s without complic FRANKLIN Spencer 03/26 [facility] Outpatient Encounter [id number] [id number] 03/26 [facility] POS AIRWAY PRESSURE CPAP [id number] [id number] Diagnos is: ICD-10- CM G47.33 Obstruc tive sleep apnea (adult) ([facility]) HUBBARDJIMENEZ EMILIA Saul 03/26 [facility] Outpatient Encounter [id number] [id number] 03/26 [facility] [place] [id number] [id number] Diagnos is: ICD-10- CM E11.9 Type 2 diabete s mellitu s without complic ations FELICIA RIOS 03/27 [facility] TOPICAL FLUORIDE VARNISH [id number] [id number] Diagnos is: ICD-10- CM Z01.20 Encount er for dental exam and cleanin g w/o abnorma l finding s KURT CROWLEY 04/02 [facility] POS AIRWAY PRESSURE CPAP [id number] [id number] Diagnos is: ICD-10- CM G47.33 Obstruc tive sleep apnea (adult) ([facility]) HARSH HOOVER MD 04/09 [facility] PT EDUCATION NOC INDIVID [id number] [id number] Diagnos is: ICD-10- CM Z12.11 Encount er for screeni ng for maligna nt neoplas m of colon GUIGNON,CH RISTINA 04/09 [facility] Outpatient Encounter [id number] [id number] HARSH HOOVER MD 04/10 [facility] Outpatient Encounter [id number] [id number] 04/29 [facility] N [facility] SYNCH AUDIO-ONLY EST HIGH 40 [id number] [id number] Diagnos is: ICD-10- CM E11.42 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 FRANKLIN DO T 05/21 [facility] Outpatient Encounter [id number] [id number] 05/22 [facility] CUSTOM ABUTMENT [id number] [id number] Diagnos is: ICD-10- CM Z01.20 Encount er for dental exam and cleanin g w/o abnorma l finding s KURT CROWLEY 06/02 [facility] Outpatient Encounter [id number] [id number] 06/11 [facility] PH1 ASSMT&MGMT NQHP 5-10 [id number] [id number] Diagnos is: ICD-10- CM Z12.11 Encount er for screeni ng for maligna nt neoplas m of colon KOSTA,ARYAN LY A 06/15 [facility] Outpatient Encounter [id number] [id number] 06/19 [facility] OFFICE O/P EST SF 10 MIN [id number] [id number] Diagnos is: ICD-10- CM Z12.11 Encount er for screeni ng for maligna nt neoplas m of colon ELWING,CONG L E 06/22 [facility] ANES LWR INTST SCR COLSC [id number] [id number] Diagnos is: ICD-10- CM Z01.818 Encount er for other preproc edural examTATY Sherwood 06/22 [facility] Outpatient Encounter [id number] [id number] 06/22 [facility] Outpatient Encounter [id number] [id number] LANES,TRAC Y I 06/22 [facility] Procedures Combined list of: 1) Procedures from Department of [facility] Affairs facilities going back up to thelast 18 months, not all [place] non-surgical procedures are included; 2) All procedures from the Department of Defense facilities. Procedure Procedure Type Code Date Perfomer Comments Sourc e Patient Counseling Medical Management Individual Patient Patient Counseling Medical Management Individual Patient [id number] 2007 NIRMAL SALCIDO Physical Medicine Physical Therapy Evaluation Physical Medicine Physical Therapy Evaluation 16428 2007 NIRMAL SALCIDO Phys Therapy Education Self Care Training - Per 15 Minutes Phys Therapy Education Self Care Training - Per 15 Minutes [address]Supervised Services Provision Of Educational Supplies -Supervised Services Provision Of Educational Supplies 72956 2006 SERENE LINARES Ophthalmological New Patient Start Comprehensive Care Ophthalmological New Patient Start Comprehensive Care 12739 2006 DEB HERNANDEZ Determination Of Refractive State Determination Of Refractive State [address]Supervised Services Provision Of Educational Supplies -Supervised Services Provision Of Educational Supplies [address]Supervised Services Provision Of Educational Supplies -Supervised Services Provision Of Educational Supplies [address]Supervised Services Provision Of Educational Supplies -Supervised Services Provision Of Educational Supplies 57285 2006 OSCAR GRIFFIN Physical Medicine - Group Physical Therapy [facility] Physical Medicine - Group Physical Therapy Session 11006 2006 OSCAR GRIFFIN [facility] Medical Nutrition Therapy Group (2 or More Individual(s)) Medical Nutrition Therapy Group (2 or More Individual(s)) 68482 2006 SHERIDAN BERGERON [facility] ENT Services ENT Services [address]Supervised Group Educational Services 2006 HUNTER PEREZ Special Services Analysis Of Computerized Data Special Services Analysis Of Computerized Data [address]Supervised Services Provision Of Special Supplies -Supervised Services Provision Of Special Supplies 24689 2006 HUNTER PEREZ Audiometry Group Testing Audiometry Grou p Testing 05957 2006 HUNTER PEREZ Threshold Audiogram (Pure Tone) Threshold Audiogram (Pure Tone) [address]Supervised Services Provision Of Educational Supplies -Supervised Services Provision Of Educational Supplies 18849 2006 ASHOK ESPARZA I [facility] Physical Therapy: ___ Se ion Segments, 15 Minutes Each Physical Therapy: ___ Session Segments, 15 Minutes Each [id number] 2006 ASHOK ESPARZA Patient Counseling Medical Management Individual Patient Patient Counseling Medical Management Individual Patient 96736 2006 ASHOK ESPARZA I [facility] Physical Medicine Physical Therapy Re-Evaluation Physical Medicine Physical Therapy Re-Evaluation 08858 2006 ASHOK ESPARZA I [facility] Patient Counseling Medical Management Individual Patient Patient Counseling Medical Management Individual Patient 11835 2006 ADAN BUNN [facility] Physical Medicine - Group Physical Therapy Se ion Physical Medicine - Group Physical Therapy Session 21326 2006 ADAN BUNN Physical Medicine - Group Physical Therapy Se ion Physical Medicine - Group Physical Therapy Session 32664 2006 ADAN BUNN Patient Counseling Medical Management Individual Patient Patient Counseling Medical Management Individual Patient [address]Supervised Group Educational Services 2006 TEJA CONROY [facility] Knee orthosis, derotation, medial-lateral, anterior cruciate ligament, custom fabricated 2006 IRA AZEVEDO Left oleg sandoval.o. [facility] Patient Counseling Medical Management Individual Patient Patient Counseling Medical Management Individual Patient 04178 2006 ADAN BUNN [facility] Physical Medicine - Group Physical Therapy Se ion Physical Medicine - Group Physical Therapy Session 50010 2006 ADAN BUNN [facility] Patient Counseling Medical Management Individual Patient Patient Counseling Medical Management Individual Patient 33381 2006 ADAN BUNN [facility] Physical Medicine - Group Physical Therapy Se ion Physical Medicine - Group Physical Therapy Session 51993 2006 ADAN BUNN [facility] Patient Counseling Medical Management Individual Patient Patient Counseling Medical Management Individual Patient 84424 2006 ADAN BUNN [facility] Physical Medicine - Group Physical Therapy Se ion Physical Medicine - Group Physical Therapy Session 09788 2006 ADAN BUNN [facility] -Supervised Services Provision Of Educational Supplies -Supervised Services Provision Of Educational Supplies 72147 2006 JOHAN DELEON [facility] Physical Medicine - Group Physical Therapy Se ion Physical Medicine - Group Physical Therapy Session 35230 2006 ADAN BUNN [facility] Patient Counseling Medical Management Individual Patient Patient Counseling Medical Management Individual Patient 68064 2006 ADAN BUNN [facility] -Supervised Services Provision Of Educational Supplies -Supervised Services Provision Of Educational Supplies 21202 2006 ASHOK ESPARZA I [facility] Patient Counseling Medical Management Individual Patient Patient Counseling Medical Management Individual Patient 76584 2006 ASHOK ESPARZA I [facility] Physical Medicine Physical Therapy Re-Evaluation Physical Medicine Physical Therapy Re-Evaluation 38541 2006 ASHOK ESPARZA I [facility] Physical Therapy: ___ Se ion Segments, 15 Minutes Each Physical Therapy: ___ Session Segments, 15 Minutes Each 12996 2006 ASHOK ESPARZA I [facility] Knee orthosis, derotation, medial-lateral, anterior cruciate ligament, custom fabricated 2006 IRA AZEVEDO eval for ACL-K.O./ special order to return for final DoD Knee orthosis, elastic with joints, prefabricated, includes fitting and adjustment 2006 IRA AZEVEDO Hinged K.O. as temp until ACL-K.O. is available. [facility] Customized item (list in addition to code for basic item) 2006 IRA AZEVEDO customized [facility] Foot, arch support, removable, premolded, longitudinal, each 2006 IRA AZEVEDO Foot support [facility] Patient Counseling Medical Management Individual Patient Patient Counseling Medical Management Individual Patient [address]Supervised Services Provision Of Educational Supplies -Supervised Services Provision Of Educational Supplies 60554 2006 ASHOK ESPARZA Physical Therapy: ___ Se ion Segments, 15 Minutes Each Physical Therapy: ___ Session Segments, 15 Minutes Each 52276 2006 ASHOK ESPARZA Physical Medicine Physical Therapy Evaluation Physical Medicine Physical Therapy Evaluation 94356 2006 ASHOK ESPARZA I [facility] ENT Services ENT Services 79202 2006 [facility] Special Son Services Analysis Of Computerized Data Special Services Analysis Of Computerized Data 93847 [address] [facility]Supervised Group Educational Services 2006 [facility] Audiometry Group Testing Audiometry Grou p Testing 08532 [address] [facility] [address]Supervised Services Provision Of Special Supplies -Supervised Services Provision Of Special Supplies 74873 2006 [facility] Threshold Audiogram (Pure Tone) Threshold Audiogram (Pure Tone) 31785 2006 [facility] Compre ion bandage, roll [address]Supervised Services Provision Of Educational Supplies -Supervised Services Provision Of Educational Supplies [address]Supervised Services Provision Of Special Supplies -Supervised Services Provision Of Special Supplies 31733 2006 DONNY HWANG Patient Counseling Medical Management Individual Patient Patient Counseling Medical Management Individual Patient 43935 2006 DONNY HWANG [employer] Community Reintegration Training - Per 15 Min [employer] Community Reintegration Training - Per 15 Min 94444 2006 DONNY HWANG Physical Therapy: ___ Se ion Segments, 15 Minutes Each Physical Therapy: ___ Session Segments, 15 Minutes Each 86732 2006 DONNY HWANG [facility] Physical Medicine Physical Therapy Evaluation Physical Medicine Physical Therapy Evaluation 63916 2006 DONNY HWANG [facility] EDUCATION &TRAINING, PATIENT SELF-MGT QUALIFIED, NONPHYSICIAN HEALTH MOLD SWABBER USING STDIZED CURRICULUM, [id number] W THE PATIENT (COULD INCL CAREGIVER/FAMILY) EA 30 MIN; INDIVIDUAL PATIENT 2007 [facility] SELF-CARE/HOME MANAGMENT TRAIN (EG,ACT OF DAILY LIVING (ADL) &COMPENSAT TRAIN,MEAL PREPARATION,SAFETY PROCS,AND INSTRUCT IN USE OF ASST TECHNOLOGY DEV/ADPT EQUIP) DIR ONE-ON-ONE CONT,EA 15 MINUTES 2007 [facility] EDUCATIONAL SUPPLIES, SUCH BOOKS, TAPES, AND PAMPHLETS, FOR THE PATIENT'S EDUCATION AT COST TO PHYSICIAN OR OTHER QUALIFIED HEALTH MOLD SWABBER 2006 [facility] DETERMINATION OF REFRACTIVE STATE 2006 [facility] EDUCATIONAL SUPPLIES, SUCH BOOKS, TAPES, AND PAMPHLETS, FOR THE PATIENT'S EDUCATION AT COST TO PHYSICIAN OR OTHER QUALIFIED HEALTH MOLD SWABBER 2006 [facility] OCCUPATIONAL THERAPY EVALUATION 2006 [facility] EDUCATION &TRAINING, PATIENT SELF-MGT QUALIFIED, NONPHYSICIAN HEALTH MOLD SWABBER USING STDIZED CURRICULUM, [id number] W THE PATIENT (COULD INCL CAREGIVER/FAMILY) EA 30 MIN; INDIVIDUAL PATIENT 2006 [facility] IMMUNIZATION ADMINISTRATION (INCLUDES PERCUTANEOUS, INTRADERMAL, SUBCUTANEOUS, OR INTRAMUSCULAR INJECTIONS); 1 VACCINE (SINGLE OR COMBINATION VACCINE/TOXOID) 2006 [facility] WEIGHT MANAGEMENT CLASSES, NON-PHYSICIAN PROVIDER, PER SESSION 2006 [facility] EDUCATIONAL SUPPLIES, SUCH BOOKS, TAPES, AND PAMPHLETS, FOR THE PATIENT'S EDUCATION AT COST TO PHYSICIAN OR OTHER QUALIFIED HEALTH MOLD SWABBER 2006 [facility] UNLISTED OTORHINOLARYNGOLOGICAL SERVICE OR PROCEDURE 2006 [facility] PHYS/OTH QUALIFIED HEALTH MOLD SWABBER QUALIFIED,EDUCATION,TRAIN ,LICENSURE/REGULATION (WHEN APPLICABLE) EDUC SER RENDERED TO PATS IN A GRP SETTING (EG,,OBESITY,OR DIABETIC INSTRUCT) 2006 [facility] EDUCATION &TRAINING, PATIENT SELF-MGT QUALIFIED, NONPHYSICIAN HEALTH MOLD SWABBER USING STDIZED CURRICULUM, [id number] W THE PATIENT (COULD INCL CAREGIVER/FAMILY) EA 30 MIN; INDIVIDUAL PATIENT 2006 [facility] KNEE ORTHOSIS (KO), DEROTATION, MEDIAL-LATERAL, ANTERIOR CRUCIATE LIGAMENT, CUSTOM FABRICATED 2006 [facility] EDUCATION &TRAINING, PATIENT SELF-MGT QUALIFIED, NONPHYSICIAN HEALTH MOLD SWABBER USING STDIZED CURRICULUM, [id number] W THE PATIENT (COULD INCL CAREGIVER/FAMILY) EA 30 MIN; INDIVIDUAL PATIENT 2006 [facility] INFUSION, NORMAL SALINE SOLUTION , 1000 CC 2006 [facility] EDUCATION &TRAINING, PATIENT SELF-MGT QUALIFIED, NONPHYSICIAN HEALTH MOLD SWABBER USING STDIZED CURRICULUM, [id number] W THE PATIENT (COULD INCL CAREGIVER/FAMILY) EA 30 MIN; INDIVIDUAL PATIENT 2006 [facility] EDUCATION &TRAINING, PATIENT SELF-MGT QUALIFIED, NONPHYSICIAN HEALTH MOLD SWABBER USING STDIZED CURRICULUM, [id number] W THE PATIENT (COULD INCL CAREGIVER/FAMILY) EA 30 MIN; INDIVIDUAL PATIENT 2006 [facility] EDUCATION &TRAINING, PATIENT SELF-MGT QUALIFIED, NONPHYSICIAN HEALTH MOLD SWABBER USING STDIZED CURRICULUM, [id number] W THE PATIENT (COULD INCL CAREGIVER/FAMILY) EA 30 MIN; INDIVIDUAL PATIENT 2006 [facility] EDUCATIONAL SUPPLIES, SUCH BOOKS, TAPES, AND PAMPHLETS, FOR THE PATIENT'S EDUCATION AT COST TO PHYSICIAN OR OTHER QUALIFIED HEALTH MOLD SWABBER 2006 [facility] EDUCATION &TRAINING, PATIENT SELF-MGT QUALIFIED, NONPHYSICIAN HEALTH MOLD SWABBER USING STDIZED CURRICULUM, [id number] W THE PATIENT (COULD INCL CAREGIVER/FAMILY) EA 30 MIN; INDIVIDUAL PATIENT 2006 [facility] EDUCATIONAL SUPPLIES, SUCH BOOKS, TAPES, AND PAMPHLETS, FOR THE PATIENT'S EDUCATION AT COST TO PHYSICIAN OR OTHER QUALIFIED HEALTH MOLD SWABBER 2006 [facility] KNEE ORTHOSIS, ELASTIC WITH JOINTS, PREFABRICATED ITEM THAT HAS BEEN TRIMMED, BENT, MOLDED, ASSEMBLED, OR OTHERWISE CUSTOMIZED TO FIT A SPECIFIC PATIENT BY AN INDIVIDUAL WITH EXPERTISE 2006 [facility] EDUCATIONAL SUPPLIES, SUCH BOOKS, TAPES, AND PAMPHLETS, FOR THE PATIENT'S EDUCATION AT COST TO PHYSICIAN OR OTHER QUALIFIED HEALTH MOLD SWABBER 2006 [facility] UNLISTED OTORHINOLARYNGOLOGICAL SERVICE OR PROCEDURE 2006 [facility] COMPRESSION BANDAGE, ROLL 2006 [facility] Social History Combined list of available smoking, tobacco, and other social history 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 Social History Type Response Date Comment Sour e Tobacco smoking status NHIS VA-TOBACCO NEVER USED 08/02/2023 [facility] History of tobacco use VA-TOBACCO NEVER USED 04/28/2022 [facility] History of tobacco use VA-TOBACCO NEVER USED 02/04/2021 [facility] History of tobacco use VA-TOBACCO NEVER USED 07/07/2019 [facility] History of tobacco use VA-TOBACCO NEVER USED 12/11/2018 [facility] History of tobacco use LIFETIME NON-USER OF TOBACCO 05/29/2017 [facility] History of tobacco use LIFETIME NON-USER OF TOBACCO 11/29/2016 [facility] History of tobacco use LIFETIME NON-USER OF TOBACCO 04/29/2015 [facility] History of tobacco use LIFETIME NON-USER OF TOBACCO 06/29/2014 [facility] History of tobacco use LIFETIME NON-USER OF TOBACCO 07/10/2013 [facility] History of tobacco use LIFETIME NON-USER OF TOBACCO 05/24/2009 [facility] History of tobacco use LIFETIME TOBACCO NON-USER 03/11/2008 [facility] This section is an empty social history section. DoD Plan of Care List of future care activities from [facility] facilities. Additional future care activities may be listed in the Assessment and Plan section. Date/Time Care Activity Care Activity Detail Facili ty 07/09/2025 AMBULATORY - NONE AMBULATORY - NONE [facility]
--- OUTSIDE RECORDS SUMMARY | 2025-06-27 10:24 | XMS_ITS | Encounter Summary ---
Author Name [facility] [place] [facility] [place] Address [address] [place] [address] Care Team Providers Care Department Assistant Name Role Phone PANFILO DOAH Primary Care [...] FEP BASIC FAM April 03, 2010 [id number] [phone] FIORDALIZA DÍAZ PATIENT ANTHEM [place] FEP PREFERRED PROVIDER ORGANIZAT ION (PPO) FEP BASIC FAM April 03, 2010 112 [id number] [phone] FIODRALIZA DÍAZ PATIENT ANTHEM BC[place] FEP PREFERRED PROVIDER ORGANIZAT ION (PPO) FEP BASIC FAM April 03, 2010 112 [id number] [phone] FIORDALIZA DÍAZ PATIENT ANTHEM FEP PREFERRED PROVIDER ORGANIZAT ION (PPO) FEP BASIC FAMIL Y April 03, 2010 [id number] FIORDALIZA DÍAZ PATIENT ANTHEM FEP PREFERRED PROVIDER ORGANIZAT ION (PPO) FEP BASIC FAMIL Y April 03, 2010 112 [id number] [phone] FIORDALIZA DÍAZ PATIENT BC BS [place] FEP PREFERRED PROVIDER ORGANIZAT ION (PPO) FEP-B ASIC- PPO April 03, 2010 [id number] FIORDALIZA DÍAZ PATIENT [place] FEP PREFERRED PROVIDER ORGANIZAT ION (PPO) FEP BASIC FAM April 03, 2010 112 [id number] [phone] BOXMARCON PATIENT CAREMARK ([id number]) PRESCRIPT ION FEP April 03, 2010 [id number] BOX,FIORDALIZA PATIENT CAREMARK ([id number]) PRESCRIPT ION FEP April 03, 2010 [id number] BOX,FIORDALIZA PATIENT [place] FEP ([id number]) PRESCRIPT ION FEPRX April 03, 2010 [id number] [phone] BOX,FIORDALIZA PATIENT [place] FEP ([id number]) PRESCRIPT ION FEPRX April 03, 2010 [id number] [phone] BOX,FIORDALIZA PATIENT [place] FEP [id number] PRESCRIPT ION FEP RX April 03, 2010 [id number] [phone] BOX,FIORDALIZA PATIENT [place] FEP [id number] PRESCRIPT ION FEP RX April 03, 2010 [id number] [phone] FIORDALIZA DÍAZ PATIENT Selected Encounter This section includes the information on record at [place] for the Encounter. Date/Time Encounter Type Encounter Description Reason Provider Source Jan 10, 2025 09:40 AM Outpatient Encounter [facility] Encounter Template Text not used by [place] Plan of Treatment: Future Appointments (+ 6 months) and Future Tests (+/- 45 days) The Plan of Treatment section includes future care activities for the patient from all [place] treatmentfacilities. This section includes future appointments and future orders which are active, pending or scheduled. Future Appointments This section includes appointments that were scheduled to occur 6 months from the date of the Encounter, up to a maximum of 20 appointments. The data comes from all [place] treatment facilities. Appointment Date/Time Appointment Type Appointme nt Facility Name March 26, 2025 09:30 AM AMBULATORY - MEDICINE [facility] March 27, 2025 08:30 AM AMBULATORY - NONE [facility] April 02, 2025 01:00 PM AMBULATORY - NONE [facility] April 09, 2025 09:00 AM AMBULATORY - MEDICINE [facility] May 21, 2025 03:30 PM AMBULATORY - MEDICINE [facility] May 28, 2025 09:00 AM AMBULATORY - NONE [facility] Jun 02, 2025 12:00 PM AMBULATORY - NONE [facility] Jun 22, 2025 07:15 AM AMBULATORY - MEDICINE [facility] Jun 25, 2025 01:00 PM AMBULATORY - NONE [facility] Jul 09, 2025 11:00 AM AMBULATORY - NONE [facility] Social History: Smoking Status (Most current) and Tobacco Use (All prior to encounter date) This section includes the most current, and the historical, smoking and tobacco- related health factors from the [place] facility where the Encounter took place. Current Smoking Status This section includes the most current smoking, or tobacco-related health factor, from the [place] facility where the Encounter took place. Date/Time Current Smoking Status Comment Vicenta ity Apr 29, 2015 02:46 PM LIFETIME NON-USER OF TOBACCO [facility] Tobacco Use History This section includes a history of the smoking, or tobacco-related health factors, that were collected on or before the date of the Encounter. The data comes from the [place] facility where the Encounter took place. Date/Time Smoking Status/Tobacco Use Comment F acility Jun 29, 2014 02:52 PM LIFETIME NON-USER OF TOBACCO [facility] Jul 10, 2013 02:20 PM LIFETIME NON-USER OF TOBACCO [facility] May 24, 2009 08:42 AM LIFETIME NON-USER OF TOBACCO [facility] Encounter Notes: All associated encounter notes This section contains the clinical notes associated to the Encounter. Date/Time Encounter Note(s) Provider Source Jan 10, 2025 09:40 AM LETTERS: LOCAL TITLE: COMMUNITY CARE-REQUEST FOR SERVICES (RFS) LETTER ST STANDARD TITLE: LETTERS DATE OF NOTE: JAN 10, 2025@09:40 ENTRY DATE: JAN 10, 2025@09:40:36 AUTHOR: TOW,KYA D EXP COSIGNER: URGENCY: STATUS: COMPLETED [facility] [address] [place] [address] [facility] [address] [place] [address] [place] [address] Dear Provider, Information: Patient Name: FIORDALIZA DÍAZ Date of : Dec [facility] has received the request for D6057 Custom fabricated abut-includes placemnt #3 D6058 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 Upon review, the following determination has been made: Service has been denied: Care has been deemed clinically inappropriate. Reason: Rationale for Decision (choose all that apply): (clinical justification for treatment denials) * [facility] Should you have questions, please contact us at [phone] to speak with a patient medicine and health service manager. As a reminder, if applicable, return medical records within 30 days for routine services. Sincerely, [facility]
--- OUTSIDE RECORDS SUMMARY | 2025-06-27 10:24 | XMS_ITS | Encounter Summary ---
Author Name [facility] [place] [facility] [place] Address [address] [place] [address] Care Team Providers Care Behavioral Consultant Name Role Phone CECY DO Primary Care [...] FEP BASIC FAM April 03, 2010 [id number] [phone] FIORDALIZA DÍAZ PATIENT ANTHEM [place] FEP PREFERRED PROVIDER ORGANIZAT ION (PPO) FEP BASIC FAM April 03, 2010 112 [id number] [phone] FIORDALIZA DÍAZ PATIENT [place] FEP PREFERRED PROVIDER ORGANIZAT ION (PPO) FEP BASIC FAM April 03, 2010 112 [id number] [phone] FIORDALIZA DÍAZ PATIENT ANTHEM FEP PREFERRED PROVIDER ORGANIZAT ION (PPO) FEP BASIC FAMIL Y April 03, 2010 112 [id number] FIORDALIZA DÍAZ PATIENT ANTHEM FEP PREFERRED PROVIDER ORGANIZAT ION (PPO) FEP BASIC FAMIL Y April 03, 2010 112 [id number] [phone] FIORDALIZA DÍAZ PATIENT BC BS [place] FEP PREFERRED PROVIDER ORGANIZAT ION (PPO) FEP-B ASIC- PPO April 03, 2010 [id number] BOX,FIORDALIZA PATIENT [place] FEP PREFERRED PROVIDER ORGANIZAT ION (PPO) FEP BASIC FAM April 03, 2010 112 [id number] [phone] BOX,FIORDALIZA PATIENT CAREMARK ([id number]) PRESCRIPT ION FEP April 03, 2010 [id number] BOX,FIORDALIZA PATIENT CAREMARK ([id number]) PRESCRIPT ION FEP April 03, 2010 [id number] BOX,FIORDALIZA PATIENT [place] FEP ([id number]) PRESCRIPT ION FEPRX April 03, 2010 [id number] [phone] BOX,FIORDALIZA PATIENT [place] FEP ([id number]) PRESCRIPT ION FEPRX April 03, 2010 [id number] [phone] BOX,FIORDALIZA PATIENT [place] FEP [id number] PRESCRIPT ION FEP RX April 03, 2010 [id number] [phone] BOX,FIORDALIZA PATIENT [place] FEP [id number] PRESCRIPT ION FEP RX April 03, 2010 [id number] [phone] BRE,FIORDALIZA PATIENT Selected Encounter This section includes the information on record at [place] for the Encounter. Date/Time Encounter Type Encounter Description Reason Provider Source Jun 22, 2025 07:20 AM ANES LWR INTST SCR COLSC NON-OR ANESTHESIA PROCEDURES ICD-10-CM Z01.818 Encounter for other preprocedural examination GUNNER DENNEY Monique Encounter Template Text not used by [place] Assessments - Encounter Diagnoses This section includes the primary and secondary diagnoses documented for the Encounter. Date/Time Primary/Secondary Diagnosis Diagnosis Name Provider Source Jun 26, 2025 12:43 PM PRIMARY Encounter for other preprocedural examination BRYAN DENNEY [facility] Plan of Treatment: Future Appointments (+ 6 months) and Future Tests (+/- 45 days) The Plan of Treatment section includes future care activities for the patient from all [place] treatmentfacilities. This section includes future appointments and future orders which are active, pending or scheduled. Future Appointments This section includes appointments that were scheduled to occur 6 months from the date of the Encounter, up to a maximum of 20 appointments. The data comes from all [facility]. Appointment Date/Time Appointment Type Appointme nt Facility Name Jun 25, 2025 01:00 PM [facility] Jul 09, 2025 11:00 AM AMBULATORY - NONE [facility] Jul 30, 2025 01:30 PM AMBULATORY - NONE [facility] Oct 01, 2025 09:30 AM AMBULATORY - MEDICINE [facility] Active, Pending, and Scheduled Orders This section includes a listing of several types of active, pending, and scheduled orders, including clinic medications orders, diagnostic test orders, procedure orders and consult orders; where the start date of the order is 45 days before the date of the Encounter or 45 days after the date of theEncounter. The data comes from all [facility]. Test Date/Time Test Type Test Details Facility Name Jun 22, 2025 12:00 AM Laboratory - Chemi stry Order OCCULT BLOOD FIT X1 SCREEN STOOL FECES SP [facility] Jul 30, 2025 12:00 AM Imaging - Magnetic Resonance Imaging (MRI) Order MRI SPINE LUMBAR W/O CONT [facility] Jul 30, 2025 12:00 AM Imaging - Magnetic Resonance Imaging (MRI) Order MRI SPINE CERVICAL W/O CONT [facility] Lab Results: +/- 30 days [...] Type Comment Jun 22, 2025 07:28 AM [facility] GLUCOSE,BLOOD-poct (STL) BLOOD Specimen Type: BLOOD Comment: Test Performed by: [id number] Meter #: [id number] Ordering Provider: RADHA JAMES Report Released Date/Time: Jun 22, 2025 07:31 AM Reporting Lab: [address] [place] [address] Performing Lab: [facility] [address] [address] GLUCOSE,BLOOD-poct (STL) 133 mg/dL H 72-99 Social History: Smoking Status (Most current) and Tobacco Use (All prior to encounter date) This section includes the most current, and the historical, smoking and tobacco- related health factors from the [facility] where the Encounter took place. Current Smoking Status This section includes the most current smoking, or tobacco-related health factor, from the [place] facility where the Encounter took place. Date/Time Current Smoking Status Comment Facil ity Apr 29, 2015 02:46 PM LIFETIME NON-USER OF TOBACCO [facility] Tobacco Use History This section includes a history of the smoking, or tobacco-related health factors, that were collected on or before the date of the Encounter. The data comes from the [place] facility where the Encounter took place. Date/Time Smoking Status/Tobacco Use Comment F acility Jun 29, 2014 02:52 PM LIFETIME NON-USER OF TOBACCO [facility] Jul 10, 2013 02:20 PM LIFETIME NON-USER OF TOBACCO [facility] May 24, 2009 08:42 AM LIFETIME NON-USER OF TOBACCO [facility] Encounter Notes: All associated encounter notes This section contains the clinical notes associated to the Encounter. Date/Time Encounter Note(s) Provider Source Jun 22, 2025 08:03 AM ANESTHESIOLOGY POS T OPERATIVE E & M NOTE: LOCAL TITLE: ANESTHESIA POST-OP STL STANDARD TITLE: ANESTHESIOLOGY POST OPERATIVE E & M NOTE DATE OF NOTE: JUN 22, 2025@08:03 ENTRY DATE: JUN 22, 2025@08:03:42 AUTHOR: TATY DENNEY EXP COSIGNER: URGENCY: STATUS: COMPLETED Anesthesia Post-Anesthetic After patient was in the endo room , he decided not to have the procedure. Per pts wishes no procedure was done and pt was discharged. /caroline/ TATY DENNEY MD Staff Physician, Anesthesiology Signed: 06/22/2025 08:05 TATY DENNEY [facility] Jun 22, 2025 07:28 AM ANESTHESIOLOGY PRE OPERATIVE E & M NOTE: LOCAL TITLE: ANESTHESIA PRE-OP STL STANDARD TITLE: ANESTHESIOLOGY PRE OPERATIVE E & M NOTE DATE OF NOTE: JUN 22, 2025@07:28 ENTRY DATE: JUN 22, 2025@07:28:08 AUTHOR: TATY DENNEYIGNER: URGENCY: STATUS: COMPLETED ANESTHESIA PRE-OP STL Has ADDENDA Pre-Operative Diagnosis: Colon Cancer screening Operation proposed: Colonoscopy Vitals: Age: 44 Weight: 299.4 lb [135.81 kg] (03/26/2025 09:33) Height: 72 in [182.9 cm] (03/26/2025 09:33) Blood Pressure: 142/88 (03/26/2025 10:20) Pulse: 90 (03/26/2025 09:33) Temp: 98 F [36.7 C] (03/26/2025 09:33) Resp: 16 (03/26/2025 09:33) SpO2: 97% (03/26/2025 09:33) BMI: 40.7 Allergies: METHADONE, METFORMIN Medications: ACTIVE INPT MEDS: No medications found. Active Outpatient Medications (including Supplies): Active Outpatient Medications Status = 1) ALLOPURINOL 100MG TAB TAKE ONE TABLET BY MOUTH ONCE A DAY ACTIVE FOR GOUT. TAKE WITH PLENTY OF WATER. 2) ATORVASTATIN CALCIUM 40MG TAB TAKE ONE-HALF TABLET BY MOUTH ACTIVE EVERY EVENING FOR CHOLESTEROL. REPORT ANY UNEXPLAINED MUSCLE PAIN/WEAKNESS TO PROVIDER. 3) BISACODYL 5MG EC TAB TAKE TWO TABLETS BY MOUTH ONE TIME TAKE ACTIVE BISACODYL TABLETS AT 4PM ON AFTERNOON PRIOR TO TEST. CALL [phone] WITH ANY QUESTIONS ABOUT THESE INSTRUCTIONS. MAIL Indication: Bowel Emptying 4) CHOLECALCIF 50MCG (D3-2,000UNIT) TAB TAKE TWO TABLETS BY ACTIVE MOUTH ONCE A DAY Indication: FOR VITAMIN D DEFICIENCY 5) COLON ELECTROLYTE LAVAGE PWD FOR SOLN MIX AND DRINK CONTENTS ACTIVE OF BOTTLE BY MOUTH DIRECTED FILL WITH WATER TO THE LINE INDICATED ON CONTAINER. DRINK DIRECTED. (THE DAY BEFORE YOUR TEST ONLY DRINK CLEAR LIQUIDS-NO SOLID FOOD! TAKE THE BISACODYL TABLETS AT 4PM AND MIX THE CONTAINER WITH WATER AND REFRIGERATE. AT 7PM DRINK HALF OF THE CONTAINER. REFRIGERATE OVERNIGHT. COMPLETE CONTAINER 3 HRS BEFORE LEAVING HOME FOR TEST. READ YOUR INSTRUCTIONS!) Indication: FOR BOWEL EMPTYING 6) CYANOCOBALAMIN 500MCG TAB TAKE ONE TABLET BY MOUTH ONCE A ACTIVE DAY FOR B12 SUPPLEMENTATION Indication: FOR VITAMIN B12 SUPPLEMENTATION 7) DICLOFENAC NA 1% TOP GEL APPLY 4 GM TO AFFECTED AREA(S) FOUR ACTIVE TIMES A DAY /INFLAMMATION; NOT MORE THAN 16 GRAMS DAILY TO ANY LOWER EXTREMITY JOINT. NOT MORE THAN 8 GRAMS DAILY TO ANY UPPER EXTREMITY JOINT. MAX 32GM/DAY OVER ALL JOINTS. (MEASURE DOSE WITH RULER ATTACHED INSIDE BOX) Indication: FOR PAIN 8) DULOXETINE HCL 30MG EC CAP TAKE ONE CAPSULE BY MOUTH ONCE A ACTIVE/PARKED DAY DO NOT ABRUPTLY DISCONTINUE MEDICATION. Indication: FOR NERVE PAIN 9) EMPAGLIFLOZIN 25MG TAB TAKE ONE-HALF TABLET BY MOUTH ONCE A ACTIVE DAY 10) GABAPENTIN 100MG CAP TAKE ONE CAPSULE BY MOUTH THREE TIMES A ACTIVE DAY Indication: FOR NERVE PAIN 11) HYDROPHILIC (EQV EUCERIN) TOP CREAM APPLY LIGHTLY TO ACTIVE AFFECTED AREA(S) ONCE A DAY FOR DRY SKIN. (EXTERNAL USE ONLY) 12) INSULIN SYRINGE 0.5ML 30G 12MM USE 1 SYRINGE UNDER THE SKIN ACTIVE ONCE A DAY TO USE WITH INSULIN Indication: FOR DIABETES 13) INSULIN,ASPART(EQV-NOVLG)100 UN/ML FLXPEN INJECT 10 UNITS ACTIVE UNDER THE SKIN THREE TIMES A DAY BEFORE MEALS FOR BLOOD SUGAR CONTROL. ADMINISTER 10 MINUTES BEFORE FOOD DIRECTED. REFRIGERATE UN-OPENED PENS. DISCARD CARTRIDGE 28 DAYS AFTER OPENING. 14) INSULIN,GLARGINE,HUMAN 100 UNIT/ML INJ INJECT 42 UNITS UNDER ACTIVE THE SKIN ONCE A DAY TO CONTROL BLOOD SUGAR. ADMINISTER AT SAME TIME EACH DAY DIRECTED. DISCARD ANY VIAL 28 DAYS AFTER OPENING. Indication: FOR DIABETES 15) LIDOCAINE 5% PATCH APPLY 1 PATCH TO SKIN SITE ONCE A DAY ACTIVE NEEDED APPLY PATCH AND PRESS FIRMLY FOR 10-15 SECONDS. KEEP ON FOR 12 HOURS THEN REMOVE PATCH FOR 12 HOURS. Indication: FOR LOCAL ANESTHESIA 16) LISINOPRIL 40MG TAB TAKE ONE AND ONE-HALF TABLETS BY MOUTH ACTIVE ONCE A DAY FOR HEART OR BLOOD PRESSURE Indication: FOR HIGH BLOOD PRESSURE 17) OMEPRAZOLE 40MG EC CAP TAKE ONE CAPSULE BY MOUTH EVERY ACTIVE MORNING BEFORE A MEAL TO LOWER STOMACH ACID. TAKE 30 MINUTES PRIOR TO FOOD. 18) SIMETHICONE 80MG CHEW TAB CHEW AND SWALLOW FOUR TABLETS BY ACTIVE MOUTH DIRECTED FOR TWO DOSES BEFORE GI PROCEDURE Indication: FOR GAS DISCOMFORT 19) SODIUM FLUORIDE 1.1% TOOTHPASTE USE DIRECTED BY MOUTH ACTIVE TWICE A DAY TOOTHPASTE (DO NOT SWALLOW) APPLY A PEA-SIZED AMOUNT OF THE PASTE TO A TOOTHBRUSH AND BRUSH THOROUGHLY FOR TWO MINUTES, AT MORNING AND AT NIGHT; SPIT, DO NOT RINSE. DO NOT EAT, DRINK, OR RINSE FOR 30 MINUTES AFTER USE. Indication: FOR DENTAL CARIES Active Non-VA Medications Status = 1) Non-VA ACETAMINOPHEN TAB BY MOUTH ACTIVE 2) Non-VA SEMAGLUTIDE 0.25MG/0.375ML INJ PEN 3ML 0.5MG UNDER ACTIVE THE SKIN EVERY WEEK 21 Total Medications Most Recent Labs/CXR/EKG Results HGB 15.8 g/dL 09/19/2024 09:11 HCT 47.9 % (09/19/24 09:11) PLT 215 10*3/uL 09/19/2024 09:11 WBC 5.3 10*3/uL (09/19/24 09:11) PT 12.8 sec H (06/23/23 22:30) No PTT EO data found INR VALUE 1.2 INR 06/23/2023 22:30 PROTIME 12.8 H sec 06/23/2023 22:30 SODIUM 138 mEq/L 09/19/2024 09:11 POTASSIUM 4.1 mEq/L 09/19/2024 09:11 CHLORIDE 104 mEq/L 09/19/2024 09:11 UREA NITROGEN 15.0 mg/dL 09/19/2024 09:11 CREATININE 1.06 mg/dL 09/19/2024 09:11 CALCIUM 9.1 mg/dL 09/19/2024 09:11 CARBON DIOXIDE 23 mEq/L 09/19/2024 09:11 GLUCOSE 126 H mg/dL 09/19/2024 09:11 EGFR (CKD-EPI 2020) 88.8 09/19/2024 09:11 ALBUMIN 4.2 g/dL 09/19/2024 09:11 HGA1C 6.9 H % 04/02/2025 14:20 ALKALINE PHOSPHATASE 82 U/L 09/19/2024 09:11 SGPT/ALT 24 U/L (09/19/24 09:11) SGOT/AST 20 U/L (09/19/24 09:11) TOTAL BILIRUBIN 0.9 mg/dL 09/19/2024 09:11 No GLUCOSE,BLOOD-poct (STL) data found URINE COLOR Light-Yellow 09/19/2024 09:11 APPEARANCE Clear 09/19/2024 09:11 U.PH 6.0 09/19/2024 09:11 U.BILIRUBIN Negative mg/dL 09/19/2024 09:11 U.NITRITE Negative mg/dL 09/19/2024 09:11 URINE RBC/HPF <1 /HPF 09/19/2024 09:11 URINE WBC/HPF <1 /HPF 09/19/2024 09:11 MUCUS RARE /LPF 09/19/2024 09:11 UDS: No URINE DRUG SCREEN EO data found TEST: No TEST LAST ONE EO data found No HIV SCREENING EO data found [facility] Hep C tests in last five years. *No Lab Data Found* CXR: Impression for CHEST PORTABLE, 06/23/23, case [id number] -Mild bibasal predominant interstitial prominence, possible mild dependent pulmonary edema but cannot exclude viral infection. -No focal infiltrate. READING PHYSICIAN: Cayden Peñaloza M.D. -[id number] 06/23/2023 18:25 [facility] [employer] [facility] [phone] (For Medical Practitioner Use Only) Attention Patients / Veterans: If you have questions or concerns about these test results, please contact your ordering provider or primary care team. EKG: Problem List: 1) Benign essential hypertension (SNOMED CT 3885154) 2) Sleep apnea (SNOMED CT 36201610) 3) Osteoarthritis of knee (SNOMED CT 332972205) 4) Diabetes mellitus type 2 5) Insomnia 6) Gout 7) Constipation 8) Hyperlipidemia 9) Gastroesophageal reflux disease 10) Obesity 11) Vitamin D deficiency 12) Decreased vitamin B12 level 13) Constipation 14) Pain of left knee region 15) Depression 16) Anxiety 17) Headache 18) Pain in right hip joint 19) Low back pain 20) Polyneuropathy due to diabetes mellitus REVIEW OF SYSTEMS: RESPIRATORY: Recent or current SOB No SOB on routine COPD: Severity: On Home O2: No COPD Sleep Apnea: On CPAP at home: + ILSA CARDIAC: Chest Pain No Angina Hypertension Controlled hypertension. Coronary Artery Disease Neg stress 2 yrs ago Congestive Heart Failure Compensated: Good EF Exercise Tolerance: Fair CAREER AGENT: Cerebral Vascular Accident Residual: No ENDOCRINE: Type 1 or Type 2 DM: Type 2 Insulin Dependent Diabetes Mellitus on insulin Blood Glucose: 113 mg Comment: Stopped ozempic RENAL SYSTEM: Chronic Renal Insufficiency (CRI) Cr 1 GI SYSTEM: GERD Recent Symptoms: No HEMATOLOGY: Anemia Hb 15 MUSCULOSKELETAL: Degenerative Joint Disease + Smoking History: Non-smoker PSH: No previous Anesthesia complications Physical Exam: Auscultation Finding: Heart Sounds: Regular Rate, Regular Rhythm Breath Sounds: Clear AIRWAY: MP CLASS:II SUBMANDIBULAR SPACE:3 fingerbreaths RANGE OF MOTION: FULL TEETH: Okay ASA: 2. A patient with mild systemic disease. ANESTHETIC PLAN: Monitored Anesthesia Care (MAC) Planned anesthetic technique and options were discussed with the patient or guardian. MAC Pre-Induction Reassessment: NPO Greater than 8 hours: Yes Beta José Miguel Therapy: No /caroline/ TATY DENNEY MD Staff Physician, Anesthesiology Signed: 06/22/2025 07:33 Receipt Acknowledged By: 06/22/2025 07:38 /CHECO Rivera, SENIOR DATA ARCHITECT SENIOR DATA ARCHITECT, Anesthesiology 06/22/2025 ADDENDUM STATUS: COMPLETED pt brought into room, face mask placed after safety briefing, pt stated he was too scared to proceed with test. Pt offered anxiety medication, he did not want anything. Team apologized to patient, attending talked to patient and offered a CT. /CHECO Rivera, SENIOR DATA ARCHITECT SENIOR DATA ARCHITECT, Anesthesiology Signed: 06/22/2025 07:41 TATY DENNEY [facility]
--- OUTSIDE RECORDS SUMMARY | 2025-06-27 10:24 | XMS_ITS | Encounter Summary ---
Author Name [facility] [facility] [place] [facility] [place] Address [address] [place] [address] Care Team Providers Care Trim Crew Supervisor Name Role Phone HI CECY Primary Care Provider Unavailforrest e Insurance Providers: [...] FEP BASIC FAM April 03, 2010 [id number] [phone] FIORDALIZA DÍAZ PATIENT ANTHEM [place] FEP PREFERRED PROVIDER ORGANIZAT ION (PPO) FEP BASIC FAM April 03, 2010 112 [id number] [phone] FIORDALIZA DÍAZ PATIENT [place]THE[place] FEP PREFERRED PROVIDER ORGANIZAT ION (PPO) FEP BASIC FAM April 03, 2010 112 [id number] [phone] FIORDALIZA DÍAZ PATIENT ANTHEM FEP PREFERRED PROVIDER ORGANIZAT ION (PPO) FEP BASIC FAMIL Y April 03, 2010 112 [id number] FIORDALIZA DÍAZ PATIENT ANTHEM FEP PREFERRED PROVIDER ORGANIZAT ION (PPO) FEP BASIC FAMIL Y April 03, 2010 112 [id number] [phone] FIORDALIZA DÍAZ PATIENT BC BS [place] FEP PREFERRED PROVIDER ORGANIZAT ION (PPO) FEP-B ASIC- PPO April 03, 2010 [id number] BOXFIORDALIZA PATIENT [place] FEP PREFERRED PROVIDER ORGANIZAT ION (PPO) FEP BASIC FAM April 03, 2010 112 [id number] [phone] BOXMARCON PATIENT CAREMARK ([id number]) PRESCRIPT ION FEP April 03, 2010 [id number] BOX,FIORDALIZA PATIENT CAREMARK ([id number]) PRESCRIPT ION FEP April 03, 2010 [id number] BOX,FIORDALIZA PATIENT [place] FEP ([id number]) PRESCRIPT ION FEPRX April 03, 2010 [id number] BOX,FIORDALIZA PATIENT [place] FEP ([id number]) PRESCRIPT ION FEPRX April 03, 2010 [id number] [phone] BOX,FIORDALIZA PATIENT [place]EM[place] FEP [id number] PRESCRIPT ION FEP RX April 03, 2010 [id number] [phone] BOX,FIORDALIZA PATIENT [place] FEP [id number] PRESCRIPT ION FEP RX April 03, 2010 [id number] [phone] FIORDALIZA DÍAZ PATIENT Selected Encounter This section includes the information on record at [place] for the Encounter. Date/Time Encounter Type Encounter Description Reason Provider Source Nov 10, 2024 06:35 PM EMERGENCY DEPT VISIT LOW [facility] EMERGENCY DEPT ICD-10-CM J02.9 Acute pharyngitis, unspecified VU,JOSEPHINE D IHE Encounter Template Text not used by [place] Assessments - Encounter Diagnoses This section includes the primary and secondary diagnoses documented for the Encounter. Date/Time Primary/Secondary Diagnosis Diagnosis Name Provider Source Nov 10, 2024 09:16 PM PRIMARY Acute pharyngitis, unspecified VU,JOSEPHINE D [facility] Nov 10, 2024 09:16 PM SECONDARY Abrasion of penis, initial encounter VU,JOSEPHINE D [facility] Plan of Treatment: Future Appointments (+ 6 months) and Future Tests (+/- 45 days) The Plan of Treatment section includes future care activities for the [facility] [place] [facility] This section includes future appointments and future orders which are active, pending or scheduled. Future Appointments This section includes appointments that were scheduled to occur 6 months from the date of the Encounter, up to a maximum of 20 appointments. The data comes from all [place] treatment facilities. Appointment Date/Time Appointment Type Appointme nt Facility Name Dec 19, 2024 02:00 PM AMBULATORY - NONE [facility] March 26, 2025 09:30 AM AMBULATORY - MEDICINE [facility] March 27, 2025 08:30 AM AMBULATORY - NONE [facility] April 02, 2025 01:00 PM AMBULATORY - NONE [facility] April 09, 2025 09:00 AM AMBULATORY - MEDICINE [facility] Lab Results: +/- 30 days of the encounter This section includes the Chemistry and Hematology Lab Results on record with [place] for the patient. Radiology Reports and Pathology Reports are provided separately, in subsequent sections. Lab Results This section contains the Chemistry/Hematology Results that were resulted 30 days before or 30 daysafter the date of the Encounter. Date/Time Source Result Type Result - Unit Interpretation Reference Range Specimen Type Comment Nov 10, 2024 06:44 PM [facility] COVID-19 DIAGNOSTIC (FLU/RSV)(STL) NASOPHARYNX Spec imen Type: NASOPHARYNX Comment: Qualitative real-time PCR and RT-PCR to detect viral RNA. A negative result does not preclude infection with the agent(s) tested and should not be used as the sole basis for treatment or other patient management decisions. If negative, but symptoms persist, consider re-testing. Positive results do not rule out bacterial infection or co-infection with other viruses. All results must be combined with clinical observations, patient history, and epidemiological information for final interpretation. Ordering Provider: MISSY DURAN Report Released Date/Time: Nov 10, 2024 06:43 PM Reporting Lab: [facility] [address] [facility] [id number] Performing Lab: [address] [address] INFLUENZA A Negative Negative INFLUENZA B Negative Negative COVID-19 (STL-PB) Not Detected Not Detec paramjit RSV (Cepheid) NEGATIVE Negative Vital Signs: All taken on the encounter date This section contains inpatient and outpatient Vital Signs collected on the date of the Encounter. Date/Time Temperature Pulse Blood Pressure Respiratory Rate SP02 Pain Height Weight Body Mass Index Source Nov 10, 2024 06:42 PM 98 98 130/90 18 3 [facility] Social History: Smoking Status (Most current) and Tobacco Use (All prior to encounter date) This section includes the most current, and the historical, smoking and tobacco- related health factors from the [place] facility where the Encounter took place. Current Smoking Status This section includes the most current smoking, or tobacco-related health factor, from the [place] facility where the Encounter took place. Date/Time Current Smoking Status Comment Vicenta juarez Apr 29, 2015 02:46 PM LIFETIME NON-USER OF TOBACCO [facility] Tobacco Use History This section includes a history of the smoking, or tobacco-related health factors, that were collected on or before the date of the Encounter. The data comes from the [place] facility where the Encounter took place. Date/Time Smoking Status/Tobacco Use Comment F acility Jun 29, 2014 02:52 PM LIFETIME NON-USER OF TOBACCO [facility] Jul 10, 2013 02:20 PM LIFETIME NON-USER OF TOBACCO [facility] May 24, 2009 08:42 AM LIFETIME NON-USER OF TOBACCO [facility] Encounter Notes: All associated encounter notes This section contains the clinical notes associated to the Encounter. Date/Time Encounter Note(s) Provider Source Nov 10, 2024 07:20 PM PHYSICIAN EMERGENCY DEPT NOTE: LOCAL TITLE: EMERGENCY DEPARTMENT [place] STANDARD TITLE: PHYSICIAN EMERGENCY DEPT NOTE DATE OF NOTE: NOV 10, 2024@19:20 ENTRY DATE: NOV 10, 2024@19:20:29 AUTHOR: JOSEPHINE GENAO EXP COSIGNER: URGENCY: STATUS: COMPLETED TRIAGE CHIEF COMPLAINT: sore throat HPI: Patient is a 43-year-old male presents for evaluation for the above complaint. According to the patient, he started feeling ill about 4 or 5 days ago. At that time, he developed prominent fever and chills, vomiting and diarrhea, and sore throat. The patient tells me that he thought that his fever at home was up to 106F. From review of the medical records in [facility], the patient was seen and treated at [facility] in [place] and only on November 08. At the time, he had a big workup including swabs for COVID-19 and influenza that were negative. He also had labs, chest x-ray, and even a CT scan of his abdomen pelvis that was all rather unremarkable. The patient diagnosed with a viral syndrome. However, the patient still having persistent sore throat. He tells me his fever has actually improved at home. He denies any coughing, congestion. His vomiting diarrhea has improved. In addition, the patient has a concern about an abrasion to his penis. Apparently, about 4 days ago, his girlfriend was giving him felacio when she excellently caused a minor injury to his glans with her tooth. He wants to get checked out to make sure that it is healing okay. Finally, the patient apparently was told that his he had some acute kidney injury during his ED visit [place] and just wanted to get checked out as well. REVIEW OF SYSTEMS: See HPI for further details. All 10 systems reviewed and otherwise negative unless otherwise detailed herein. PAST MEDICAL HISTORY: 1) Benign essential hypertension (SNOMED CT 2429823) 2) Sleep apnea (SNOMED CT 51547468) 3) Osteoarthritis of knee (SNOMED CT 235686213) 4) Diabetes mellitus type 2 5) Insomnia 6) Gout 7) Constipation 8) Hyperlipidemia 9) Gastroesophageal reflux disease 10) Obesity 11) Vitamin D deficiency 12) Decreased vitamin B12 level 13) Constipation 14) Pain of left knee region 15) Depression 16) Anxiety 17) Headache 18) Pain in right hip joint 19) Low back pain 20) Polyneuropathy due to diabetes mellitus CURRENT MEDICATIONS: Active Outpatient Medications (including Supplies): Active Outpatient Medications Status = 1) ALLOPURINOL 100MG TAB TAKE ONE TABLET BY MOUTH ONCE A DAY ACTIVE FOR GOUT. TAKE WITH PLENTY OF WATER. 2) ATORVASTATIN CALCIUM 40MG TAB TAKE ONE-HALF TABLET BY MOUTH ACTIVE EVERY EVENING FOR CHOLESTEROL. REPORT ANY UNEXPLAINED MUSCLE PAIN/WEAKNESS TO PROVIDER. 3) CHOLECALCIF 50MCG (D3-2,000UNIT) TAB TAKE TWO TABLETS BY ACTIVE (S) MOUTH ONCE A DAY Indication: FOR VITAMIN D DEFICIENCY 4) CYANOCOBALAMIN 500MCG TAB TAKE ONE TABLET BY MOUTH ONCE A ACTIVE DAY FOR B12 SUPPLEMENTATION Indication: FOR VITAMIN B12 SUPPLEMENTATION 5) DICLOFENAC NA 1% TOP GEL APPLY 4 GM TO AFFECTED AREA(S) FOUR ACTIVE TIMES A DAY /INFLAMMATION; NOT MORE THAN 16 GRAMS DAILY TO ANY LOWER EXTREMITY JOINT. NOT MORE THAN 8 GRAMS DAILY TO ANY UPPER EXTREMITY JOINT. MAX 32GM/DAY OVER ALL JOINTS. (MEASURE DOSE WITH RULER ATTACHED INSIDE BOX) Indication: FOR PAIN 6) EMPAGLIFLOZIN 25MG TAB TAKE ONE-HALF TABLET BY MOUTH ONCE A ACTIVE DAY 7) GABAPENTIN 100MG CAP TAKE ONE CAPSULE BY MOUTH THREE TIMES A ACTIVE DAY Indication: FOR NERVE PAIN 8) HYDROPHILIC (EQV EUCERIN) TOP CREAM APPLY LIGHTLY TO ACTIVE AFFECTED AREA(S) ONCE A DAY FOR DRY SKIN. (EXTERNAL USE ONLY) 9) INSULIN SYRINGE 0.5ML 30G 12MM USE 1 SYRINGE UNDER THE SKIN ACTIVE ONCE A DAY TO USE WITH INSULIN Indication: FOR DIABETES 10) INSULIN,ASPART(EQV-NOVLG)10 0UN/ML FLXPEN INJECT 10 UNITS ACTIVE UNDER THE SKIN THREE TIMES A DAY BEFORE MEALS FOR BLOOD SUGAR CONTROL. ADMINISTER 10 MINUTES BEFORE FOOD DIRECTED. REFRIGERATE UN-OPENED PENS. DISCARD CARTRIDGE 28 DAYS AFTER OPENING. 11) INSULIN,GLARGINE-YFGN 100UNIT/ML INJ INJECT 42 UNITS UNDER ACTIVE THE SKIN ONCE A DAY TO CONTROL BLOOD SUGAR. ADMINISTER AT SAME TIME EACH DAY DIRECTED. DISCARD ANY VIAL 28 DAYS AFTER OPENING. Indication: FOR DIABETES 12) LIDOCAINE 5% PATCH APPLY 1 PATCH TO SKIN SITE ONCE A DAY ACTIVE NEEDED APPLY PATCH AND PRESS FIRMLY FOR 10-15 SECONDS. KEEP ON FOR 12 HOURS THEN REMOVE PATCH FOR 12 HOURS. Indication: FOR LOCAL ANESTHESIA 13) LISINOPRIL 40MG TAB TAKE ONE AND ONE-HALF TABLETS BY MOUTH ACTIVE ONCE A DAY FOR HEART OR BLOOD PRESSURE Indication: FOR HIGH BLOOD PRESSURE 14) METFORMIN HCL 500MG 24HR SA TAB TAKE TWO TABLETS BY MOUTH ACTIVE ONCE A DAY FOR BLOOD SUGAR CONTROL. TAKE WITH FOOD. AVOID ALCOHOL. DISCONTINUE BEFORE GETTING XRAY DYE. 15) NEEDLE,PEN 31G,5MM USE 1 NEEDLE UNDER THE SKIN FOUR TIMES A ACTIVE DAY 16) OMEPRAZOLE 40MG EC CAP TAKE ONE CAPSULE BY MOUTH EVERY ACTIVE (S) MORNING BEFORE A MEAL TO LOWER STOMACH ACID. TAKE 30 MINUTES PRIOR TO FOOD. 17) TABLET CUTTER USE TABLET CUTTER NEEDED ACTIVE Indication: FOR TABLET CUTTING Active Non-VA Medications Status = 1) Non-VA ACETAMINOPHEN TAB BY MOUTH ACTIVE 2) Non-VA SEMAGLUTIDE 0.25MG/0.375ML INJ PEN 3ML 0.5MG UNDER ACTIVE THE SKIN EVERY WEEK 19 Total Medications No medications found.. I have reviewed the patient's medication list with the patient and/or his/her care-adult live in caregiver. Any medication discrepancies have been resolved. Patient will be provided with an updated list of his/her medication(s). SURGICAL HISTORY: not pertinent FAMILY HISTORY: not pertinent SOCIAL HISTORY: Social History Main Topics: Smoking status: No data available for: Current Tobacco User Alcohol Use: not indorsed ____ Illicit Drug Use: not indorsed Sexual Activity: Other Topics of Concern: Child bearing age: N/A LMP: N/A possible: N/A ALLERGIES: Review of patient's allergies indicates: METHADONE, METFORMIN PHYSICAL EXAM: VITAL SIGNS: 130/90 (11/10/2024 18:42)98 (11/10/2024 18:42)96% (09/19/2024 08:24)98 F [36.7 C] (11/10/2024 18:42)18 (11/10/2024 18:42)The OBJECT WEIGHT LAST 3 was NOT found...Contact IRM. MAThe OBJECT was NOT found...Contact IRM.PAIN ASSESSMENTThe OBJECT was NOT found...Contact IRM. Measurement DT PAIN 11/10/2024 18:42 3 CONSTITUTIONAL: No acute distress, Non-toxic appearance HENT: airway patent. Tonsils mildly to moderately enlarged bilaterally without exudates no mass effect. No swelling to tongue, lips. No trismus. EYES: Conj pink, sclera clear NECK: Normal range of motion, No tenderness, Supple, No stridor, No LAD. CARDIOVASCULAR: Normal heart rate, Normal rhythm, No murmurs, No rubs, No gallops. PULMONARY/CHEST: CTA bilaterally, thorax stable without tenderness ABDOMEN: Bowel sounds normal, Soft, flat, No tenderness, No bruit, No masses, No pulsatile masses BACK: No tenderness, No CVA tenderness : Normal male external genitalia. Circumcised. Small healing abrasion to glans of penis noted approximately 0.5 cm in length. No obvious redness, bleeding, discharge, or signs of infection to abrasion. RECTAL: EXTREMITIES: Normal range of motion, Intact distal pulses, No edema, No tenderness NEUROLOGIC: Alert & oriented/reactive, Normal motor function, Normal gait, no ataxia, No focal deficits appreciated on cursory screening exam SKIN: Warm, Dry, No erythema, No rash LABS: RADIOLOGY: ECG IMPRESSION: ED Interpretation- ED COURSE & MEDICAL DECISION MAKING: Nursing notes, medications, vital signs, allergies and pertinent labs & imaging studies reviewed (see chart for details) with lab results reviewed with patient and family/caregivers at bedside and radiology results reviewed with patient and any family/caregivers at bedside. Stable, alert, nontoxic, nonfocal with clinically apparent acute pharyngitis. Given report of fever and no cough, will give prescription for amoxicillin to cover possible strep pharyngitis. However, I instructed the patient did not start antibiotic unless he was still having symptoms or worsening symptoms 3 to 4 days from now. In regards to the patient's penile abrasion, will recommend symptomatic treatment and bacitracin ointment prophylactically. Finally, from what I saw from his medical records from recent ED visit, his creatinine level was up to 1.69 during that visit. The patient met he was dehydrated and was not eating and drinking for about 3 days, and also was having vomiting diarrhea. I recommended checking labs including creatinine level but the patient declined at this time but he did not want to wait for results. He wants to follow-up with PCP to get outpatient labs as needed. Clinical information obtained from an independent historian. History obtained from or confirmed by: ___spouse ___parent ___guardian ___family ___friend ___EMS ___other: Discussed with radiology regarding test interpretation: I performed an independent interpretation of: ___EKG ___rhythm strip ___plain x-ray ___ultrasound ___CT scan ___MRI ___other Patient's care impacted by: _x__Diabetes _x__Hypertension ___Cancer ___other: Patient's care is significantly limited by social determinants of health including, but not limited to: ___inadequate housing ___low income ___alcoholism and drug addiction in family ___problems related to primary support group ___unemployment ___problems with employment ___language barrier ___lack of transportation ___psychiatric disease ___other social determinants of health: External records reviewed: ___Inpatient records ___office records _x__outpatient records x___prior outpatient labs ___prior outpatient radiology ___primary care record x___outside ED record ___PMD referral x___outside ER ___urgent care referral ___other: Management of the patient was discussed with: ___Hospitalist ___consultant ___behavioral health provider ___primary care provider ___other: The following testing was considered but ultimately was not performed after discussion with the patient/family: I considered prescription management with the following but ultimately did not prescribe: ___pain medication ___antiviral ___antibiotic ___other: I considered admission/ observation but decided upon discharge due to: PLASTIC CARD GRADER CARDROOM SERVICE/TIME: MEDICATIONS GIVEN IN ED: [ ] YES [x ] NO DIFFERENTIAL DIAGNOSES CONSIDERED: Strep pharyngitis versus viral pharyngitis versus viral syndrome DECISION to ADMIT / DISCHARGE TIME: 19:20 DISPOSITION CONDITION:[x ] Improved [ ] Unchanged [ ] Deteriorated CLINICAL IMPRESSION: 1 -pharyngitis, acute 2 -penile abrasion 3 - DISCHARGE INSTRUCTIONS AND PATIENT-DIRECTED FOLLOW-UP RECOMMENDATIONS: DIET: regular ACTIVITY: ad rodney NEW MEDS: Amoxicillin, bacitracin ointment MEDICATION RECONCILIATION: CONTINUE ALL PRESCRIBED MEDICATIONS DIRECTED EXCEPT: FOLLOW-UP WITH PRIMARY SWITCH FOREMAN/SPECIALIST: routine in 1-2 weeks if not improving, sooner if worse RETURN TO EMERGENCY: if any worries or concerns ADDITIONAL SIGNATURE PCP: [x ] YES [ ] NO [ ] not listed Active Outpatient Medications (including Supplies): Active Outpatient Medications Status = 1) ALLOPURINOL 100MG TAB TAKE ONE TABLET BY MOUTH ONCE A DAY ACTIVE FOR GOUT. TAKE WITH PLENTY OF WATER. 2) ATORVASTATIN CALCIUM 40MG TAB TAKE ONE-HALF TABLET BY MOUTH ACTIVE EVERY EVENING FOR CHOLESTEROL. REPORT ANY UNEXPLAINED MUSCLE PAIN/WEAKNESS TO PROVIDER. 3) CHOLECALCIF 50MCG (D3-2,000UNIT) TAB TAKE TWO TABLETS BY ACTIVE (S) MOUTH ONCE A DAY Indication: FOR VITAMIN D DEFICIENCY 4) CYANOCOBALAMIN 500MCG TAB TAKE ONE TABLET BY MOUTH ONCE A ACTIVE DAY FOR B12 SUPPLEMENTATION Indication: FOR VITAMIN B12 SUPPLEMENTATION 5) DICLOFENAC NA 1% TOP GEL APPLY 4 GM TO AFFECTED AREA(S) FOUR ACTIVE TIMES A DAY /INFLAMMATION; NOT MORE THAN 16 GRAMS DAILY TO ANY LOWER EXTREMITY JOINT. NOT MORE THAN 8 GRAMS DAILY TO ANY UPPER EXTREMITY JOINT. MAX 32GM/DAY OVER ALL JOINTS. (MEASURE DOSE WITH RULER ATTACHED INSIDE BOX) Indication: FOR PAIN 6) EMPAGLIFLOZIN 25MG TAB TAKE ONE-HALF TABLET BY MOUTH ONCE A ACTIVE DAY 7) GABAPENTIN 100MG CAP TAKE ONE CAPSULE BY MOUTH THREE TIMES A ACTIVE DAY Indication: FOR NERVE PAIN 8) HYDROPHILIC (EQV EUCERIN) TOP CREAM APPLY LIGHTLY TO ACTIVE AFFECTED AREA(S) ONCE A DAY FOR DRY SKIN. (EXTERNAL USE ONLY) 9) INSULIN SYRINGE 0.5ML 30G 12MM USE 1 SYRINGE UNDER THE SKIN ACTIVE ONCE A DAY TO USE WITH INSULIN Indication: FOR DIABETES 10) INSULIN,ASPART(EQV-NOVLG)10 0UN/ML FLXPEN INJECT 10 UNITS ACTIVE UNDER THE SKIN THREE TIMES A DAY BEFORE MEALS FOR BLOOD SUGAR CONTROL. ADMINISTER 10 MINUTES BEFORE FOOD DIRECTED. REFRIGERATE UN-OPENED PENS. DISCARD CARTRIDGE 28 DAYS AFTER OPENING. 11) INSULIN,GLARGINE-YFGN 100UNIT/ML INJ INJECT 42 UNITS UNDER ACTIVE THE SKIN ONCE A DAY TO CONTROL BLOOD SUGAR. ADMINISTER AT SAME TIME EACH DAY DIRECTED. DISCARD ANY VIAL 28 DAYS AFTER OPENING. Indication: FOR DIABETES 12) LIDOCAINE 5% PATCH APPLY 1 PATCH TO SKIN SITE ONCE A DAY ACTIVE NEEDED APPLY PATCH AND PRESS FIRMLY FOR 10-15 SECONDS. KEEP ON FOR 12 HOURS THEN REMOVE PATCH FOR 12 HOURS. Indication: FOR LOCAL ANESTHESIA 13) LISINOPRIL 40MG TAB TAKE ONE AND ONE-HALF TABLETS BY MOUTH ACTIVE ONCE A DAY FOR HEART OR BLOOD PRESSURE Indication: FOR HIGH BLOOD PRESSURE 14) METFORMIN HCL 500MG 24HR SA TAB TAKE TWO TABLETS BY MOUTH ACTIVE ONCE A DAY FOR BLOOD SUGAR CONTROL. TAKE WITH FOOD. AVOID ALCOHOL. DISCONTINUE BEFORE GETTING XRAY DYE. 15) NEEDLE,PEN 31G,5MM USE 1 NEEDLE UNDER THE SKIN FOUR TIMES A ACTIVE DAY 16) OMEPRAZOLE 40MG EC CAP TAKE ONE CAPSULE BY MOUTH EVERY ACTIVE (S) MORNING BEFORE A MEAL TO LOWER STOMACH ACID. TAKE 30 MINUTES PRIOR TO FOOD. 17) TABLET CUTTER USE TABLET CUTTER NEEDED ACTIVE Indication: FOR TABLET CUTTING Active Non-VA Medications Status = 1) Non-VA ACETAMINOPHEN TAB BY MOUTH ACTIVE 2) Non-VA SEMAGLUTIDE 0.25MG/0.375ML INJ PEN 3ML 0.5MG UNDER ACTIVE THE SKIN EVERY WEEK 19 Total Medications /es/ Josephine Teresa. MD Andrew Staff Physician Signed: 11/10/2024 21:23 Receipt Acknowledged By: 11/11/2024 08:15 /caroline/ Gaby Rojo DNP, CONTACT LENS CUTTER, SUPERVISOR KEYMODULE ASSEMBLY-C Primary Care Nurse Practitioner JOSEPHINE GENAO [facility] Nov 10, 2024 06:39 PM EMERGENCY DEPT TRIAGE NOTE: LOCAL TITLE: EMERGENCY DEPARTMENT TRIAGE NOTE STANDARD TITLE: EMERGENCY DEPT TRIAGE NOTE DATE OF NOTE: NOV 10, 2024@18:39 ENTRY DATE: NOV 10, 2024@18:39:22 AUTHOR: MARIA ESTHER TODD COSIGNER: URGENCY: STATUS: COMPLETED Emergency Department/Urgent Care Center Triage Patient age:43 Sex in chart: MALE Mode of Arrival: Private vehicle Mode of Mobility: * Walk Chief Complaint: pharyngitis, 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 denied fever, chills, n-v-d. pt also c/o a scratch to the penis, present x 3 days, which did not seem to be resolving. pt appeared awake and alert. had no further complaints. no distress noted. Level of Consciousness (AVPU): Alert = Appears aware of and responsive to the environment on their own. Follows commands, opens eyes spontaneously, and tracks objects. Vital Signs: Temperature 98 F (36.7 C) Pulse 98 Respirations 18 Blood Pressure 130/90 Pulse Oximetry 97 Room Air Pain: DVPRS Scale Location: throat Defense and Veterans Pain Rating Scale (DVPRS): 3 Sometimes distracts me Pain Score: 3 Patient's acceptable pain goal: 0 No pain Suicide Screen: Thayer Suicide Severity Rating Scale (C-SSRS) screener 1. [...] required due to responses to other questions. Emergency Severity Index (HELADIO) level: Level 4 Previously documented allergies: METHADONE, METFORMIN Current Problems: 1) Benign essential hypertension (SNOMED CT 1286655) 2) Sleep apnea (SNOMED CT 03507589) 3) Osteoarthritis of knee (SNOMED CT 671180685) 4) Diabetes mellitus type 2 5) Insomnia 6) Gout 7) Constipation 8) Hyperlipidemia 9) Gastroesophageal reflux disease 10) Obesity 11) Vitamin D deficiency 12) Decreased vitamin B12 level 13) Constipation 14) Pain of left knee region 15) Depression 16) Anxiety 17) Headache 18) Pain in right hip joint 19) Low back pain 20) Polyneuropathy due to diabetes mellitus /caroline/ MARIA ESTHER TODD CHILD CARE PROVIDER REGISTERED NURSE Signed: 11/10/2024 18:43 MARIA ESTHER TODD [facility]
--- OUTSIDE RECORDS SUMMARY | 2025-06-27 10:24 | XMS_ITS ---
[place] MEDICAL NUTRITION INDIV IN [facility] Encounter Summary Created on: June 27, 2025 FIORDALIZA DÍAZ : 1980 Sex: Male Author Name [facility] [place] Address [address] [place] [address] Care Team Providers Care Aquatics Director Name Role Phone HI CECY Primary Care [...] FEP BASIC FAM April 03, 2010 [id number] [phone] FIORDALIZA DÍAZ PATIENT ANTHEM [place] FEP PREFERRED PROVIDER ORGANIZAT ION (PPO) FEP BASIC FAM April 03, 2010 112 [id number] [phone] FIORDALIZA DÍAZ PATIENT ANTHE[place] FEP PREFERRED PROVIDER ORGANIZAT ION (PPO) FEP BASIC FAM April 03, 2010 112 [id number] [phone] FIORDALIZA DÍAZ PATIENT ANTHEM FEP PREFERRED PROVIDER ORGANIZAT ION (PPO) FEP BASIC FAMIL Y April 03, 2010 112 [id number] [phone] FIORDALIZA DÍAZ PATIENT ANTHEM FEP PREFERRED PROVIDER ORGANIZAT ION (PPO) FEP BASIC FAMIL Y April 03, 2010 112 [id number] [phone] FIORDALIZA DÍAZ PATIENT [place] BS [place] FEP PREFERRED PROVIDER ORGANIZAT ION (PPO) FEP-B ASIC- PPO April 03, 2010 [id number] FIORDALIZA DÍAZ PATIENT [place] FEP PREFERRED PROVIDER ORGANIZAT ION (PPO) FEP BASIC FAM April 03, 2010 112 [id number] [phone] BOXMARCON PATIENT [place] ([id number]) PRESCRIPT ION FEP April 03, 2010 [id number] BOX,FIORDALIZA PATIENT [place] ([id number]) PRESCRIPT ION FEP April 03, 2010 [id number] BOX,FIORDALIZA PATIENT [place] FEP ([id number]) PRESCRIPT ION FEPRX April 03, 2010 [id number] [phone] BOX,FIORDALIZA PATIENT [place] FEP ([id number]) PRESCRIPT ION FEPRX April 03, 2010 [id number] [phone] BRE,FIORDALIZA PATIENT [place] FEP [id number] PRESCRIPT ION FEP RX April 03, 2010 [id number] [phone] BOX,FIORDALIZA PATIENT [place] FEP [id number] PRESCRIPT ION FEP RX April 03, 2010 [id number] [phone] FIORDALIZA DÍAZ PATIENT Selected Encounter This section includes the information on record at [place] for the Encounter. Date/Time Encounter Type Encounter Description Reason Provider Source March 27, 2025 08:30 AM MEDICAL NUTRITION INDIV IN PRIMARY CARE/MEDICINE ICD-10-CM E11.9 Type 2 diabetes mellitus without complications ME STEWART RIOS Monique Encounter Template Text not used by [place] Assessments - Encounter Diagnoses This section includes the primary and secondary diagnoses documented for the Encounter. Date/Time Primary/Secondary Diagnosis Diagnosis Name Provider Source April 05, 2025 11:34 AM PRIMARY Type 2 diabetes mellitus without complications LISA RIOS [facility] April 05, 2025 11:34 AM SECONDARY Obesity, class 3 LISA RIOS [facility] Plan of Treatment: Future Appointments (+ 6 months) and Future Tests (+/- 45 days) The Plan of Treatment section includes future care activities for the patient from all VA treatmentfacilities. This section includes future appointments and future orders which are active, pending or scheduled. Future Appointments This section includes appointments that were scheduled to occur 6 months from the date of the Encounter, up to a maximum of 20 appointments. The data comes from all [facility]. Appointment Date/Time Appointment Type Appointme nt Facility Name April 02, 2025 01:00 PM AMBULATORY - NONE [facility] April 09, 2025 09:00 AM AMBULATORY - MEDICINE [facility] May 21, 2025 03:30 PM AMBULATORY - MEDICINE [facility] May 28, 2025 09:00 AM AMBULATORY - NONE [facility] Jun 02, 2025 12:00 PM AMBULATORY - NONE [facility] Jun 22, 2025 07:15 AM AMBULATORY - MEDICINE [facility] Jun 25, 2025 01:00 PM AMBULATORY - NONE [facility] Jul 09, 2025 11:00 AM AMBULATORY - NONE [facility] Jul 30, 2025 01:30 PM AMBULATORY - NONE [facility] Active, Pending, and Scheduled Orders This section includes a listing of several types of active, pending, and scheduled orders, including clinic medications orders, diagnostic test orders, procedure orders and consult orders; where the start date of the order is 45 days before the date of the Encounter or 45 days after the date of theEncounter. The data comes from all [facility]. Test Date/Time Test Type Test Details Facility Name March 26, 2025 10:50 AM Consult Order [facility] SAULT-SLEEP MANDIBULAR REPOSITIONING DEVICE STL Cons Electronic [employer] Linguist's Choice [facility] Lab Results: +/- 30 days of the encounter This section includes the Chemistry and Hematology Lab Results on record with [place] for the patient. Radiology Reports and Pathology Reports are provided separately, in subsequent sections. Lab Results This section contains the Chemistry/Hematology Results that were resulted 30 days before or 30 daysafter the date of the Encounter. Date/Time Source Result Type Result - Unit Interpretation Reference Range Specimen Type Comment April 02, 2025 02:20 PM [facility] HGA1C BLOOD Specimen Type: BLOOD No comment entered. Ordering Provider: GABY GASPAR Report Released Date/Time: March 26, 2025 10:50 AM Reporting Lab: [address] [id number] Performing Lab: [address] [address] HGA1C 6.9 H 4.0-6.0 April 02, 2025 02:[address] [facility] CYSTATIN C EGFR PANELS (ST[facility]-PB-MA) PLASMA Spec imen Type: PLASMA Comment: Choice of which of the reported eGFR values to use depends on the clinical situation. For example, for patients with severe muscle wasting or reduced muscle mass, eGFR calculated using the 2012 cystatin equation may be preferred. Ordering Provider: GABY GASPAR Report Released Date/Time: March 26, 2025 10:50 AM Reporting Lab: [address] [address] Performing Lab: [address] [address] CYSTATIN C 1.15 mg/L 0.57-1.80 CKD-EPI CYSTATIN C (2011) 68.6 >60 CKD-EPI CREAT-CYSC (2020) 75.4 >60 CREATININE ([facility]) 1.13 mg/dL 0.7-1.3 Social History: Smoking Status (Most current) and Tobacco Use (All prior to encounter date) This section includes the most current, and the historical, smoking and tobacco- related health factors from the [place] facility where the Encounter took place. Current Smoking Status This section includes the most current smoking, or tobacco-related health factor, from the [place] facility where the Encounter took place. Date/Time Current Smoking Status Comment Facil ity Aug 02, 2023 02:00 PM VA-TOBACCO [facility] Tobacco Use History This section includes a history of the smoking, or tobacco-related health factors, that were collected on or before the date of the Encounter. The data comes from the [place] facility where the Encounter took place. Date/Time Smoking Status/Tobacco Use Comment F acility Apr 28, 2022 02:00 PM PA-TOBACCO [facility] Feb 04, 2021 09:00 AM VA-TOBACCO NEVER [facility]ED [facility] Jul 07, 2019 03:37 PM VA-TOBACCO [facility] Dec 11, 2018 01:41 PM VA-TOBACCO NEVER [facility]ED [facility] May 29, 2017 03:13 PM LIFETIME NON-USER OF TOBACCO [facility] Nov 29, 2016 03:21 PM LIFETIME NON-USER OF TOBACCO [facility] Encounter Notes: All associated encounter notes This section contains the clinical notes associated to the Encounter. Date/Time Encounter Note(s) Provider Source March 27, 2025 08:26 AM NUTRITION DIETETIC S OUTPATIENT INITIAL EVALUATION CONSULT: LOCAL TITLE: OUTPATIENT NUTRITION ASSESSMENT ST STANDARD TITLE: NUTRITION DIETETICS OUTPATIENT INITIAL EVALUATIO DATE OF NOTE: MARCH 27, 2025@08:26 ENTRY DATE: MARCH 27, 2025@08:26:11 AUTHOR: FELICIA RIOS COSIGNER: URGENCY: STATUS: COMPLETED Modality of Care: VVC * last four and location confirmed at the [place] [facility] NUTRITION ASSESSMENT Diagnosis: obesity, DM Time spent with Andrews: 38 minutes Last appointment date: May 2023 with endocrinology RDN CLIENT HISTORY Patient Medical History: Benign essential hypertension Sleep apnea Osteoarthritis of knee Diabetes mellitus type 2 Insomnia Gout Constipation Hyperlipidemia Gastroesophageal reflux disease Obesity Vitamin D deficiency Decreased vitamin B12 level OUTPATIENT MEDICATIONS Active Outpatient Medications Status ALLOPURINOL 100MG TAB TAKE ONE TABLET BY MOUTH ONCE A DAY ACTIVE FOR GOUT. TAKE WITH PLENTY OF WATER. ATORVASTATIN CALCIUM 40MG TAB TAKE ONE-HALF TABLET BY MOUTH ACTIVE EVERY EVENING FOR CHOLESTEROL. REPORT ANY UNEXPLAINED MUSCLE PAIN/WEAKNESS TO PROVIDER. CHOLECALCIF 50MCG (D3-2,000UNIT) TAB TAKE TWO TABLETS BY ACTIVE MOUTH ONCE A DAY Indication: FOR VITAMIN D DEFICIENCY CYANOCOBALAMIN 500MCG TAB TAKE ONE TABLET BY MOUTH ONCE A ACTIVE DAY FOR B12 SUPPLEMENTATION Indication: FOR VITAMIN B12 SUPPLEMENTATION EMPAGLIFLOZIN 25MG TAB TAKE ONE-HALF TABLET BY MOUTH ONCE A ACTIVE DAY GABAPENTIN 100MG CAP TAKE ONE CAPSULE BY MOUTH THREE TIMES A ACTIVE DAY Indication: FOR NERVE PAIN INSULIN,ASPART(EQV-NOVLG)10 0UN/ML FLXPEN INJECT 10 UNITS ACTIVE UNDER THE SKIN THREE TIMES A DAY BEFORE MEALS FOR BLOOD SUGAR CONTROL. ADMINISTER 10 MINUTES BEFORE FOOD DIRECTED. REFRIGERATE UN-OPENED PENS. DISCARD CARTRIDGE 28 DAYS AFTER OPENING. INSULIN,GLARGINE,HUMAN 100 UNIT/ML INJ INJECT 42 UNITS UNDER ACTIVE THE SKIN ONCE A DAY TO CONTROL BLOOD SUGAR. ADMINISTER AT SAME TIME EACH DAY DIRECTED. DISCARD ANY VIAL 28 DAYS AFTER OPENING. Indication: FOR DIABETES LISINOPRIL 40MG TAB TAKE ONE AND ONE-HALF TABLETS BY MOUTH ACTIVE ONCE A DAY FOR HEART OR BLOOD PRESSURE Indication: FOR HIGH BLOOD PRESSURE OMEPRAZOLE 40MG EC CAP TAKE ONE CAPSULE BY MOUTH EVERY ACTIVE MORNING BEFORE A MEAL TO LOWER STOMACH ACID. TAKE 30 MINUTES PRIOR TO FOOD. Active Non-VA Medications Status Non-VA SEMAGLUTIDE 0.25MG/0.375ML INJ PEN 3ML 0.5MG UNDER ACTIVE THE SKIN EVERY WEEK - vet reported he is currently at 1.0mg/wk. - Vet notes appetite suppression on Ozempic. BIOCHEMICAL DATA/MEDICAL TESTS AND PROCEDURES HGA1C 6.3 H % 09/19/2024 09:11 (improving) TRIGLYCERIDE 180 H mg/dL 09/19/2024 09:11 CHOLESTEROL 116 mg/dL 09/19/2024 09:11 HDL(New) 29 L mg/dL 09/19/2024 09:11 CALCULATED LDL 51 mg/dL 09/19/2024 09:11 VITAMIN D, 25-HYDROXY 33.3 ng/mL 09/19/2024 09:11 Self-Monitoring Blood Glucose (SMBG): Vet checks fasting BG daily; ranges 100-119. ANTHROPOMETRIC MEASUREMENTS Ht.: 72 in [182.9 cm] (03/26/2025 09:33) Wt.: 299.4 lb. [135.81 kg] (03/26/2025 09:33) BMI: 40.7 - obesity grade III Home Wt.: 294 lbs. (03/27/25) IBW: 178 lbs./80.9 kg. Weight History/Significant changes: Gabby reported Wt. loss from 345 lbs. to 290 lbs., but regained 4 lbs. - Wt. gain occurred quickly D/T knee injury requiring a Lt. TKA; he gained 100 lbs. within one year between 7833-3760. - Highest wt.: 345 lbs. (2023) - Lowest sustainable wt.: 200 lbs. Patient Weight History - Last Four 1. 299.4 lbs. / 135.8 kg. on MARCH 26, 2025@09:33:58 2. 303.0 lbs. / 137.4 kg. on SEP 19, 2024@08:24:49 3. 309.0 lbs. / 140.2 kg. on JAN 29, 2024@14:10:48 4. 306.0 lbs. / 138.8 kg. on AUG 02, 2023@14:32:49 FOOD AND NUTRITION RELATED HISTORY Diet experience: Good appetite; notes appetite suppression on Ozempic; NKFA Fluids: water, sweet tea, occasionally Julio-Aid or soda Food: consumes 1-2 meals/d and snacks B: skips L: sandwich, fried chicken or fish (dines out); turkey sandwich or leftovers D: skips 4-5x's/wk.; pasta, chicken, Jackelyn cheese sandwich, pizza, Azeri, Prydeinig S: flavored popcorn, chips, occasionally candy KNOWLEDGE BELIEFS BEHAVIOR AND ATTITUDES - Notes his diet is not the best; snacks around midnight if bored (mainly consumes sugary beverages). - Reports increased issues with his back and neuropathy affecting mood and causing some depression. He notes an increase in stress/emotional eating for the past month. PHYSICAL ACTIVITY AND FUNCTION Nutrition related ADLs: - Diat and his do the grocery shopping and cooking. 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 - overall PA limited by nerve pain NUTRITION FOCUSED PHYSICAL FINDINGS - denied problems chewing/N/V - c/o dry throat; sometimes harder to swallow dry foods - c/o reflux; controlled on meds but at times has increased heartburn depending on what he consumes - BM's regular - adequate PO intake - Hx of intentional Wt. loss - no signs of muscle/fat loss or fluid abnormalities reported/observed - malnutrition not indicated at this time NUTRITION PRESCRIPTION Estimated energy needs: Estimated calorie needs: 0652-9129 kcals/d (15-18 kcals/kg) Estimated protein needs: 97-121 g/d (1.2-1.5 g/kg IBW)- increased D/T Nutrition prescription specifics: anti-inflammatory, CHO consistent, low fat, ITZEL NUTRITION DIAGNOSIS -NEW- Overweight/obesity (behavior and physiologic metabolic etiologies) R/T excessive energy intake, physical inactivity, and metabolic dysfunction AEB BMI >30 -NEW- Altered nutrition-related lab value (physiologic metabolic etiology) R/T endocrine dysfunction AEB elevated HgbA1C NUTRITION INTERVENTIONS NUTRITION EDUCATION/COUNSELING Nutrition counseling based on goal setting strategy: - Reviewed portion sizes and macronutrients. - Discussed the importance of eating complex CHOs/fiber along with lean protein to create satiety and promote BG control; provided with examples. - Focused on the benefit of eating consistently and not skipping multiple meals. - Informed of the importance of consuming anti-inflammatory, whole/plant-based foods over processed/refined foods. - Reviewed vet's meal habits/food preferences and offered suggestions for modifications to help balance nutrient intake while reducing fat/Na/refined sugar, keeping energy in the estimated range, and increasing anti-inflammatory foods/fiber/complex CHO's/fruit/vegetables. Encouraged bringing food from home for breakfast and/or lunch instead of skipping or dining out. - Discussed portion/ingredients for a smoothie that vet can try for breakfast that includes fiber and protein. - Encouraged regular physical activity. Brainstormed ways vet can increase walking. - Answered all nutrition related questions. Education material: verbal Barriers to learning: none at this time Comprehension: good; understanding verbalized Adherence: expect fair to good D/T interest/motivation/underst anding NUTRITION MONITORING AND EVALUATION Body composition/growth/weight history: - Wt. <290 lbs. by next visit (NEW) Labs: Improved HgbA1C by next lab check (NEW) Food and Beverage Intake: - Will consistently consume 2 meals/d with a snack by next visit - Will try to add a smoothie or yogurt for breakfast by next visit Return to clinic: follow-up 3-4 month; [facility] Dietitian contact information provided for any follow-up questions or needs. Encouraged vet to reach out via [facility] as needed. /caroline/ FELICIA RIOS Clinical Dietitian// Signed: 03/27/2025 15:38 FELICIA RIOS [facility]
--- OUTSIDE RECORDS SUMMARY | 2025-06-27 10:24 | XMS_ITS | Encounter Summary ---
Author Name [facility] Organization [facility] Address [address] [place] [address] Care Team Providers Care Watchstander Name Role Phone CECY DO Primary Care [...] FEP BASIC FAM April 03, 2010 [id number] [phone] FIORDALIZA DÍAZ PATIENT ANTHEM [place] FEP PREFERRED PROVIDER ORGANIZAT ION (PPO) FEP BASIC FAM April 03, 2010 112 [id number] [phone] FIORDALIZA DÍAZ PATIENT ANTHEM [place] FEP PREFERRED PROVIDER ORGANIZAT ION (PPO) FEP BASIC FAM April 03, 2010 112 [id number] [phone] FIORDALIZA DÍAZ PATIENT ANTHEM FEP PREFERRED PROVIDER ORGANIZAT ION (PPO) FEP BASIC FAMIL Y April 03, 2010 112 [id number] FIORDALIZA DAÍZ PATIENT ANTHEM FEP PREFERRED PROVIDER ORGANIZAT ION (PPO) FEP BASIC FAMIL Y April 03, 2010 112 [id number] [phone] FIORDALIZA DÍAZ PATIENT BC BS [place] FEP PREFERRED PROVIDER ORGANIZAT ION (PPO) FEP-B ASIC- PPO April 03, 2010 112 [id number] BOXFIORDALIZA PATIENT [place] FEP PREFERRED PROVIDER ORGANIZAT ION (PPO) FEP BASIC FAM April 03, 2010 112 [id number] [phone] BOXMARCON PATIENT [place] ([id number]) PRESCRIPT ION FEP April 03, 2010 [id number] BOX,FIORDALIZA PATIENT [place] ([id number]) PRESCRIPT ION FEP April 03, 2010 [id number] BOX,FIORDALIZA PATIENT [place] FEP ([id number]) PRESCRIPT ION FEPRX April 03, 2010 [id number] [phone] BOX,FIORDALIZA PATIENT [place] FEP ([id number]) PRESCRIPT ION FEPRX April 03, 2010 [id number] [phone] BOX,FIORDALIZA PATIENT [place] FEP [id number] PRESCRIPT ION FEP RX April 03, 2010 [id number] [phone] BOX,FIORDALIZA PATIENT [place] FEP [id number] PRESCRIPT ION FEP RX April 03, 2010 [id number] [phone] FIORDALIZA DÍAZ PATIENT Selected Encounter This section includes the information on record at MD for the Encounter. Date/Time Encounter Type Encounter Description Reason Provider Source Oct 20, 2024 10:00 AM OFFICE O/P EST MOD 30 MIN PRIMARY CARE/MEDICINE ICD-10-CM E11.42 Type 2 diabetes mellitus with diabetic polyneuropathy GABY JACINTO Monique Encounter Template Text not used by MD Assessments - Encounter Diagnoses This section includes the primary and secondary diagnoses documented for the Encounter. Date/Time Primary/Secondary Diagnosis Diagnosis Name Provider Source Oct 31, 2024 08:44 AM PRIMARY Type 2 diabetes mellitus with diabetic polyneuropathy GABY JACINTO [facility] Plan of Treatment: Future Appointments (+ [...] 20 appointments. The data comes from all MD treatment facilities. Appointment Date/Time Appointment Type Appointme nt Facility Name Oct 22, 2024 01:00 PM AMBULATORY - NONE [facility] Oct 28, 2024 10:30 AM [facility] Nov 10, 2024 06:35 PM AMBULATORY - MEDICINE [facility] Dec 19, 2024 02:00 PM AMBULATORY - NONE [facility] March 26, 2025 09:30 AM AMBULATORY - MEDICINE [facility] March 27, 2025 08:30 AM [facility] April 02, 2025 01:00 PM AMBULATORY - NONE [facility] April 09, 2025 09:00 AM AMBULATORY - MEDICINE [facility] Lab Results: +/- 30 days of the encounter This section includes the Chemistry and Hematology Lab Results on record with MD for the patient. Radiology Reports and Pathology Reports are provided separately, in subsequent sections. Lab Results This section contains the Chemistry/Hematology Results that were resulted 30 days before or 30 daysafter the date of the Encounter. Date/Time Source Result Type Result - Unit Interpretation Reference Range Specimen Type Comment Nov 10, 2024 06:44 PM [facility] COVID-19 DIAGNOSTIC (FLU/RSV)(STL) NASOPHARYNX Spec imen Type: [...] Nov 10, 2024 06:43 PM Reporting Lab: [place] [address] [address] [facility] [id number] Performing Lab: [facility] [address] [facility] [id number] INFLUENZA A Negative Negative INFLUENZA B Negative Negative COVID-19 (STL-PB) Not Detected Not Detec paramjit RSV (Cepheid) NEGATIVE Negative Sep 25, 2024 09:[address] [facility] [facility] URIC ACID 24-HOUR URINE PANEL 24-HOUR URINE Specimen Type: 24-HOUR URINE No comment entered. Ordering Provider: GABY JACINTO Report Released Date/Time: Sep 19, 2024 08:27 AM Reporting Lab: [facility] [address] [facility] [address] Performing Lab: [facility] [address] [facility] VOLUME 2847 mL UNCALCULATED URINE URIC ACID comment URIC ACID 24-HOUR URINE 740 L 120-820 Social History: Smoking Status (Most current) and Tobacco Use (All prior to encounter date) This section includes the most current, and the historical, smoking and tobacco- related health factors from the MD facility where the Encounter took place. Current Smoking Status This section includes the most current smoking, or tobacco-related health factor, from the MD facility where the Encounter took place. Date/Time Current Smoking Status Comment Facil ity Aug 02, 2023 02:00 PM VA-TOBACCO NEVER USED [facility] Tobacco Use History This section includes a history of the smoking, or tobacco-related health factors, that were collected on or before the date of the Encounter. The data comes from the MD facility where the Encounter took place. Date/Time Smoking Status/Tobacco Use Comment F acility Apr 28, 2022 02:00 PM VA-TOBACCO NEVER USED [facility] Feb 04, 2021 09:00 AM VA-TOBACCO NEVER [facility]ED [facility] Jul 07, 2019 03:37 PM VA-TOBACCO NEVER USED [facility] Dec 11, 2018 01:41 PM VA-TOBACCO NEVER USED [facility] May 29, 2017 03:13 PM LIFETIME NON-USER OF TOBACCO [facility] Nov 29, 2016 03:21 PM [facility]IFETIME NON-[facility]ACCO [facility] Encounter Notes: All associated encounter notes This section contains the clinical notes associated to the Encounter. Date/Time Encounter Note(s) Provider Source Oct 20, 2024 09:58 AM TELEHEALTH NOTE: LOCAL TITLE: PRIMARY CARE VIDEO CONNECT STL STANDARD TITLE: TELEHEALTH NOTE DATE OF NOTE: OCT 20, 2024@09:58 ENTRY DATE: OCT 20, 2024@09:58:39 AUTHOR: GABY JACINTO COSIGNER: URGENCY: STATUS: COMPLETED REASON FOR VISIT/CHIEF COMPLAINT: Evaluation and management of polyneuropathy/My EMG results HPI: Patient is a 43 year old BLACK OR MALE who presents for a [facility] for evaluation and management of polyneuropathy. The below results were discussed with . EMG conclusion 09/26/24: Abnormal study. The electrophysiological changes seen are suggestive of: This is most likely diabetic polyneuropathy with his known history and current symptoms. I am unable to assess small fiber neuropathy with this study. However, the above findings may be related the large fiber involvement. No evidence of nerve root irritation/radiculopathy with normal EMG findings today. -Patient is prescribed Gabapentin 100 mg TID with control of his symptoms. Patient reports the symptoms are controlled on this medication, however, he reports he cannot drive with this medication due to being drowsy. Patient reports he is going to request RA from work due to having to drive in to work once weekly. Patient reports working for the [employer]. SOURCE(S) OF HISTORY: Patient PAST MEDICAL HISTORY: 1) Benign essential hypertension (SNOMED CT 6407657) 2) Sleep apnea (SNOMED CT 59051969) 3) Osteoarthritis of knee (SNOMED CT 878636140) 4) Diabetes mellitus type 2 5) Insomnia 6) Gout 7) Constipation 8) Hyperlipidemia 9) Gastroesophageal reflux disease 10) Obesity 11) Vitamin D deficiency 12) Decreased vitamin B12 level 13) Constipation 14) Pain of left knee region 15) Depression 16) Anxiety 17) Headache 18) Pain in right hip joint 19) Low back pain 20) Polyneuropathy due to diabetes mellitus ALLERGIES: METHADONE, METFORMIN ALLERGY REVIEW: Allergy list [...] 50MCG (D3-2,000UNIT) TAB TAKE TWO TABLETS ACTIVE (S) BY MOUTH ONCE A DAY FOR VITAMIN [...] BY MOUTH ACTIVE ONCE A DAY 7) GABAPENTIN 100MG CAP TAKE ONE CAPSULE BY MOUTH THREE ACTIVE TIMES A DAY FOR NERVE PAIN 8) HYDROPHILIC (EQV EUCERIN) TOP CREAM APPLY LIGHTLY TO ACTIVE AFFECTED AREA(S) ONCE A DAY FOR DRY SKIN. (EXTERNAL USE ONLY) 9) INSULIN SYRINGE 0.5ML 30G 12MM USE 1 SYRINGE UNDER ACTIVE THE SKIN ONCE A DAY TO USE WITH INSULIN 10) INSULIN,ASPART(EQV-NOVLG)100UN/ ML FLXPEN INJECT 10 ACTIVE UNITS UNDER THE SKIN THREE TIMES A DAY BEFORE MEALS FOR BLOOD SUGAR CONTROL. ADMINISTER 10 MINUTES BEFORE FOOD DIRECTED. REFRIGERATE UN-OPENED PENS. DISCARD CARTRIDGE 28 DAYS AFTER OPENING. 11) INSULIN,GLARGINE-YFGN 100UNIT/ML INJ INJECT 42 UNITS ACTIVE (S) UNDER THE SKIN ONCE A DAY TO CONTROL BLOOD SUGAR. ADMINISTER AT SAME TIME EACH DAY DIRECTED. DISCARD ANY VIAL 28 DAYS AFTER OPENING. 12) LIDOCAINE 5% PATCH APPLY 1 PATCH TO SKIN SITE ONCE A ACTIVE DAY NEEDED APPLY PATCH AND PRESS FIRMLY FOR 10-15 SECONDS. KEEP ON FOR 12 HOURS THEN REMOVE PATCH FOR 12 HOURS. 13) LISINOPRIL 40MG TAB TAKE ONE AND ONE-HALF TABLETS BY ACTIVE MOUTH ONCE A DAY FOR HIGH BLOOD PRESSURE FOR HEART OR BLOOD PRESSURE 14) METFORMIN HCL 500MG 24HR SA TAB TAKE TWO TABLETS BY ACTIVE MOUTH ONCE A DAY FOR BLOOD SUGAR CONTROL. TAKE WITH FOOD. AVOID ALCOHOL. DISCONTINUE BEFORE GETTING XRAY DYE. 15) OMEPRAZOLE 40MG EC CAP TAKE ONE CAPSULE BY MOUTH ACTIVE (S) EVERY MORNING BEFORE A MEAL TO LOWER [...] or incontinence. Musculoskeletal/Extremities: Denies edema. Denies pain. /PUBLIC EMPLOYMENT MEDIATOR: Denies frequency, hesitancy, urgency, or hematuria. Psychology: Denies insomnia or SI/HI. Denies anxiety or depression. Neurology: Denies ZAVALA, tremors, neuropathy, or seizures. Skin: Denies rashes, skin lesions. PHYSICAL EXAMINATION: Lungs: No accessory muscle use. Psychiatric: Appropriate mood and affect. DATA REVIEW: HGA1C 6.3 H % 09/19/2024 09:11 ======== Lipid Panel: TRIGLYCERIDE 180 H mg/dL 09/19/2024 09:11 CHOLESTEROL 116 mg/dL 09/19/2024 09:11 HDL(New) 29 L mg/dL 09/19/2024 09:11 CALCULATED LDL 51 mg/dL 09/19/2024 09:11 ====== CMP: SODIUM 138 mEq/L 09/19/2024 09:11 POTASSIUM [...] 09:11 EGFR (CKD-EPI 2020) 88.8 09/19/2024 09:11 ======= CBC: WBC 5.3 10*3/uL 09/19/2024 09:11 RBC [...] 09:11 BASOPHILS, ABSOLUTE 0.04 10*3/uL 09/19/2024 09:11 ======== PSA: PROST. SPECIFIC AG.(PB-STL) 0.694 ng/mL 09/19/2024 09:11 Result: Acceptable ASSESSMENT/PLAN: Continue medication regimen. Patient declines medication changes today. RETURN TO CLINIC: As previously scheduled. I spent 35 minutes performing services for this patient: before, during and after the VVC visit today more than 50% of the provider's VVC visit time with a patient is spent in counseling or coordination of care. SUMMARY STATEMENT: Plan of care has been discussed with including expected therapeutic benefits and potential side effects of prescribed medication and treatments. verbalizes understanding and is in agreement with the plan of care. Patient was instructed to keep all scheduled appointments and contact hand expansion envelope maker for any additional problems. 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 Handwritten corrections, additions and/or deletions were made to the list, as appropriate. Corrected Outpatient Medication List was provided to the patient/caregiver. /caroline/ Gaby Jacinto DNP, MEDICAL APPOINTMENT SCHEDULER, TREE DOCTOR-C Primary Care Nurse Practitioner Signed: 10/20/2024 10:13 GABY JACINTO [facility] Oct 20, 2024 09:48 AM TELEHEALTH NOTE: LOCAL TITLE: PCS PACT [place] VIDEO CONNECT STL STANDARD TITLE: TELEHEALTH NOTE DATE OF NOTE: OCT 20, 2024@09:48 ENTRY DATE: OCT 20, 2024@09:48:10 AUTHOR: SAUNDRA MARTINEZ EXP COSIGNER: URGENCY: STATUS: COMPLETED Patient Identifiers : Full Name Date of Visit conducted by Clinical Video Telehealth. V15 [facility] Video Connect/Video to Home VA Video Connect (VVC)/Video to home template v1.5 Visit conducted by synchronous telehealth. Location/emergency number confirmed. Environment surveyed and all participants identified. Virtual conference room locked. VVC/Video to home appointment information: The following items were reviewed: - The nature of telehealth, its benefits, and risks. - Confidentiality and its limits. - The importance of having a confidential location for the service. - The emergency plan. - The appointment should be treated like an in person appointment (no smoking or driving during session, showing up fully dressed, etc.) *The Virtual Medical Room was locked for this encounter. *A survey of the environment was conducted and it is appropriate to conduct a VVC appointment. *Confirmed [place] Non-VA location for this appointment: [facility] [address] [place] [address] [address] [place], [place] [address] Address and phone number verified with . Address: Phone: does not have an emergency contact. * was notified of right to decline Telehealth services and eligibility for other options. consented to be seen via VVC. EMERGENCY PLAN In the event of an emergency, the or family will call emergency services, if capable. The Teleprovider will remain in the virtual medical room until emergency response arrives and handoff to emergency services is complete. If [place] is unable to make emergency call, the Teleprovider is to call the national E911 service at [phone] and ask to be connected to emergency services for the 's location. 's Crisis Line: Dial 988 then press 1, or text [phone] Office of Connected Care Helpdesk (OCC): [phone] or [phone] Verified Provider's location and contact information for this appointment: [facility] [address] [place] [address] x Provider Visit: Reason for Visit: Established Follow-Up: Patient states he is having nerve pain. Blood pressure has been running normal. Follow up with A1c. Allergy Review: METHADONE, METFORMIN Allergy list reviewed and remains current. Recent Vital Signs: Temperature: 98.3 F [36.8 C] (09/19/2024 08:24) Pulse: 94 (09/19/2024 08:24) Respiration: 18 (09/19/2024 08:24) B/P: 131/91 (09/19/2024 08:53) Pain: 4 (09/19/2024 08:24) Wt: 303 lb [137.44 kg] (09/19/2024 08:24) Ht: 72 in [182.9 cm] (04/28/2022 14:10) BMI: 41.2 POX: 96% (09/19/2024 08:24) Would you like to discuss any personal problem, family problem, alcohol use, drug use, or a mental or emotional illness? No My [facility] ([facility]), please select appointment type: [facility] Video Connect (VVC) - Are you registered for [facility]? Yes - done /caroline/ SAUNDRA MARTINEZ LPN LICENSED PRACITCAL NURSE Signed: 10/20/2024 09:55 SAUNDRA MARTINEZ [facility]
[2025-06-27 11:17] LABS: Hematocrit 45.2 % (42.0-52.0); Hemoglobin 15.0 g/dL (14.0-18.0); Immature Granulocyte Percent A 0.4 % (0-0.5); Lymphocytes Absolute Auto 1.25 K/mm3 (0.9-3.2); Mean Corpuscular HGB Conc 33.2 g/dl (32-36); Mean Corpuscular Hemoglobin 28.6 pg (26-34); Mean Corpuscular Volume 86.1 fl (80-100); Nucleated Red Blood Cells Absolute Auto 0.000 K/mm3 (0.0-0.012); Nucleated Red Blood Cells Perc 0.0 % (0.0-0.2); Platelet Count Result 204 k/mm3 (150-375); Red Blood Count 5.25 M/mm3 (4.6-6.20); White Blood Count 5.6 K/mm3 (4.5-10.0)
[2025-06-27 11:30] LABS: Alanine Aminotransferase 25 U/L (6-50); Albumin Level 4.4 g/dL (3.5-5.1); Alkaline Phosphatase 73 U/L (38-126); Anion Gap 9 mmol/L (4-12); Aspartate Amino Transferase 32 U/L (17-59); Bilirubin,Total 1.5 mg/dL (0.2-1.3); Blood Urea Nitrogen 15 mg/dL (9-20); Calcium 9.2 mg/dL (8.4-10.2); Carbon Dioxide 28 mmol/L (22-30); Chloride 101 mmol/L (98-107); Cholesterol 144 mg/dL (0-200); Estimated Glomerular Filt Rate > 60; Glucose 101 mg/dL (65-110); HDL Direct 35 mg/dL; Magnesium 2.2 mg/dL (1.6-2.3); Potassium 3.9 mmol/L (3.4-5.0); Sodium 138 mmol/L (137-145); Total Protein 7.8 g/dL (6.3-8.2); Triglycerides 137 mg/dL (<150); Uric Acid 7.3 mg/dL (3.5-8.5)
[2025-06-27 11:38] LABS: Free T3 4.85 pg/mL (2.71-6.16); Free T4 Free Thyroxine 1.09 ng/dL (0.78-2.19)
[2025-06-27 11:56] LABS: Hemoglobin A1C 7.1 % (<5.7)
[2025-06-27 12:06] LABS: Thyroid Stimulating Hormone 1.730 uIU/mL (0.465-4.680)
[2025-06-27 12:25] LABS: Vitamin B12 717.0 pg/mL (239-931)
[2025-06-27 13:00] LABS: MALB Creatinine Ratio 6.9 mg/g (0-30)
== END 2025-06-27 10:11 | disposition home or self-care (01) ==
LOC: ANHLAB 10:21
PROVIDERS: PCP Internal Medicine; Visit Provider Internal Medicine
DX: E11.9 Type 2 diabetes mellitus without complications (principal); I10 Essential (primary) hypertension; E78.5 Hyperlipidemia, unspecified; R00.0 Tachycardia, unspecified; D72.829 Elevated white blood cell count, unspecified; E55.9 Vitamin D deficiency, unspecified; Z79.899 Other long term (current) drug therapy; M10.9 Gout, unspecified
CPT/HCPCS: 36415; 80053; 80061; 82043; 82306; 82607; 83036; 83735; 84439; 84443; 84481; 84550; 85025